=== PATIENT | female | born 1940 | race Caucasian/White ===

== ENCOUNTER 2016-11-16 19:22 | Inpatient (IN) ==
[2016-11-16] MEDS ORDERED: IOPAMIDOL 100 ML BOTTLE IJ ONE (19:23)
[2016-11-16] MEDS ORDERED: ONDANSETRON 4 MG/2 ML VIAL IV ONE ×2 (19:38→21:53)
[2016-11-16] MEDS: HYDROmorphone 2 MG/ML SYRINGE IV PRN ×2 (20:02→22:00)
[2016-11-16 20:43] LABS: Basophils # (Auto) 0.1 K/mcL (0.0-0.3); Basophils % (Auto) 0.7 % (0.0-2.0); Eosinophils # (Auto) 0.5 K/mcL (0.0-0.7); Eosinophils % (Auto) 4.5 % (0.0-7.0); Granulocytes % (Auto) 61.2 % (38.0-78.0); Lymphocytes # (Auto) 2.6 K/mcL (1.5-4.8); Lymphocytes % (Auto) 24.8 % (15.5-49.0); Mean Cell Volume 86.9 fL (80.0-100.0); Mean Corpuscular HGB Conc 33.4 g/dL (31.0-36.0); Monocytes # (Auto) 0.9 K/mcL (0.1-0.9); Monocytes % (Auto) 8.8 % (1.0-12.0); Platelet Count 252 K/mcL (140-440); Red Cell Distribution Width 12.7 % (11.5-14.5)
[2016-11-16 22:05] LABS: Appearance,Urine HAZY; Bacteria,Urine FEW /hpf (0); Bilirubin,Urine NEG (NEG); Color,Urine YELLOW; Glucose,Urine (UA) NEGATIVE (NEG); Leukocyte Esterase,Urine 25 /uL (NEG); Nitrate,Urine NEG (NEG); Protein,Urine NEG (NEG); Specific Gravity,Urine 1.008 (1.000-1.035); Urine Amorphous Crystals MOD /hpf (0); Urine Blood NEG mg/dL (<0.03); Urine RBC < 1 /hpf (0-1); Urine Squamous Epithelial Cell < 1 /hpf (0-4); Urine WBC 6 /hpf (0-4); Urobilinogen,Urine NEG (NEG)
[2016-11-16] MEDS: 0.9 % SODIUM CHLORIDE 1,000 ML IV SCH (23:40)
[2016-11-17] MEDS: ONDANSETRON 4 MG/2 ML VIAL IV PRN ×6 (02:42→20:08)
[2016-11-17] MEDS: HYDROmorphone 2 MG/ML SYRINGE IV PRN ×2 (02:44→23:40)
--- NOTE | 2016-11-17 07:10 | XRay Report ---
CLINICAL INFORMATION: Abdominal pain history of small bowel obstruction COMPARISON: None. FINDINGS: The stomach and multiple loops of proximal small bowel are mildly dilated and demonstrate air-fluid levels with decompression of the distal small bowel and colon. Findings compatible with partial mid jejunal obstruction. No soft tissue mass, organomegaly, pathologic calcification or free air. IMPRESSION: Partial small bowel obstruction - mid jejunal level Interpreted and Authenticated by: Rocky Arevalo 11/17/16
--- NOTE | 2016-11-17 07:17 | XRay Report ---
CLINICAL INFORMATION: Small bowel obstruction - NG placement COMPARISON: Abdominal film 11/16/2016 1948 hours FINDINGS: NG tube overlies the gastric body. Stomach and multiple loops of central small bowel remain mildly dilated with decompression of the distal small bowel and colon. No free air or soft tissue mass IMPRESSION: NG tube in satisfactory position tip overlies the gastric body. Small bowel obstruction pattern again noted Interpreted and Authenticated by: Rocky Arevalo 11/17/16
--- NOTE | 2016-11-17 09:03 | Cat Scan Report ---
CLINICAL INFORMATION: Abdominal pain and distention - suspect small bowel obstruction COMPARISON: 11/09/[address] TECHNIQUE: Following enteric contrast, 80 cc of Isovue-300 were injected intravenously, and 60 seconds later, 2.5 mm helical slices were obtained from the mid heart through the subtrochanteric regions. Following reconstruction, 2.5 mm sagittal, coronal and axial reformatted images were processed and reviewed at bone, lung and soft tissue windows. Five minutes later, 5 mm helical slices were obtained from the mid heart through the kidneys and viewed at soft tissue windows. FINDINGS: Lung bases show minor lingular scarring. No effusions. The visualized heart is mildly enlarged. Images through the abdomen show minimal fatty change within the liver, but no focal lesion. The gallbladder and bile ducts are normal: CBD is 5 mm. There is a 1.4 mm nonobstructing stone in an inferior calyx of the left kidney. Two simple cysts in the inferior pole the left kidney, 19 mm and 11 mm respectively, are unchanged. The remaining kidneys, adrenal, spleen, pancreas and aorta, including aortic branches, are normal in size, configuration and attenuation without focal lesion. Images through the pelvis show hysterectomy changes. A 2.8 cm cyst on the left ovary is stable since 2013 CT. There is moderate dilatation of the stomach, duodenum and proximal jejunum with transition into decompressed small bowel in the mid jejunum (coronal image 37, sagittal image 62 and axial image 81). It is likely due to adhesions or stricture. Distal small bowel bowel is moderately decompressed. There is less than expected amount of stool seen within the colon. Small amount of free peritoneal fluid is noted in the left false pelvis There is no free air. Bone windows show mild degenerative change in the lumbar spine IMPRESSION: 1. Partial small bowel obstruction at the mid jejunal level ostensibly related to adhesions or stricture. A very small amount of free fluid in the left pelvis may indicate early third spacing. There is no supportive evidence of ischemia or free air to suggest perforation. 2. Two cyst inferior pole left kidney, 11 mm and 19 mm respectively, stable. 1.4 mm nonobstructing stone inferior calyx left kidney. 3. 2.8 cm simple cyst left ovary unchanged Interpreted and Authenticated by: Rocky Arevalo 11/17/16
[2016-11-17] MEDS: 0.9 % SODIUM CHLORIDE 1,000 ML IV SCH ×2 (13:00→23:33)
[2016-11-17] MEDS: ACETAMINOPHEN W/CODEINE #3 1 TABLET PO PRN ×2 (13:01→20:08)
--- NOTE | 2016-11-17 14:19 | General Surg History&Physical ---
History of Present Illness Patient information: Note initiated : 11/17/16 at 2:15 pm Service Date, if different from initiated Date: [] Patient: Deepthi Giang 76 y/o F admitted on 11/16/16 for constipation, abdominal pain, n/v. Chief Complaint: [] Chief complaint: abdominal pain nausea and vomiting HPI: Ms. Giang is a 76 year old female with history of onset of mid abdominal pain with bloating on . This was followed by and continued throughout yesterday She came to the emergency room and it was noted that she had dilated loops of small bowel. CT of the abdomen suggests small bowel obstruction. She has had 3 episodes of small bowel obstruction in the past. 2 of these episodes required laparotomy with adhesio lysis. Her last episode was 11 years ago. Her last bowel movement was on Saturday. A small bowel follow-through was ordered during the night and she is presently undergoing the series Her initial 4 films shows slow transit through the small bowel. Review of Systems - Constitutional fatigue, headache(s), lethargy, malaise, night sweats, weakness - EENT Nose, mouth and throat: dizziness, headache(s), neck pain, no dysphagia - Cardiovascular claudication, dyspnea on exertion, palpatations, no chest pain at rest, no syncope - Respiratory no cough, no wheezing, no chest congestion - Gastrointestinal abdominal pain, belching, bloating, constipation, nausea, vomiting - Genitourinary Genitourinary: no dysuria, no flank pain, no nocturia, no urinary hesitancy, no urinary urgency - Musculoskeletal muscle cramps, muscle weakness, myalgias, neck pain - Integumentary no changing lesions, no lesions, no new lesions, no pruritus, no rash, no sores - Neurological headache(s), weakness - Psychiatric abnormal sleep pattern, anxiety, depression - Endocrine cold intolerance, fatigue, heat intolerance - Hematologic/Lymphatic no easy bleeding, no easy bruising, no lymphadenopathy - Allergic/Immunologic no tongue swelling, no throat swelling, no uticaria, no wheezing, no lip swelling Past History Past medical history: anemia Cerebral aneurysm degenerative disc disease Diabetes mellitus Hypertension Monoclonal gammopathy Polymyalgia rheumatica Chronic urinary tract infections Gastroesophageal reflux diseasewith stricture Past surgical history: appendectomy Craniotomy Exploratory laparotomy 2 Rotator cuff repair bdominal hysterectomy with bilateral salpingo-oophorectomy Past family history: owen diabetes mellitus Congestive heart failure Coronary artery disease Past social history: Lives locally Retired Never smoker Never drinker Does not use drugs Medications and Allergies Home Medications Medication Instructions Recorded Confirmed Type aspirin 81 mg chewable tablet 81 mg PO QDAY tab 02/21/15 11/17/16 History lysine 500 mg tablet 1,000 mg PO BID tab 02/21/15 11/17/16 History coenzyme Q10 30 mg capsule 30 mg PO QDAY cap 03/30/15 11/17/16 History blood sugar diagnostic strips See Dose Instructions .ROUTE 03/02/16 07/31/16 Rx .MEDSUPPLY #100 each blood-glucose meter kit See Dose Instructions .ROUTE 03/02/16 07/31/16 Rx .MEDSUPPLY #1 each lancets 33 gauge See Dose Instructions .ROUTE 03/02/16 07/31/16 Rx .MEDSUPPLY #100 each alpha lipoic acid 300 mg capsule 300 mg PO QDAY 07/31/16 11/17/16 History calcium carbonate 500 mg calcium 500 mg PO BID 07/31/16 11/17/16 History (1,250 mg) tablet carvedilol 3.125 mg tablet 3.125 mg PO BID #1 tab 07/31/16 11/17/16 Rx metformin 500 mg tablet 250 mg PO QDAY #45 tab 10/04/16 11/17/16 Rx acetaminophen 300 mg-codeine 30 mg 1 tab PO BID PRN #100 tab 11/09/16 11/17/16 Rx tablet losartan 100 mg tablet 100 mg PO QDAY #30 tab 11/15/16 11/17/16 Rx Natural Senna Laxative 1 PRN 11/17/16 History Allergies Allergy/AdvReac Type Severity Reaction Status Date / Time fluvastatin [From Lescol] Allergy Severe Unknown Verified 01/16/16 09:26 quetiapine [From Seroquel] Allergy Severe Unknown Verified 01/16/16 09:26 Moexipril [From Univasc] Allergy Intermediate Unknown Verified 01/16/16 09:26 rofecoxib [From Vioxx] Allergy Intermediate Unknown Verified 01/16/16 09:26 rosuvastatin [From Crestor] Allergy Intermediate Unknown Verified 01/16/16 09:26 simvastatin [From Vytorin] Allergy Intermediate Unknown Verified 01/16/16 09:26 [id number] Reductase Allergy Intermediate Unknown Verified 01/16/16 09:26 Inhibitor Sulfa (Sulfonamide Allergy Intermediate Unknown Verified 01/16/16 09:26 Antibiotics) topiramate [From Topamax] Allergy Intermediate Unknown Verified 01/16/16 09:26 pregabalin [From Lyrica] AdvReac Severe Muscle Verified 01/16/16 09:26 weakness ezetimibe [From Vytorin] AdvReac Mild Dark urine Verified 01/16/16 09:26 Exam Temp Pulse Resp BP Pulse Ox 97.2 F L 82 20 143/76 95 11/17/16 12:00 11/17/16 12:00 11/17/16 12:00 11/17/16 12:00 11/17/16 12:00 - General physical appearance well developed, well nourished, no distress - Eyes PERRL, normal ocular movement - ENT normal pinna, normal nares, normal mucosa, no hearing loss, no congestion - Head Head exam IM: Present: atraumatic, normocephalic - Neck no masses, no bruits, trachea midline, no lymphadectomy, no venous distension, limited ROM - Cardiovascular Cardiovascular exam IM: Present: normal rate and rhythm - Respiratory normal expansion, normal respiratory effort, clear to percussion, clear to auscultation - Abdomen Abdomen: Present: soft, tender (mild mid abdominal tenderness), bowel sounds, distended (oderate distention with hypoactive bowel sounds) Hernia: Present: none - Integumentary Present: no rash, no growths, no abnormal pigmentation - Neurologic Present: normal coordination, normal sensation - Musculoskeletal Present: normal gait, normal posture - Psychiatric Present: oriented to time, oriented to person, oriented to place, speech is normal, memory intact Assessment and Plan (1) Small bowel obstruction we'll complete small bowel follow-through and make decision concerning operative therapy based on the results of this test In the meantime she will be nothing by mouth with nasogastric suction If she starts to decompress will follow through untilthe morning and make a decision at that time Status: Acute (2) Cervical disc disorder of mid-cervical region Status: Chronic (3) Degenerative joint disease Status: Chronic Comment: chronic low back pain secondary to DJD. osteoarthritis of neck. 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
--- NOTE | 2016-11-17 14:21 | XRay Report ---
CLINICAL INFORMATION: Small bowel obstruction - mid jejunal level Technique: Water-soluble contrast and saline was administered orally and serial imaging was obtained over two hours FINDINGS: The stomach, duodenum and jejunum are mildly dilated. There appears be a very mild mid jejunal stricture which only mildly impeded the passage of the enteric contrast. On the two hour film, the enteric contrast passed passed into the entire small bowel and right colon. IMPRESSION: Focal narrowing of the mid jejunum which only mildly impeded passage of barium. Findings most compatible with resolving small bowel obstruction likely due to jejunal adhesion or stricture Interpreted and Authenticated by: Rocky Arevalo 11/17/16
[2016-11-17] MEDS: METOCLOPRAMIDE 10 MG/2 ML VIAL IV SCH ×2 (17:26→23:32)
[2016-11-18] MEDS: ACETAMINOPHEN W/CODEINE #3 1 TABLET PO PRN ×2 (01:22→21:47)
[2016-11-18] MEDS: ONDANSETRON 4 MG/2 ML VIAL IV PRN ×2 (01:24→22:13)
[2016-11-18] MEDS ORDERED: hydrALAZINE 20 MG/ML VIAL IV PRN ×3 (03:54→23:45)
[2016-11-18] MEDS ORDERED: hydrALAZINE 20 MG/ML VIAL ONE ×2 (04:07→06:00)
[2016-11-18] MEDS: HYDROmorphone 2 MG/ML SYRINGE IV PRN ×4 (04:24→17:52)
[2016-11-18] MEDS ORDERED: ACETAMINOPHEN 1,000 MG/100 ML BOTTLE IV PRN ×2 (06:00→07:16)
[2016-11-18] MEDS: METOCLOPRAMIDE 10 MG/2 ML VIAL IV SCH ×4 (06:04→23:59)
[2016-11-18 06:21] LABS: Basophils # (Auto) 0 K/mcL (0.0-0.3); Basophils % (Auto) 0.4 % (0.0-2.0); Eosinophils # (Auto) 0.2 K/mcL (0.0-0.7); Eosinophils % (Auto) 1.6 % (0.0-7.0); Granulocytes % (Auto) 71.4 % (38.0-78.0); Lymphocytes # (Auto) 1.8 K/mcL (1.5-4.8); Lymphocytes % (Auto) 19.1 % (15.5-49.0); Mean Cell Volume 88.8 fL (80.0-100.0); Mean Corpuscular Hemoglobin 29.3 pg (26.0-34.0); Monocytes # (Auto) 0.7 K/mcL (0.1-0.9); Monocytes % (Auto) 7.5 % (1.0-12.0); Platelet Count 196 K/mcL (140-440); RBC 4.02 M/mcL (4.00-5.20); Red Cell Distribution Width 13.1 % (11.5-14.5)
[2016-11-18] MEDS: hydrALAZINE 20 MG/ML VIAL IV SCH ×10 (06:54→23:45)
[2016-11-18] MEDS: 0.9 % SODIUM CHLORIDE 1,000 ML IV SCH ×4 (06:55→23:59)
[2016-11-18 07:16] LABS: Blood Urea Nitrogen 6 mg/dl (8-23)
--- NOTE | 2016-11-18 09:17 | XRay Report ---
CLINICAL INFORMATION: Follow small bowel obstruction COMPARISON: Small follow-through study 11/15/2016 FINDINGS: NG tip overlies the distal gastric body. Stool gas pattern is normal on today's study. The administered barium is scattered within the right and transverse colon. No free air or soft tissue mass IMPRESSION: Negative exam. Interval resolution in small bowel obstruction. Interpreted and Authenticated by: Rocky Arevalo 11/18/16
[2016-11-18] MEDS: KETOROLAC 15 MG/ML VIAL IV PRN ×3 (10:14→22:13)
--- NOTE | 2016-11-18 13:06 | General Surgery Progress Note ---
Subjective Patient reports: feels better, pain is less, flatus, bowel movement, afebrile Narrative: Note initiated : 11/18/16 at 1:03 pm Service Date, if different from initiated Date: [] Patient: Deepthi Giang 76 y/o F admitted on 11/16/16 for constipation, abdominal pain, n/v. Chief Complaint: [patient is doing much better. She had more bowel movements last night and has had flatus all day. Her morning x-rays shows near complete resolution of the small bowel distention. There is some contrast in the left colon. She has had headache which is a chronic problem and she has had some elevation in her blood pressure which has been controlled with intermittent IV medications.] Objective Temp Pulse Resp BP Pulse Ox 97.7 F 100 H 14 125/71 90 11/18/16 11:01 11/18/16 11:01 11/18/16 11:01 11/18/16 11:01 11/18/16 11:01 - Additional Data Intake & Output - Last 24 hours: Intake & Output 11/16/16 11/17/16 11/18/16 11/19/16 05:59 05:59 05:59 05:59 Intake Total 2120 / 2120 940 / 940 Output Total 300 / 850 2800 / 2800 300 / 300 Balance -300 / -850 -680 / -680 640 / 640 Weight 122 lb - Additional Exam HEENT no acute abnormality Neck supple without JVD Chest clear to auscultation Heart regular rhythm no ectopy Abdomen mild distention with good active bowel sounds, no tenderness noted Extremities no edema Neurologic exam no focal deficits - Labs 11/18/16 04:55 11/18/16 04:55 Diabetes panel 11/18/16 Range/Units 04:55 Sodium 137 (133-145) mmol/L Potassium 3.0 L (3.3-5.1) mmol/L Chloride 98 (96-108) mmol/L Carbon Dioxide 22 (22-30) mmol/L BUN 6 L (8-23) mg/dl Creatinine 0.6 (0.6-1.1) mg/dl Glucose 139 H (70-105) mg/dL Calcium 8.2 L (8.6-10.4) mg/dl Calcium panel 11/18/16 Range/Units 04:55 Calcium 8.2 L (8.6-10.4) mg/dl Pituitary panel 11/18/16 Range/Units 04:55 Sodium 137 (133-145) mmol/L Potassium 3.0 L (3.3-5.1) mmol/L Chloride 98 (96-108) mmol/L Carbon Dioxide 22 (22-30) mmol/L BUN 6 L (8-23) mg/dl Creatinine 0.6 (0.6-1.1) mg/dl Glucose 139 H (70-105) mg/dL Calcium 8.2 L (8.6-10.4) mg/dl Adrenal panel 11/18/16 Range/Units 04:55 Sodium 137 (133-145) mmol/L Potassium 3.0 L (3.3-5.1) mmol/L Chloride 98 (96-108) mmol/L Carbon Dioxide 22 (22-30) mmol/L BUN 6 L (8-23) mg/dl Creatinine 0.6 (0.6-1.1) mg/dl Glucose 139 H (70-105) mg/dL Calcium 8.2 L (8.6-10.4) mg/dl Assessment and Plan (1) Small bowel obstruction Status: Acute Assessment and plan: patient is significantly improved Nasogastric tube is discontinued She will be started on clear liquids If she does well she may be discharged late tomorrow Two-view abdominal x-rays in the morning Current Visit: Yes (2) Cervical disc disorder of mid-cervical region Status: Chronic Current Visit: No (3) Degenerative joint disease Problem details: chronic low back pain secondary to DJD. osteoarthritis of neck. Status: Chronic Current Visit: No (4) Diabetes mellitus type 2 in nonobese Status: Chronic Current Visit: No (5) Hypertension Status: Chronic Current Visit: No (6) Polymyalgia rheumatica Problem details: H/O Status: Chronic Current Visit: No - Time Spent With Patient Total time spent is greater than 50% in coordination of care (as documented) at patient's floor/unit and/or counseling patient:
[2016-11-18] MEDS ORDERED: POTASSIUM CHLORIDE 40 MEQ in DEXTROSE 5% IN WATER 500 ML IV ONE (13:30)
[2016-11-18] MEDS: PANTOPRAZOLE 40 MG PACKET PO SCH (17:59)
[2016-11-18] MEDS: CARVEDILOL 3.125 MG TABLET PO SCH (22:13)
[2016-11-19] MEDS: ONDANSETRON 4 MG/2 ML VIAL IV PRN (02:34)
[2016-11-19] MEDS: ACETAMINOPHEN W/CODEINE #3 1 TABLET PO PRN ×2 (02:35→14:42)
[2016-11-19 05:47] LABS: Basophils # (Auto) 0 K/mcL (0.0-0.3); Basophils % (Auto) 0.2 % (0.0-2.0); Eosinophils # (Auto) 0 K/mcL (0.0-0.7); Eosinophils % (Auto) 0.5 % (0.0-7.0); Lymphocytes # (Auto) 1.8 K/mcL (1.5-4.8); Lymphocytes % (Auto) 17.8 % (15.5-49.0); Mean Cell Volume 89.6 fL (80.0-100.0); Mean Corpuscular Hemoglobin 29.6 pg (26.0-34.0); Monocytes # (Auto) 0.9 K/mcL (0.1-0.9); Monocytes % (Auto) 9.5 % (1.0-12.0); Platelet Count 183 K/mcL (140-440); RBC 3.46 M/mcL (4.00-5.20); Red Cell Distribution Width 13.2 % (11.5-14.5)
[2016-11-19] MEDS: METOCLOPRAMIDE 10 MG/2 ML VIAL IV SCH ×2 (06:13→11:59)
[2016-11-19] MEDS: PANTOPRAZOLE 40 MG PACKET PO SCH (07:40)
--- NOTE | 2016-11-19 08:02 | XRay Report ---
HISTORY: Reason for Exam:FOR F/U OF ILEUS FINDINGS: There is oral contrast in the colon. There are multiple air-fluid levels in the large intestine but the colon is nondilated. The small intestine is decompressed and there is no residual contrast in the small bowel. No free intra-abdominal air is present. The nasogastric tube has been removed since yesterday. IMPRESSION: Resulting ileus Interpreted and Authenticated by: Kurtis Botello 11/19/16
[2016-11-19] MEDS: CARVEDILOL 3.125 MG TABLET PO SCH (08:47)
[2016-11-19 08:50] LABS: Albumin 3.6 gm/dL (3.2-5.2); Albumin/Globulin Ratio 1.6 (1.0-2.3)
[2016-11-19] MEDS ORDERED: LOSARTAN 50 MG TABLET PO SCH (09:00)
[2016-11-19] MEDS: 0.9 % SODIUM CHLORIDE 1,000 ML IV SCH (09:44)
--- NOTE | 2016-11-19 15:46 | General Surgery Progress Note ---
Subjective Patient reports: feels better, pain is less, tolerating liquids well, flatus, bowel movement, afebrile Narrative: Note initiated : 11/19/16 at 3:43 pm Service Date, if different from initiated Date: [] Patient: Deepthi Giang 76 y/o F admitted on 11/16/16 for Constipation,Abd Pain ,N/V /Small Bowel Obstruction. Chief Complaint: [the patient is doing much better. She no longer has abdominal pain. She denies having nause. She has passed a large volume of flatus and has had another small bowel movement. She still has mild distention but he denies having any discomfort. Abdominal x-rays show complete decompression of small bowel with a small amount of gas in the colon.] Objective Temp Pulse Resp BP Pulse Ox 98.3 F 79 16 148/66 93 11/19/16 11:43 11/19/16 11:43 11/19/16 11:43 11/19/16 11:43 11/19/16 11:43 - Additional Data Intake & Output - Last 24 hours: Intake & Output 11/17/16 11/18/16 11/19/16 11/20/16 05:59 05:59 05:59 05:59 Intake Total 2120 / 2120 3440 / 3440 1215 / 1215 Output Total 300 / 850 2800 / 2800 1525 / 1525 1000 / 1000 Balance -300 / -850 -680 / -680 1915 / 1915 215 / 215 Weight 122 lb 122 lb 8 oz - Additional Exam HEENT--- no abnormality noted Neck--supple Chest--- clear to auscultation Heart---regular rhythm no tachycardia Abdomen--- soft pliable, nondistended, with active bowel ssounds Extremities--- no edema - Labs 11/19/16 04:45 11/19/16 04:45 Diabetes panel 11/19/16 11/19/16 Range/Units 04:45 04:45 Sodium TNP 135 Potassium TNP 3.8 Chloride TNP 99 Carbon Dioxide TNP 22 BUN TNP 9 Creatinine TNP 0.5 L Glucose TNP 114 H Calcium TNP 8.1 L AST TNP 20 ALT TNP 12 Alkaline Phosphatase TNP 59 Total Protein TNP 5.9 Albumin TNP 3.6 Calcium panel 11/19/16 11/19/16 Range/Units 04:45 04:45 Calcium TNP 8.1 L Albumin TNP 3.6 Pituitary panel 11/19/16 11/19/16 Range/Units 04:45 04:45 Sodium TNP 135 Potassium TNP 3.8 Chloride TNP 99 Carbon Dioxide TNP 22 BUN TNP 9 Creatinine TNP 0.5 L Glucose TNP 114 H Calcium TNP 8.1 L Adrenal panel 11/19/16 11/19/16 Range/Units 04:45 04:45 Sodium TNP 135 Potassium TNP 3.8 Chloride TNP 99 Carbon Dioxide TNP 22 BUN TNP 9 Creatinine TNP 0.5 L Glucose TNP 114 H Calcium TNP 8.1 L Total Bilirubin TNP 0.3 AST TNP 20 ALT TNP 12 Alkaline Phosphatase TNP 59 Total Protein TNP 5.9 Albumin TNP 3.6 Assessment and Plan (1) Small bowel obstruction Status: Acute Assessment and plan: patient is significantly improved Stable for discharge Current Visit: Yes (2) Cervical disc disorder of mid-cervical region Status: Chronic Current Visit: No (3) Degenerative joint disease Problem details: chronic low back pain secondary to DJD. osteoarthritis of neck. Status: Chronic Current Visit: No (4) Diabetes mellitus type 2 in nonobese Status: Chronic Current Visit: No (5) Hypertension Status: Chronic Current Visit: No (6) Polymyalgia rheumatica Problem details: H/O Status: Chronic Current Visit: No - Time Spent With Patient Total time spent is greater than 50% in coordination of care (as documented) at patient's floor/unit and/or counseling patient:
--- NOTE | 2016-11-19 15:52 | Discharge Summary ---
Providers - Providers Patient information: Note initiated : 11/19/16 at 3:49 pm Service Date, if different from initiated Date: [] Patient: Deepthi Giang 76 y/o F admitted on 11/16/16 for Constipation,Abd Pain ,N/V /Small Bowel Obstruction. Chief Complaint: [] Date of admission: 11/17/16 Discharge date: 11/19/16 Attending physician: Nisha Lawson CT of abdomen and pelvis Gastrografin small bowel follow-through Hospitalization Hospital course: 76-year-old female who was admitted on 17 November with abdominal pain, distention , nausea and vomiting. She was seen in the emergency room with dilated loops of small bowel and CT of the abdomen suggested intestinal obstruction. She underwent small bowel follow through and had resolution of the obstruction after 3 hours. She is tolerating a diet and is now stable for discharge home. Discharge diagnosis: small bowel obstruction, partial Reason for admission: small bowel obstruction Procedures: none Pertinent studies/significant findings: CT of abdomen and pelvis Small bowel follow-through Complications: none Exam Temp Pulse Resp BP Pulse Ox 98.3 F 79 16 148/66 93 11/19/16 11:43 11/19/16 11:43 11/19/16 11:43 11/19/16 11:43 11/19/16 11:43 - Eyes PERRL, normal ocular movement - Head Head exam IM: Present: atraumatic, normocephalic - Neck no masses, no bruits, trachea midline, no lymphadectomy, no venous distension - Cardiovascular Cardiovascular exam IM: Present: normal rate and rhythm, +S1, +S2. Absent: JVD , systolic murmur, tachycardia Type of murmur IM: Present: systolic Intensity IM: 3/6 - Respiratory normal expansion, normal respiratory effort, clear to percussion, clear to auscultation - Abdomen Abdomen: Present: soft, non tender, bowel sounds, distended Hernia: Present: none - Neurologic Present: normal coordination, normal sensation Discharge Plan - Patient/Caregiver Discharge Instructions Activity: increase activity as tolerated Diet: Regular Diet Additional Instructions: MiraLAX 1 capful in 8 ounces of liquid daily as needed - Follow up Plan Follow up with: Isma Alonso MD [Primary Care Provider] - Disposition: Home, Self-Care Prognosis: Good Rehab Potential: Good I certify that the patient requires SNF services.: No Overall status at discharge: patient is back to baseline Pending Studies Resuscitation Status Full Code Diet Full Liquid Diet Start SatNov 19 Breakfast Acetaminophen/Codeine Phosphate (Tylenol #3) 0 tab PO Q6HP PRN PRN Reason: Pain Last Admin: 11/19/16 14:42 Dose: 1 tab Admin: 11/19/16 02:35 Dose: 1 tab Admin: 11/18/16 21:47 Dose: 1 tab Admin: 11/18/16 01:22 Dose: 1 tab Admin: 11/17/16 20:08 Dose: 1 tab Admin: 11/17/16 13:01 Dose: 1 tab Carvedilol (Coreg) 3.125 mg PO BID LYN Last Admin: 11/19/16 08:47 Dose: 3.125 mg Admin: 11/18/16 22:13 Dose: 3.125 mg Diagnostic Test (Pha) (Accu-Chek) 1 each FS Q6 LYN Last Admin: 11/19/16 11:56 Dose: 1 each Admin: 11/19/16 06:13 Dose: 1 each Admin: 11/18/16 23:59 Dose: 1 each Admin: 11/18/16 18:05 Dose: 1 each Admin: 11/18/16 11:59 Dose: 1 each Admin: 11/18/16 06:05 Dose: 1 each Admin: 11/17/16 23:40 Dose: 1 each Admin: 11/17/16 17:26 Dose: 1 each Hydromorphone HCl (Dilaudid) 0.5 - 2 mg IV Q2HP PRN PRN Reason: Pain Last Admin: 11/18/16 17:52 Dose: 0.5 mg Admin: 11/18/16 10:07 Dose: 0.5 mg Admin: 11/18/16 06:59 Dose: 1 mg Admin: 11/18/16 04:24 Dose: 0.5 mg Admin: 11/17/16 23:40 Dose: 0.5 mg Admin: 11/17/16 02:44 Dose: 0.5 mg Sodium Chloride (Sodium Chloride 0.9%) 1,000 mls @ 100 mls/hr IV .Q10H LYN Last Admin: 11/19/16 09:44 Dose: 100 mls/hr Infusion: 11/19/16 09:44 Dose: 100 mls/hr Admin: 11/18/16 23:59 Dose: 100 mls/hr Infusion: 11/18/16 18:57 Dose: 100 mls/hr Admin: 11/18/16 14:44 Dose: Not Given Admin: 11/18/16 08:57 Dose: 100 mls/hr Infusion: 11/18/16 08:57 Dose: 100 mls/hr Admin: 11/18/16 06:55 Dose: Not Given Admin: 11/17/16 23:33 Dose: 100 mls/hr Infusion: 11/17/16 23:00 Dose: 100 mls/hr Admin: 11/17/16 13:00 Dose: 100 mls/hr Infusion: 11/17/16 09:40 Dose: 100 mls/hr Admin: 11/16/16 23:40 Dose: 100 mls/hr Acetaminophen (Ofirmev) 1,000 mg in 100 mls @ 200 mls/hr IV Q6HP PRN PRN Reason: PAIN/FEVER > 101 Last Admin: 11/18/16 12:01 Dose: 200 mls/hr Ketorolac Tromethamine (Toradol) 15 mg IV Q6HP PRN PRN Reason: Headache Stop: 11/20/16 03:55 Last Admin: 11/18/16 22:13 Dose: 15 mg Admin: 11/18/16 16:28 Dose: 15 mg Admin: 11/18/16 10:14 Dose: 15 mg Losartan Potassium (Cozaar) 100 mg PO QDAY [facility] Last Admin: 11/19/16 08:47 Dose: 100 mg Metoclopramide HCl (Reglan) 10 mg IV Q6 LYN Last Admin: 11/19/16 11:59 Dose: 10 mg Admin: 11/19/16 06:13 Dose: 10 mg Admin: 11/18/16 23:59 Dose: 10 mg Admin: 11/18/16 17:56 Dose: 10 mg Admin: 11/18/16 12:01 Dose: 10 mg Admin: 11/18/16 06:04 Dose: 10 mg Admin: 11/17/16 23:32 Dose: 10 mg Admin: 11/17/16 17:26 Dose: 10 mg Ondansetron HCl (Zofran) 4 mg IV Q4HP PRN PRN Reason: Nausea And Vomiting Last Admin: 11/19/16 02:34 Dose: 4 mg Admin: 11/18/16 22:13 Dose: 4 mg Admin: 11/18/16 01:24 Dose: 4 mg Admin: 11/17/16 20:08 Dose: 4 mg Admin: 11/17/16 13:00 Dose: 4 mg Admin: 11/17/16 12:48 Dose: 4 mg Admin: 11/17/16 10:33 Dose: 4 mg Admin: 11/17/16 07:13 Dose: 4 mg Admin: 11/17/16 02:42 Dose: 4 mg Pantoprazole Sodium (Protonix) 40 mg PO BIDAC LYN Last Admin: 11/19/16 07:40 Dose: 40 mg Admin: 11/18/16 17:59 Dose: 40 mg Shift Summary 11/19/16 15:13 Shift Summary by Hina Laboy Vitals stable on room air. Has tolerated full liquid diet and denies nausea. Has ambulated in halls with . Very small formed BM. ABD soft with active bowel sounds. One Tylenol #3 given for headache. Blood sugar this A.M was 104 and at noon 153, however pt had started eating prior to checking sugar. Pt awaiting MD and hoping to discharge. Initialized on 11/19/16 15:13 - END OF NOTE
[2016-11-19] MEDS ORDERED: ACETAMINOPHEN W/CODEINE #3 1 TABLET PO PRN (15:57)
[2016-11-19] MEDS ORDERED: SENNOSIDES 1 TABLET PO PRN (16:03)
[2016-11-19] MEDS ORDERED: LYSINE 1000 MG PO SCH (21:00)
[2016-11-19] MEDS ORDERED: CALCIUM (OYSTER SHELL) 500 MG TABLET PO SCH (21:00)
[2016-11-20] MEDS ORDERED: metFORMIN 500 MG TABLET PO SCH (08:00)
--- NOTE | 2016-11-20 08:54 | Emergency Department Note ---
General Adult HPI - General Chief complaint: Abdominal Pain Stated complaint: constipation, abdominal pain, n/v Time Seen by Provider: 11/16/16 20:24 Source: patient Mode of arrival: ambulatory Limitations: no limitations - History of Present Illness HPI Narrative: 76-year-old female with a history of abdominal pain with nausea, vomiting, has not had a bowel movement in the last 3-4 days and some abdominal cramping in the mid epigastric region. She's had a history of previous surgeries in the past, mobile obstructions. sHe is afebrile. Denies urgency, frequency or dysuria - Related Data Home Medications Medication Instructions Recorded Confirmed aspirin 81 mg chewable tablet 81 mg PO QDAY tab 02/21/15 11/17/16 lysine 500 mg tablet 1,000 mg PO BID tab 02/21/15 11/17/16 coenzyme Q10 30 mg capsule 30 mg PO QDAY cap 03/30/15 11/17/16 alpha lipoic acid 300 mg capsule 300 mg PO QDAY 07/31/16 11/17/16 calcium carbonate 500 mg calcium 500 mg PO BID 07/31/16 11/17/16 (1,250 mg) tablet Natural Senna Laxative 1 tab PO DAILY PRN 11/17/16 11/17/16 Previous Rx's Medication Instructions Recorded blood sugar diagnostic strips See Dose Instructions .ROUTE 03/02/16 .MEDSUPPLY #100 each blood-glucose meter kit See Dose Instructions .ROUTE 03/02/16 .MEDSUPPLY #1 each lancets 33 gauge See Dose Instructions .ROUTE 03/02/16 .MEDSUPPLY #100 each carvedilol 3.125 mg tablet 3.125 mg PO BID #1 tab 07/31/16 metformin 500 mg tablet 250 mg PO QDAY #45 tab 10/04/16 acetaminophen 300 mg-codeine 30 mg 1 tab PO BID PRN #100 tab 11/09/16 tablet losartan 100 mg tablet 100 mg PO QDAY #30 tab 11/15/16 Allergies Allergy/AdvReac Type Severity Reaction Status Date / Time fluvastatin [From Lescol] Allergy Severe Unknown Verified 01/16/16 09:26 quetiapine [From Seroquel] Allergy Severe Unknown Verified 01/16/16 09:26 Moexipril [From Univasc] Allergy Intermediate Unknown Verified 01/16/16 09:26 rofecoxib [From Vioxx] Allergy Intermediate Unknown Verified 01/16/16 09:26 rosuvastatin [From Crestor] Allergy Intermediate Unknown Verified 01/16/16 09:26 simvastatin [From Vytorin] Allergy Intermediate Unknown Verified 01/16/16 09:26 Zzofgir-Yrb-Yoi Reductase Allergy Intermediate Unknown Verified 01/16/16 09:26 Inhibitor Sulfa (Sulfonamide Allergy Intermediate Unknown Verified 01/16/16 09:26 Antibiotics) topiramate [From Topamax] Allergy Intermediate Unknown Verified 01/16/16 09:26 pregabalin [From Lyrica] AdvReac Severe Muscle Verified 01/16/16 09:26 weakness ezetimibe [From Vytorin] AdvReac Mild Dark urine Verified 01/16/16 09:26 Review of Systems All systems ED: reviewed and negative except as stated. Constitutional: Denies: fever, chills Eyes: Denies: eye pain ENT ED: Denies: ear pain, throat pain Cardiovascular: Denies: chest pain Respiratory: Denies: cough Gastrointestinal: Reports: abdominal pain, nausea, vomiting. Denies: diarrhea, constipation, hematemesis, melena Past Medical History - Past Medical History Medical history: Reports: other Family history: Reports: non-contributory - Social History smoking status: Never smoker Alcohol use: Reports: None Physical Exam - General Limitations: no limitations General appearance: alert, in no apparent distress - Head Head exam: atraumatic - Eye Eye exam: Present: normal appearance, PERRL - ENT ENT exam: normal exam, normal oropharynx, mucous membranes moist - Neck Neck exam: Present: normal inspection, full ROM - Chest Chest inspection: Present: normal inspection - Respiratory Respiratory exam: Present: normal lung sounds bilaterally. Absent: respiratory distress - Cardiovascular Cardiovascular exam: Present: regular rate, normal rhythm. Absent: bradycardia - Abdominal Exam Abdominal exam: Present: tenderness, diminished bowel sounds. Absent: guarding , rebound - Extremities Exam Extremities exam: Present: normal inspection, full ROM - Back Exam Back exam: Present: normal inspection, full ROM - Neurological Exam Neurological exam: Present: oriented X3, CN II-XII intact - Psychiatric Psychiatric exam: Present: normal affect, normal mood - Skin Skin exam: Present: warm, dry Course Vital Signs Temperature 96.9 F L 11/16/16 19:23 Pulse Rate 91 H 11/16/16 19:23 Respiratory Rate 14 11/16/16 19:23 Blood Pressure 161/97 11/16/16 19:23 Pulse Oximetry (%) 99 11/16/16 19:23 Temperature 98.7 F 11/19/16 15:47 Pulse Rate 89 11/19/16 15:47 Respiratory Rate 16 11/19/16 15:47 Blood Pressure 153/73 11/19/16 15:47 Pulse Oximetry (%) 93 11/19/16 16:07 Medical Decision Making - MDM Narrative Medical decision making narrative: X-ray reveals air fluid levels and CT confirms small bowel obstruction. Dr. Lawson contacted G-tube inserted. Patient admitted - Lab Data Result diagrams: 11/19/16 04:45 11/19/16 04:45 Lab Results 11/16/16 11/16/16 11/16/16 Range/Units 19:41 20:10 21:13 WBC 10.4 (4.5-11.0) K/mcL RBC 4.50 (4.00-5.20) M/mcL Hgb 13.1 (12.0-15.0) g/dL Hct 39.1 (36.0-48.0) % POC Hct 40.0 (36.0-48.0) % MCV 86.9 (80.0-100.0) fL MCH 29.0 (26.0-34.0) pg MCHC 33.4 (31.0-36.0) g/dL RDW 12.7 (11.5-14.5) % Plt Count 252 (140-440) K/mcL MPV 9.0 (7.4-10.4) fL Gran % 61.2 (38.0-78.0) % Lymph % (Auto) 24.8 (15.5-49.0) % [place] % (Auto) 8.8 (1.0-12.0) % Eos % (Auto) 4.5 (0.0-7.0) % Baso % (Auto) 0.7 (0.0-2.0) % Gran # 6.3 (1.8-8.0) K/mcL Lymph # 2.6 (1.5-4.8) K/mcL [place] # 0.9 (0.1-0.9) K/mcL Eos # 0.5 (0.0-0.7) K/mcL Baso # 0.1 (0.0-0.3) K/mcL POC Sodium 131 L (133-145) mmol/L POC Potassium 4.0 (3.3-5.1) mmol/L POC Chloride 92 L (96-108) mmol/L POC Total CO2 27 (22-30) mmol/L POC BUN 15 (8-23) mg/dl POC Creatinine 0.7 (0.6-1.1) mg/dl POC Glucose 151 H (70-105) mg/dL POC WB Ioniz Calcium 1.13 L (1.16-1.32) mmol/L Urine Color Yellow Urine Appearance Hazy Urine pH 8.0 (5.0-9.0) Ur Specific [place] 1.008 (1.000-1.035) Urine Protein Neg (NEG) mg/dL Urine Glucose (UA) Negative (NEG) mg/dL Urine Ketones Neg (NEG) mg/dL Urine Occult Blood Neg (<0.03) mg/dL Urine Nitrate Neg (NEG) Urine Bilirubin Neg (NEG) mg/dL Urine Urobilinogen Neg (NEG) mg/dL Ur Leukocyte Esterase 25 A (NEG) /uL Urine RBC < 1 (0-1) /hpf Urine WBC 6 H (0-4) /hpf Ur Squamous Epith Cells < 1 (0-4) /hpf Amorphous Crystals Mod A (0) /hpf Urine Bacteria Few A (0) /hpf Ur Culture Indicated? Yes Disposition Clinical Impression: Small bowel obstruction Disposition: Xfer As Inpt ([facility]) Condition: Good
[2016-11-20] MEDS ORDERED: UBIDECARENONE 30 MG PO SCH (09:00)
[2016-11-20] MEDS ORDERED: ALPHA LIPOIC ACID 300 MG PO SCH (09:00)
[2016-11-20] MEDS ORDERED: ASPIRIN 81 MG TAB.CHEW PO SCH (09:00)
== END 2016-11-19 16:40 | disposition home or self-care (01) | DRG 390 ==
LOC: ED 19:22 → MEDSUR 23:20
PROVIDERS: ADMIT Family Medicine Adult Medicine; ATTEND Family Medicine Adult Medicine

== ENCOUNTER 2018-06-19 17:02 | Inpatient (IN) ==
[2018-06-19] MEDS ORDERED: IOPAMIDOL 100 ML BOTTLE IV ONE (17:03)
[2018-06-19] MEDS ORDERED: 0.9 % SODIUM CHLORIDE 1,000 ML IV ONE (17:12)
[2018-06-19] MEDS ORDERED: ALTEPLASE IV ONE (17:24)
[2018-06-19] MEDS ORDERED: ASPIRIN 81 MG TAB.CHEW CHEWED ONE (17:45)
--- NOTE | 2018-06-19 17:54 | Emergency Department Note ---
Neuro HPI - General Chief Complaint: Stroke Symptoms Stated Complaint: Stroke symptoms Time Seen by Provider: 06/19/18 17:52 Source: patient, family Mode of arrival: wheelchair Limitations: no limitations - History of Present Illness HPI Narrative: About 4:55 PM patient was in the process of driving with her and she was headed toward [place]. She suddenly experienced tingling to the left side of face also weakness to the left leg, left arm weakness and tingling, the then drove her in and she arrives via private vehicle. 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 No associated nausea vomiting, she does report of improvement of her symptoms since arriving here in the ED denies chest pain denies shortness of breath, normal EKG. No history of trauma, no recent fevers or chills, otherwise unremarkable history. On Anticoagulants: No - Related Data Home Medications: Home Medications Medication Instructions Recorded Confirmed aspirin 81 mg chewable tablet 81 mg PO QDAY tab 02/21/15 06/03/18 lysine 500 mg tablet 1,000 mg PO BID tab 02/21/15 06/03/18 coenzyme Q10 30 mg capsule 30 mg PO QDAY cap 03/30/15 06/03/18 alpha lipoic acid 300 mg capsule 300 mg PO QDAY 07/31/16 06/03/18 calcium carbonate 500 mg calcium 500 mg PO BID 07/31/16 06/03/18 (1,250 mg) tablet polyethylene glycol 3350 17 17 g PO QDAY 11/22/16 06/03/18 gram/dose oral powder estrogen vaginal cream 0.1 ml VAGINAL DAILY 04/17/17 06/03/18 acetaminophen ER 650 mg 650 mg PO ONCE PRN 07/01/17 06/03/18 tablet,extended release Previous Rx's Medication Instructions Recorded blood sugar diagnostic strips See Dose Instructions .ROUTE 03/02/16 .MEDSUPPLY #100 each blood-glucose meter kit See Dose Instructions .ROUTE 03/02/16 .MEDSUPPLY #1 each lancets 33 gauge See Dose Instructions .ROUTE 03/02/16 .MEDSUPPLY #100 each ascorbic acid (vitamin C) 500 mg 500 mg PO QDAY #1 tab 12/10/16 tablet ferrous sulfate 325 mg (65 mg 325 mg PO QDAY #1 tab 12/10/16 iron) tablet carvedilol 6.25 mg tablet 6.25 mg PO BID #180 tab 07/03/17 metformin 500 mg tablet 250 mg PO QDAY #45 tab 10/02/17 valsartan 160 mg tablet 160 mg PO QDAY #90 tab 01/07/18 acetaminophen 300 mg-codeine 30 mg 1 tab PO QID PRN #120 tab 06/03/18 tablet alprazolam 0.25 mg tablet 0.25 mg PO BID PRN #60 tab 06/03/18 Allergies/Adverse Reactions: Allergies Allergy/AdvReac Type Severity Reaction Status Date / Time fluvastatin [From Lescol] Allergy Severe Unknown Verified 06/03/18 08:55 quetiapine [From Seroquel] Allergy Severe Unknown Verified 06/03/18 08:55 Moexipril [From Univasc] Allergy Intermediate Unknown Verified 06/03/18 08:55 rofecoxib [From Vioxx] Allergy Intermediate Unknown Verified 06/03/18 08:55 rosuvastatin [From Crestor] Allergy Intermediate Unknown Verified 06/03/18 08:55 simvastatin [From Vytorin] Allergy Intermediate Unknown Verified 06/03/18 08:55 Rupdzgg-Rbj-Pdr Reductase Allergy Intermediate Unknown Verified 06/03/18 08:55 Inhibitor Sulfa (Sulfonamide Allergy Intermediate Unknown Verified 06/03/18 08:55 Antibiotics) topiramate [From Topamax] Allergy Intermediate Unknown Verified 06/03/18 08:55 tramadol Allergy Unknown Unknown Verified 06/03/18 08:55 pregabalin [From Lyrica] AdvReac Severe Muscle Verified 06/03/18 08:55 weakness ezetimibe [From Vytorin] AdvReac Mild Dark urine Verified 06/03/18 08:55 Review of Systems All systems ED: reviewed and negative except as stated. Eyes: Denies: eye pain ENT ED: Denies: ear pain, throat pain Cardiovascular: Denies: chest pain Respiratory: Denies: shortness of breath, cough Gastrointestinal: Denies: nausea, vomiting Neurological: Reports: headache, weakness, paresthesias Psychiatric: Reports: anxiety Allergic/Immunologic: Denies: facial swelling Past Medical History - Past Medical History Source: old records reviewed, nursing notes reviewed Medical history: Reports: arthritis, hypertension, osteoporosis, other Surgical history ED: Reports: other (status post craniotomy, aneurysm repair in the 70s.) Family history: Reports: non-contributory - Social History smoking status: Never smoker Alcohol use: Reports: None Drug use: Reports: none Physical Exam Limitations: no limitations General appearance: alert Head: atraumatic, normocephalic Eye: Present: normal appearance, PERRL, EOMI, visual hall intact. Absent: nystagmus, miosis (constriction), mydriasis (dilation) ENT: normal exam, normal oropharynx, mucous membranes moist, mucous membranes dry, TM's normal bilaterally, normal external ear exam Neck: Present: normal inspection, full ROM, trachea midline. Absent: tenderness , meningismus, lymphadenopathy Chest: Present: normal inspection, symmetric chest wall rise Respiratory: Present: normal lung sounds bilaterally. Absent: respiratory distress, rales/crackles, wheezes Cardiovascular: Present: regular rate, normal rhythm, normal heart sounds. Absent: bradycardia, tachycardia Abdominal: Present: soft, normal bowel sounds. Absent: distention, tenderness, guarding Extremities: Present: normal inspection, full ROM. Absent: tenderness, joint swelling Back: Present: normal inspection. Absent: CVA tenderness (R), CVA tenderness (L ) Neurological: Present: alert, oriented X3, CN II-XII intact, motor sensory deficit, other (minimal paresthesias to the left side of face, left lateral arm and left lateral calf area. She has good strength in all fours, normal flexion and extension, visual hall are intact, normal reflexes. Minimal deficits initially documented by the nurses. NIH stroke scale of 3) Psychiatric: Present: normal affect, anxious Skin: Present: warm, dry, intact, normal color. Absent: cyanosis Course Vital Signs Temperature 98.6 F 06/19/18 17:04 Respiratory Rate 16 06/19/18 17:04 Blood Pressure 211/119 06/19/18 17:04 Pulse Oximetry (%) 100 06/19/18 17:04 Temperature 98.6 F 06/19/18 17:04 Pulse Rate 84 06/19/18 17:48 Respiratory Rate 11 L 06/19/18 17:48 Blood Pressure 188/98 06/19/18 17:46 Pulse Oximetry (%) 98 06/19/18 17:48 Neuro Symptoms/Deficit - Lab Data Result diagrams: 06/19/18 17:13 06/19/18 17:12 Lab Results 06/19/18 06/19/18 Range/Units 17:12 17:12 POC Hct 39.0 (36.0-48.0) % POC PT 11.5 L (11.9-14.5) sec POC INR 1.0 (0.9-1.2) POC Sodium 139 (133-145) mmol/L POC Potassium 3.8 (3.3-5.1) mmol/L POC Chloride 95 L (96-108) mmol/L POC Total CO2 28 (22-30) mmol/L POC BUN 23 (8-23) mg/dl POC Creatinine 1.0 (0.6-1.1) mg/dl POC Glucose 132 H (70-105) mg/dL POC WB Ioniz Calcium 1.22 (1.16-1.32) mmol/L Disposition Referrals: Isma Alonso MD [Primary Care Provider] -
[2018-06-19 18:01] LABS: Basophils # (Auto) 0 K/mcL (0.0-0.3); Basophils % (Auto) 0.6 % (0.0-2.0); Eosinophils # (Auto) 0.4 K/mcL (0.0-0.7); Eosinophils % (Auto) 4.7 % (0.0-7.0); Granulocytes % (Auto) 39.4 % (38.0-78.0); Lymphocytes # (Auto) 3.4 K/mcL (1.5-4.8); Lymphocytes % (Auto) 45.4 % (15.5-49.0); Mean Corpuscular HGB Conc 33.8 g/dL (31.0-36.0); Mean Corpuscular Hemoglobin 30.4 pg (26.0-34.0); Monocytes # (Auto) 0.7 K/mcL (0.1-0.9); Monocytes % (Auto) 9.9 % (1.0-12.0); Platelet Count 210 K/mcL (140-440); RBC 4.16 M/mcL (4.00-5.20); Red Cell Distribution Width 12.6 % (11.5-14.5)
[2018-06-19 18:28] LABS: ALT/SGPT 31 U/l (0-40); Albumin 4.6 gm/dL (3.2-5.2); Albumin/Globulin Ratio 1.5 (1.0-2.3); Alkaline Phosphatase 66 U/L (39-117); Blood Urea Nitrogen 21 mg/dl (8-23)
[2018-06-19] MEDS ORDERED: LACTATED RINGERS 1,000 ML IV ONE (18:30)
[2018-06-19 19:38] LABS: Appearance,Urine CLEAR; Bacteria,Urine FEW /hpf (0); Bilirubin,Urine NEG (NEG); Color,Urine STRAW; Glucose,Urine (UA) NEGATIVE (NEG); Leukocyte Esterase,Urine 75 /uL (NEG); Protein,Urine 30 mg/dL (NEG); Specific Gravity,Urine 1.008 (1.000-1.035); Urine Blood NEG mg/dL (<0.03); Urine RBC < 1 /hpf (0-1); Urine Squamous Epithelial Cell 1 /hpf (0-4); Urine WBC 15 /hpf (0-4); Urobilinogen,Urine NEG (NEG)
[2018-06-19] MEDS ORDERED: ONDANSETRON 4 MG/2 ML VIAL IV PRN (20:05)
[2018-06-19] MEDS ORDERED: NALOXONE HCL 0.4 MG/ML VIAL IV PRN (20:05)
[2018-06-19] MEDS ORDERED: DEXTROSE 31 GM ORAL.SUSP PO PRN (20:05)
[2018-06-19] MEDS ORDERED: oxyCODONE/APAP 5/325MG TABLET PO PRN (20:05)
[2018-06-19] MEDS ORDERED: ACETAMINOPHEN 325 MG TABLET PO PRN (20:05)
[2018-06-19] MEDS ORDERED: DEXTROSE 50% 50 ML VIAL IV PRN (20:05)
--- NOTE | 2018-06-19 20:57 | Internal Med History&Physical ---
Medical - H&P: HPI Patient information: Note initiated : 06/19/18 at 8:52 pm Service Date, if different from initiated Date: [] Patient: Deepthi Giang a 77 y/o F admitted on 06/19/18 for Stroke symptoms. Chief Complaint: [] History of present illness: Ms. Giang is a 77 year old F with multiple medical issues, presents to the ER with complaints of left sided weakness, numbness. The patient was driving today, when suddenly she noticed weakness/numbness in the left arm, this progressed to weakness and numbness in the left leg as well as numbness on the left side of the face. Her was with her then drove the car and the patient was brought to the emergency room. The patient notes that she had difficulty in walking because of numbness in her leg. There is no complaints reports from the patient about facial deviation, no slurring of speech or any difficulty in recognition of speech. The patient was seen in the emergency room, NIH score was 3, her weakness had resolved, she still had some numbness in the left side of the body. Telemetry stroke neurology was consulted, head CT is negative. TPA was not administered. The patient had a CT angiogram done official results are not available but according to the ED physician they were clean. Over the last week or 2 the patient has been having increased frequency of urination foul-smelling urine and increased pressure. The patient has an ABCD score of 7, patient is being admitted to the hospital for further observation and expedited workup. The patient has history of diabetes, hypertension, hyperlipidemia. She denies any history of strokes in the past. Diabetes is reasonably well controlled but blood pressure seems to be elevated. The patient has hyperlipidemia but is not on any statin drug. 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 On presentation to the emergency room patient was afebrile heart rate 88 blood pressure 211/119 saturating 100% on room air respiratory rate 16. WBC count is 7.5, hemoglobin 12.6 platelets 210. Sodium 135 potassium 3.9 bicarbonate 24 creatinine 1.1 glucose 127 troponin is less than 0.01 UA positive leukocyte esterase and a few WBCs. ECG shows normal sinus rhythm. Head CT CT angiogram of the neck and head official reports are not available but according to the ER physician they are all negative All systems: reviewed and no additional remarkable complaints except as stated ( As per HPI or is negative) Medical - H&P: [facility] Medical history: Medical History (Last Updated 06/08/18 @ 17:35 by Isma Alonso MD) Stress (Chronic) Depression (Chronic) MVP (mitral valve prolapse) (Chronic) Pectus excavatum (Chronic) Costochondritis (Chronic) FH: heart disease (Chronic) MCGEE (dyspnea on exertion) (Resolved) Exertional chest pain (Resolved) Environmental allergies (Chronic) Chronic headaches (Chronic) History of recurrent UTIs (Chronic) GERD (gastroesophageal reflux disease) (Chronic) Steroid-induced hyperglycemia (Chronic) Peptic ulcer disease (Chronic) Hypercholesterolemia (Chronic) Cervicalgia (Chronic) Occipital neuralgia (Chronic) Abnormality of gait (Chronic) Insomnia (Chronic) Neck pain (Chronic) Gastric ulcer (Chronic) Lightheadedness (Chronic) Hx SBO (Chronic) Small bowel obstruction (Resolved) Ischial bursitis (Chronic) Inguinal pain (Chronic) Metabolic Syndrome X (Chronic) 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) Cataract of both eyes (Chronic) Drug-induced myopathy (Chronic) Hyponatremia (Resolved) Calcific tendinitis of left forearm (Chronic) Carpal tunnel syndrome, unspecified upper limb (Chronic) Trigger finger, left middle finger (Chronic) Monoclonal gammopathy (Chronic) Cervical disc disorder, unspecified, mid-cervical region (Chronic) Primary generalized (osteo)arthritis (Chronic) Other nonthrombocytopenic purpura (Chronic) Dysphagia (Chronic) Cough (Chronic) Diabetes mellitus type 2 in nonobese (Chronic) Hypertension (Chronic) Neuralgia and neuritis (Chronic) Myopathy (Chronic) Muscle weakness (generalized) (Chronic) Monoclonal paraproteinemia (Chronic) Dysmetabolic syndrome X (Chronic) long term care administrator current use of non-steroidal anti-inflammatories (NSAID) (Resolved) Hypertension, essential (Chronic) Hyperlipidemia (Chronic) Headache (Chronic) Degenerative disc disease (Chronic) Cyst (Resolved) Cerebral aneurysm, nonruptured (Chronic) Late effects of accidental fall (Resolved) Diabetes mellitus, type II (Chronic) Degenerative joint disease (Chronic) Basal cell carcinoma (Resolved) Arteritis (Chronic) Anxiety (Chronic) Paresthesia (Chronic) Polymyalgia rheumatica (Chronic) Anemia (Chronic) Tenosynovitis of finger, hand, or wrist (Resolved) Urinary tract infection (Resolved) Actinic keratosis (Resolved) Surgical history: Past Surgical History (Last Reviewed 06/03/18 @ 09:45 by Isma Alonso MD) History of exploratory laparotomy (Resolved) History of repair of rotator cuff (Resolved) Status post VALERI-BSO (Resolved) History of esophagogastroduodenoscopy (Resolved 06/12/11) History of craniotomy (Resolved) History of colonoscopy (Resolved 05/10/11) History of carpal tunnel release (Resolved) History of (Resolved) History of biopsy (Resolved 04/20/14) History of appendectomy (Resolved ~1968) History of rotator cuff surgery (Resolved ~1990) Pertinent family history: Family History (Last Reviewed 06/03/18 @ 09:45 by Isma Alonso MD) Unknown Asthma Family history of malignant neoplasm Mother Congestive heart failure Diabetes mellitus Esophageal varices Father Cardiac disease CAD (coronary artery disease) Stroke Family/Other Diabetes mellitus Cancer Family/Other Cancer Other Kidney stone Medical - H&P: Meds Home Medications Medication Instructions Recorded Confirmed Type aspirin 81 mg chewable tablet 81 mg PO QDAY tab 02/21/15 06/19/18 History coenzyme Q10 30 mg capsule 30 mg PO QDAY cap 03/30/15 06/19/18 History blood sugar diagnostic strips See Dose Instructions .ROUTE 03/02/16 06/03/18 Rx .MEDSUPPLY #100 each blood-glucose meter kit See Dose Instructions .ROUTE 03/02/16 06/03/18 Rx .MEDSUPPLY #1 each lancets 33 gauge See Dose Instructions .ROUTE 03/02/16 06/03/18 Rx .MEDSUPPLY #100 each alpha lipoic acid 300 mg capsule 300 mg PO QDAY 07/31/16 06/19/18 History calcium carbonate 500 mg calcium 500 mg PO BID 07/31/16 06/19/18 History (1,250 mg) tablet ascorbic acid (vitamin C) 500 mg 500 mg PO QDAY #1 tab 12/10/16 06/19/18 Rx tablet ferrous sulfate 325 mg (65 mg 325 mg PO QDAY #1 tab 12/10/16 06/19/18 Rx iron) tablet acetaminophen ER 650 mg 650 mg PO ONCE PRN 07/01/17 06/19/18 History tablet,extended release carvedilol 6.25 mg tablet 6.25 mg PO BID #180 tab 07/03/17 06/19/18 Rx metformin 500 mg tablet 250 mg PO QDAY #45 tab 10/02/17 06/19/18 Rx valsartan 160 mg tablet 160 mg PO QDAY #90 tab 01/07/18 06/19/18 Rx acetaminophen 300 mg-codeine 30 mg 1 tab PO QID PRN #120 tab 06/03/18 06/19/18 Rx tablet alprazolam 0.25 mg tablet 0.25 mg PO BID PRN #60 tab 06/03/18 06/19/18 Rx Omeprazole [PriLOSEC] 0.5 - 1 tab PO PRN PRN 06/19/18 06/19/18 History Tyrosine [l-Tyrosine] 500 mg PO BID 06/19/18 06/19/18 History Allergies Allergy/AdvReac Type Severity Reaction Status Date / Time fluvastatin [From Lescol] Allergy Severe Unknown Verified 06/03/18 08:55 quetiapine [From Seroquel] Allergy Severe Unknown Verified 06/03/18 08:55 Moexipril [From Univasc] Allergy Intermediate Unknown Verified 06/03/18 08:55 rofecoxib [From Vioxx] Allergy Intermediate Unknown Verified 06/03/18 08:55 rosuvastatin [From Crestor] Allergy Intermediate Unknown Verified 06/03/18 08:55 simvastatin [From Vytorin] Allergy Intermediate Unknown Verified 06/03/18 08:55 Xwkhjth-Ojo-Khx Reductase Allergy Intermediate Unknown Verified 06/03/18 08:55 Inhibitor Sulfa (Sulfonamide Allergy Intermediate Unknown Verified 06/03/18 08:55 Antibiotics) topiramate [From Topamax] Allergy Intermediate Unknown Verified 06/03/18 08:55 pregabalin [From Lyrica] AdvReac Severe Muscle Verified 06/03/18 08:55 weakness ezetimibe [From Vytorin] AdvReac Mild Dark urine Verified 06/03/18 08:55 tramadol AdvReac Unknown Confusion Verified 06/19/18 20:54 Medical - H&P: Exam - Constitutional Vitals: Temp Pulse Resp BP Pulse Ox 98.6 F 84 11 L 175/89 96 06/19/18 17:04 06/19/18 19:44 06/19/18 19:44 06/19/18 19:44 06/19/18 19:44 Exam: GENERAL: The patient is a well-developed, well-nourished in no apparent distress. Is alert and oriented x3. VITAL SIGNS: Reviewed and as noted elsewhere. HEENT: Head is normocephalic and atraumatic. Extraocular muscles are intact. Pupils are equal, round, and reactive to light. Nares appeared normal. Mouth appears any without lesions. Mucous membranes are moist. NECK: Normal to inspection, Supple, No lymphadenopathy or thyromegaly. LUNGS: Air entry equal on both sides, no wheezing, crackles or rhonchi noted. No accessory muscles of respiration HEART: Regular rate and rhythm normal, S1 and S2 heard, no Gallop, S3 or Rub Noted, No Gross murmur heard. ABDOMEN: Soft, nontender, and nondistended. Positive bowel sounds. No hepatosplenomegaly was noted. EXTREMITIES: No cyanosis, clubbing, rash, lesions or edema. NEUROLOGIC: CN 2 , 3,4, neg has left sided facial numbness, outside and intraorally. gag reflex more prominent on the right side, uvula centered, no tongue deviation. strength 4++/ in the left side, 5 in the right side, in both upper and lower extremities tone normal sensations decreased to touch througout the left side, 30% compared to right. PSYCHIATRIC: Normal affect, Normal Mood. Appropriate Behavior. SKIN: No ulceration or wounds noted, No jaundice, No rash noted. Medical - H&P: Reslt - Labs CBC & Chem 7: 06/19/18 17:13 06/19/18 17:12 Labs: Short CBC 06/19/18 Range/Units 17:13 WBC 7.5 (4.5-11.0) K/mcL Hgb 12.6 (12.0-15.0) g/dL Hct 37.4 (36.0-48.0) % Plt Count 210 (140-440) K/mcL BMP 06/19/18 17:12 Sodium 135 Potassium 3.9 Chloride 96 Carbon Dioxide 24 BUN 21 Creatinine 1.1 Glucose 127 H Calcium 9.7 Cardiac Enzymes 06/19/18 Range/Units 17:12 Troponin T < 0.01 (0-0.03) ng/ml Liver Function 06/19/18 Range/Units 17:12 Total Bilirubin < 0.2 (0.0-1.0) mg/dL AST 33 (0-37) U/l ALT 31 (0-40) U/l Alkaline Phosphatase 66 (39-117) U/L Albumin 4.6 (3.2-5.2) gm/dL Urine 06/19/18 Range/Units 18:25 Urine Color Straw Urine Appearance Clear Urine pH 8.0 (5.0-9.0) Ur Specific Branch 1.008 (1.000-1.035) Urine Protein 30 A (NEG) mg/dL Urine Glucose (UA) Negative (NEG) mg/dL Medical - H&P: A/P - Narrative A/P Narrative: TIA vs Acute Stroke -CT head and CTA neck head is reported as negative. -BP is uncontrolled, but will allow permissive hypertension for now -Tele stroke reviewed the patient and no tpa was given -DM seems reasnoably controlled -no afib on ekg, pt was on asa and had this event, will switch to clopidogrel -monitor on tele -neurocheck q4hrs -MRI brain in AM HTN - allow permissive hypertension for now HLD -check lipid profile, ldl was high this year -Statin induced myopathy was a consideration for muscle weakness, I have advised the patient to revisit this issue in light of stroke. DM -glucose well controlled, -ssi insulin for glucose control, try to keep glucose < 140 UTI -Urinary symptoms present, with abnormal UA -IV rochepin for now total 3 days treatment planned -follow urine culture Chronic pain/headaches/Depression -Resume home meds as appropriate DVT -Hep sq Diet -Carb consistent,cardiac Code Status -Full code Medical - H&P: Qual - Stroke Onset of Symptoms Date: 06/19/18 Onset of Symptoms Time: 16:55 Symptom Onset Unknown: No Social History - Social History household members: spouse housing: house lives independently: Yes marital status: education level: college occupational status: retired pets and animals: Yes - Dietary Habits well-balanced diet: daily or most days - Tobacco smoking status: Never smoker - Alcohol alcohol intake frequency: does not drink - Substance use substance use type: does not use
[2018-06-19] MEDS: INSULIN LISPRO 1 UNIT/0.01 ML UNIT SQ SCH (21:14)
[2018-06-19] MEDS: HEPARIN 5,000 UNIT/ML VIAL SQ SCH (21:14)
[2018-06-19] MEDS: 0.9 % SODIUM CHLORIDE 10 ML SYRINGE IV SCH (21:14)
[2018-06-19] MEDS: cefTRIAXone 1 GM VIAL IV SCH (21:15)
[2018-06-19 23:58] LABS: Hemoglobin A1C 5.8 % HGB (4.0-6.0)
[2018-06-20] MEDS: 0.9 % SODIUM CHLORIDE 10 ML SYRINGE IV SCH ×3 (05:22→21:01)
[2018-06-20 06:33] LABS: Basophils # (Auto) 0 K/mcL (0.0-0.3); Basophils % (Auto) 0.5 % (0.0-2.0); Eosinophils # (Auto) 0.3 K/mcL (0.0-0.7); Eosinophils % (Auto) 4.3 % (0.0-7.0); Granulocytes % (Auto) 56.8 % (38.0-78.0); Lymphocytes # (Auto) 2.1 K/mcL (1.5-4.8); Lymphocytes % (Auto) 29.1 % (15.5-49.0); Mean Cell Volume 90.6 fL (80.0-100.0); Mean Corpuscular HGB Conc 33.7 g/dL (31.0-36.0); Mean Corpuscular Hemoglobin 30.5 pg (26.0-34.0); Monocytes # (Auto) 0.7 K/mcL (0.1-0.9); Monocytes % (Auto) 9.3 % (1.0-12.0); Platelet Count 189 K/mcL (140-440); RBC 3.86 M/mcL (4.00-5.20); Red Cell Distribution Width 12.8 % (11.5-14.5)
[2018-06-20 06:50] LABS: ALT/SGPT 24 U/l (0-40); Albumin 4.2 gm/dL (3.2-5.2); Albumin/Globulin Ratio 1.6 (1.0-2.3); Alkaline Phosphatase 53 U/L (39-117); Bilirubin,Direct < 0.2 mg/dL (0.0-0.3); Blood Urea Nitrogen 15 mg/dl (8-23); Gamma Glutamyl Transpeptidase 20 U/L (5-36); Uric Acid 3.9 mg/dL (2.5-8.0)
[2018-06-20] MEDS: INSULIN LISPRO 1 UNIT/0.01 ML UNIT SQ SCH ×4 (07:31→21:00)
[2018-06-20] MEDS: HEPARIN 5,000 UNIT/ML VIAL SQ SCH ×2 (07:32→20:59)
--- NOTE | 2018-06-20 07:51 | Cat Scan Report ---
History: Acute stroke symptoms with neurologic deficit. TECHNIQUE: The brain was imaged without contrast at 2.5 mm intervals. Radiation exposure was limited using dose reduction technology. There is a 2 cm low-attenuation lesion in the periventricular white matter lateral to the frontal horn of left lateral ventricle. This involves the peripheral border of the head of left caudate nucleus and the anterior limb of the left internal capsule. This may be due to focal or severe white matter ischemia or an old infarct. Smaller similar findings are present in the subcortical white matter in the right frontal lobe and in the left thalamus. These findings have remained stable since 01/08/18. An acute infarct is not identified. There is no hemorrhage, cerebral edema or mass effect. The ventricles are normal in size allowing for mild generalized atrophy. There are chronic post craniotomy changes in the right frontal bone. IMPRESSION: Old infarct or age-related degenerative white matter ischemia in the left frontal lobe and left caudate nuclei. Small old lacunar infarct left thalamus No acute abnormality is detected. Dr. Orozco was called with report on 06/19/18 at 5:25 PM Interpreted and Authenticated by: Kurtis Botello 06/20/18
--- NOTE | 2018-06-20 08:02 | Cat Scan Report ---
History: Acute stroke symptoms with neurologic deficit TECHNIQUE: Following injection of 80 cc of Isovue-370, arterial phase images were acquired from the aortic arch to the top of the head. Sagittal and coronal reformats were created of the head and neck separately. 3-D volume rendered images were also created. Radiation exposure was limited using dose reduction technology. FINDINGS: The aortic arch and great vessels arising from the aorta are normal in caliber. There is eccentric calcified plaque distortion the left subclavian artery. This is not causing stenosis. The cervical portions of both carotid arteries are normal. The carotid bifurcations are normal without evidence of plaque formation or stenosis. The vertebral arteries are normal and nearly symmetric. Intracranial arterial circulation is normal without evidence of stenosis, thrombosis or vascular occlusion. There is no aneurysm or vascular malformation. No enhancing lesion is seen within the brain. Incidentally noted are small colloid cysts in the thyroid and degenerative disc disease and arthritis in the cervical spine. IMPRESSION: Normal arterial circulation in the brain and neck Dr. Orozco was called with the results Interpreted and Authenticated by: Kurtis Botello 06/20/18
[2018-06-20] MEDS ORDERED: FENOFIBRATE 54 MG TABLET PO SCH (09:00)
[2018-06-20] MEDS: CLOPIDOGREL 75 MG TABLET PO SCH (09:48)
[2018-06-20] MEDS: ACETAMINOPHEN W/CODEINE #3 1 TABLET PO PRN ×2 (12:51→18:35)
[2018-06-20] MEDS: cefTRIAXone 1 GM VIAL IV SCH (12:51)
--- NOTE | 2018-06-20 13:32 | Magnetic Resonance Report ---
CLINICAL INFORMATION: Stroke symptoms with new onset right-sided weakness and dizziness COMPARISON: Brain MRI on 08/08/16 TECHNIQUE:Sagittal T1 FLAIR, axial T1 FLAIR, T2 FLAIR propeller, T2 propeller, gradient, diffusion, ADC and coronal T2 weighted images were acquired. FINDINGS: The diffusion sequence demonstrates a 4 x 6 mm acute nonhemorrhagic infarct in the central portion of the right thalamus. This was not present in 2017. No hemorrhage is present. The T2 and FLAIR sequences reveal the presence of multiple scattered high signal lesions in the ding radiata and centrum semiovale above the tentorium with milder involvement in the elsie. This is a chronic stable finding. No hemorrhage or mass are present. The ventricles are normal in size. There is susceptibility artifact laterally in the right-sided head due to a plate from prior craniotomy. IMPRESSION: New 4 x 6 mm lacunar infarct in the right thalamus Moderate generalized white matter disease which may be related to ischemia or degeneration. This has not changed Interpreted and Authenticated by: Kurtis Botello 06/20/18
--- NOTE | 2018-06-20 14:11 | Internal Med Progress Note ---
Medical - PN: Subj Patient information: Note initiated : 06/20/18 at 2:08 pm Service Date, if different from initiated Date: [] Patient: Deepthi Giang a 77 y/o F admitted on 06/19/18 for Stroke symptoms. Chief Complaint: [] Interval history: Ms. Giang is a 77 year old F with multiple medical issues, presents to the ER with complaints of left sided weakness, numbness. The patient was driving today, when suddenly she noticed weakness/numbness in the left arm, this progressed to weakness and numbness in the left leg as well as numbness on the left side of the face. Her was with her then drove the car and the patient was brought to the emergency room. The patient notes that she had difficulty in walking because of numbness in her leg. There is no complaints reports from the patient about facial deviation, no slurring of speech or any difficulty in recognition of speech. The patient was seen in the emergency room, NIH score was 3, her weakness had resolved, she still had some numbness in the left side of the body. Telemetry stroke neurology was consulted, head CT is negative. TPA was not administered. The patient had a CT angiogram done official results are not available but according to the ED physician they were clean. Over the last week or 2 the patient has been having increased frequency of urination foul-smelling urine and increased pressure. The patient has an ABCD score of 7, patient is being admitted to the hospital for further observation and expedited workup. The patient has history of diabetes, hypertension, hyperlipidemia. She denies any history of strokes in the past. Diabetes is reasonably well controlled but blood pressure seems to be elevated. The patient has hyperlipidemia but is not on any statin drug. 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 On presentation to the emergency room patient was afebrile heart rate 88 blood pressure 211/119 saturating 100% on room air respiratory rate 16. WBC count is 7.5, hemoglobin 12.6 platelets 210. Sodium 135 potassium 3.9 bicarbonate 24 creatinine 1.1 glucose 127 troponin is less than 0.01 UA positive leukocyte esterase and a few WBCs. ECG shows normal sinus rhythm. Head CT CT angiogram of the neck and head official reports are not available but according to the ER physician they are all negative 06/20 Pt seen examined, no acute overnight issues Neuro exam unchanged, MRI head and echo done. I can see a right thalamic infarct on DWI but will await official read Reviewed labs, elevated TG and LDL, need to consider statin, educated pt family the need to talk with their neurologist regarding same Advised to consider starting on fish oil for atleast lowering of TG and pt would need better blood pressure control. Pertinent ROS: Denies headache, dizziness Denies chest pain, palpitations Denies cough or shortness of breath Denies abdominal pain, nausea or vomiting. - Constitutional Vitals: Vital Signs Temp Pulse Resp BP Pulse Ox 97.4 F 76 16 141/79 95 06/20/18 12:00 06/20/18 04:00 06/20/18 12:00 06/20/18 12:00 06/20/18 12:00 Period Temp Pulse Resp BP Sys/Tay Pulse Ox Last 24 Hr 96.9 F-99.0 F 76-89 10-21 132-211/78-119 90-100 Intake and Output 06/20/18 06/20/18 06/20/18 05:59 13:59 21:59 Intake Total 0 / 0 Output Total 800 / 800 Balance -800 / -800 Intake & Output: Intake & Output 06/20/18 06/20/18 06/20/18 05:59 13:59 21:59 Intake Total 0 / 0 Output Total 800 / 800 Balance -800 / -800 Intake: Oral 0 / 0 Output: Void Amount 800 / 800 Other: Meal Lunch Percent of Meal Consumed 75% Feeding Ability Independent Urine Appearance Clear Urine Color Bright Yellow Urine Odor Normal Stool Size Moderate Stool Color Brown Stool Consistency Soft Formed Exam: Constitutional; Afebrile, cooperative, alert, not in distress. Eyes- No icterus, , No periorbital swelling Ears- Ext ear normal, hearing normal to conversation. Neck- Midline trachea, supple Respiratory system: Air Entry equal on both sides, No crackles or wheezing, no rhonchi. CVS- Rate rhythm regular, S1,S2 heard, no gallop, no rub. Abdomen- Soft nontender abdomen, no organomegaly, no tenderness, no guarding or rigidity, SPLITTER MACHINE- AOOx3, moving all extremities, exam unchanged from yesterday, very mild left side weakness 4 ++, right side is normal. jamel sensory loss stable . Medical - PN: Obj Da - Labs CBC & Chem 7: 06/20/18 04:05 06/20/18 04:05 Labs: Abnormal Lab Results 06/20/18 06/20/18 06/19/18 04:05 04:05 18:25 RBC 3.86 L Hgb 11.8 L Hct 35.0 L POC PT POC Chloride Glucose 106 H POC Glucose Triglycerides Cholesterol LDL Cholesterol, Calc Non-HDL Cholesterol Urine Protein 30 A Ur Leukocyte Esterase 75 A Urine WBC 15 H Urine Bacteria Few A 06/19/18 06/19/18 06/19/18 17:12 17:12 17:12 RBC Hgb Hct POC PT 11.5 L POC Chloride 95 L Glucose 127 H POC Glucose 132 H Triglycerides 317 H Cholesterol 280 H LDL Cholesterol, Calc 165 H Non-HDL Cholesterol 228 H Urine Protein Ur Leukocyte Esterase Urine WBC Urine Bacteria Meds: Medications Acetaminophen (Tylenol) 650 mg PO Q6HP PRN PRN Reason: PAIN/FEVER > 101 Acetaminophen/Codeine Phosphate (Tylenol #3) 1 tab PO Q4-6HP PRN PRN Reason: PAIN LEVEL 3-6 Last Admin: 06/20/18 12:51 Dose: 1 tab Ceftriaxone Sodium (Rocephin) [address] [facility] Last Admin: 06/20/18 12:51 Dose: 1 gm Clopidogrel Bisulfate (Plavix) [address] [facility] Last Admin: 06/20/18 09:48 Dose: Not Given Dextrose (Dextrose 50%) 0 ml IV UD PRN PRN Reason: Hypoglycemia Diagnostic Test (Pha) (Accu-Chek) 1 each FS [facility] Last Admin: 06/20/18 12:25 Dose: 1 each Glucose (Insta-Glucose) 15 gm PO PRN PRN PRN Reason: Hypoglycemia Heparin Sodium (Porcine) (Heparin) 5,[address] [facility] Last Admin: 06/20/18 07:32 Dose: 5,000 unit Insulin Human Lispro (Humalog) 0 unit SQ [facility]; Protocol Last Admin: 06/20/18 12:25 Dose: Not Given Naloxone HCl (Narcan) 0.1 mg IV Q2MIN PRN PRN Reason: Opiate Reversal Ondansetron HCl (Zofran) 4 mg IV Q4HP PRN PRN Reason: Nausea And Vomiting Sodium Chloride (Saline Flush) 10 ml IV Q8 [facility] Last Admin: 06/20/18 12:25 Dose: 10 ml Medical - PN: A/P - Time Spent With Patient Total time spent is greater than 50% in coordination of care (as documented) at patient's floor/unit and/or counseling patient: - Narrative A/P Narrative: Acute Stroke -CT head and CTA neck head is reported as negative. -BP is uncontrolled, but will allow permissive hypertension for now -Tele stroke reviewed the patient and no tpa was given -DM seems reasonably controlled -no afib on ekg, pt was on asa and had this event, will switch to clopidogrel, -monitor on tele -neurocheck q4hrs -MRI brain done , report pending -Pt will benefit from statin looking at the lipid profile,they have been advised to talk with their neurologist. -consider using fish oil to lower TG HTN - allow permissive hypertension for now HLD -check lipid profile, ldl was high this year -Statin induced myopathy was a consideration for muscle weakness, I have advised the patient to revisit this issue in light of stroke. DM -glucose well controlled, -ssi insulin for glucose control, try to keep glucose < 140 UTI -Urinary symptoms present, with abnormal UA -IV rochepin for now total 3 days treatment planned -follow urine culture Chronic pain/headaches/Depression -Resume home meds as appropriate DVT -Hep sq Diet -Carb consistent,cardiac Code Status -Full code Medical - PN: Qual - Stroke Onset of Symptoms Date: 06/19/18 Onset of Symptoms Time: 16:55 Symptom Onset Unknown: No - VTE Deep Vein Thrombosis/Pulmonary Embolism Present on Admission: No
--- NOTE | 2018-06-20 14:29 | Internal Med Progress Note ---
Medical - PN: Subj Patient information: Note initiated : 06/20/18 at 2:27 pm Service Date, if different from initiated Date: [] Patient: Deepthi Giang a 77 y/o F admitted on 06/19/18 for Stroke symptoms. Chief Complaint: [] Interval history: Ms. Giang is a 77 year old F with multiple medical issues, presents to the ER with complaints of left sided weakness, numbness. The patient was driving today, when suddenly she noticed weakness/numbness in the left arm, this progressed to weakness and numbness in the left leg as well as numbness on the left side of the face. Her was with her then drove the car and the patient was brought to the emergency room. The patient notes that she had difficulty in walking because of numbness in her leg. There is no complaints reports from the patient about facial deviation, no slurring of speech or any difficulty in recognition of speech. The patient was seen in the emergency room, NIH score was 3, her weakness had resolved, she still had some numbness in the left side of the body. Telemetry stroke neurology was consulted, head CT is negative. TPA was not administered. The patient had a CT angiogram done official results are not available but according to the ED physician they were clean. Over the last week or 2 the patient has been having increased frequency of urination foul-smelling urine and increased pressure. The patient has an ABCD score of 7, patient is being admitted to the hospital for further observation and expedited workup. The patient has history of diabetes, hypertension, hyperlipidemia. She denies any history of strokes in the past. Diabetes is reasonably well controlled but blood pressure seems to be elevated. The patient has hyperlipidemia but is not on any statin drug. 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 On presentation to the emergency room patient was afebrile heart rate 88 blood pressure 211/119 saturating 100% on room air respiratory rate 16. WBC count is 7.5, hemoglobin 12.6 platelets 210. Sodium 135 potassium 3.9 bicarbonate 24 creatinine 1.1 glucose 127 troponin is less than 0.01 UA positive leukocyte esterase and a few WBCs. ECG shows normal sinus rhythm. Head CT CT angiogram of the neck and head official reports are not available but according to the ER physician they are all negative 06/20 Pt seen examined, no acute overnight issues Neuro exam unchanged, MRI head and echo done. I can see a right thalamic infarct on DWI but will await official read Reviewed labs, elevated TG and LDL, need to consider statin, educated pt family the need to talk with their neurologist regarding same Advised to consider starting on fish oil for atleast lowering of TG and pt would need better blood pressure control. 06/21 - Constitutional Vitals: Vital Signs Temp Pulse Resp BP Pulse Ox 97.4 F 76 16 141/79 95 06/20/18 12:00 06/20/18 04:00 06/20/18 12:00 06/20/18 12:00 06/20/18 12:00 Period Temp Pulse Resp BP Sys/Tay Pulse Ox Last 24 Hr 96.9 F-99.0 F 76-89 10-21 132-211/78-119 90-100 Intake and Output 06/20/18 06/20/18 06/20/18 05:59 13:59 21:59 Intake Total 0 / 0 Output Total 800 / 800 Balance -800 / -800 Intake & Output: Intake & Output 06/20/18 06/20/18 06/20/18 05:59 13:59 21:59 Intake Total 0 / 0 Output Total 800 / 800 Balance -800 / -800 Intake: Oral 0 / 0 Output: Void Amount 800 / 800 Other: Meal Lunch Percent of Meal Consumed 75% Feeding Ability Independent Urine Appearance Clear Urine Color Bright Yellow Urine Odor Normal Stool Size Moderate Stool Color Brown Stool Consistency Soft Formed Exam: General: Alert, Awake, No acute Distress Eyes/N/T: EOMI Head/Neck: neck supple, CV: RRR, No murmurs, Pulm: Clear b/l, no wheezing/rhonchi/rales Abd: soft, nontender, +BS x4 Ext: no clubbing/cyanosis/edema Neuro: Alert, mild left side weakness, left hemiparesis, moves all extremities Skin: warm/dry Medical - PN: Obj Da - Labs CBC & Chem 7: 06/20/18 04:05 06/20/18 04:05 Labs: Abnormal Lab Results 11/23/18 11/23/18 11/22/18 04:05 04:05 18:25 RBC 3.86 L Hgb 11.8 L Hct 35.0 L POC PT POC Chloride Glucose 106 H POC Glucose Triglycerides Cholesterol LDL Cholesterol, Calc Non-HDL Cholesterol Urine Protein 30 A Ur Leukocyte Esterase 75 A Urine WBC 15 H Urine Bacteria Few A 06/19/18 06/19/18 06/19/18 17:12 17:12 17:12 RBC Hgb Hct POC PT 11.5 L POC Chloride 95 L Glucose 127 H POC Glucose 132 H Triglycerides 317 H Cholesterol 280 H LDL Cholesterol, Calc 165 H Non-HDL Cholesterol 228 H Urine Protein Ur Leukocyte Esterase Urine WBC Urine Bacteria Meds: Medications Acetaminophen (Tylenol) 650 mg PO Q6HP PRN PRN Reason: PAIN/FEVER > 101 Acetaminophen/Codeine Phosphate (Tylenol #3) 1 tab PO Q4-6HP PRN PRN Reason: PAIN LEVEL 3-6 Last Admin: 06/20/18 12:51 Dose: 1 tab Ceftriaxone Sodium (Rocephin) 1 gm IV DAILY [facility] Last Admin: 06/20/18 12:51 Dose: 1 gm Clopidogrel Bisulfate (Plavix) 75 mg PO DAILY [facility] Last Admin: 06/20/18 09:48 Dose: Not Given Dextrose (Dextrose 50%) 0 ml IV UD PRN PRN Reason: Hypoglycemia Diagnostic Test (Pha) (Accu-Chek) 1 each FS [facility] Last Admin: 06/20/18 12:25 Dose: 1 each Fish Oil (Fish Oil) 1,000 mg PO BID [facility] Glucose (Insta-Glucose) 15 gm PO PRN PRN PRN Reason: Hypoglycemia Heparin Sodium (Porcine) (Heparin) 5,000 unit SQ Q12 [facility] Last Admin: 06/20/18 07:32 Dose: 5,000 unit Insulin Human Lispro (Humalog) 0 unit SQ [facility]; Protocol Last Admin: 06/20/18 12:25 Dose: Not Given Naloxone HCl (Narcan) 0.1 mg IV Q2MIN PRN PRN Reason: Opiate Reversal Ondansetron HCl (Zofran) 4 mg IV Q4HP PRN PRN Reason: Nausea And Vomiting Sodium Chloride (Saline Flush) 10 ml IV Q8 [facility] Last Admin: 06/20/18 12:25 Dose: 10 ml Medical - PN: A/P - Time Spent With Patient Total time spent is greater than 50% in coordination of care (as documented) at patient's floor/unit and/or counseling patient: - Narrative A/P Narrative: A: *Acute Stroke (Rigth Thalamic): -CT head and CTA neck head is reported as negative; Tele stroke reviewed the patient and no tpa was given -no afib on ekg, pt was on asa and had this event, -MRI with Right thalamic infarct *HTN/HLD: -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 -consider using fish oil to lower TG or tricor/lopid. -IV rochepin for now total 3 days treatment planned, pending UC - -if HHC upon d/c, provide pt/ot/st/dietary consult -ppx: heparin Medical - PN: Qual - Stroke Onset of Symptoms Date: 06/19/18 Onset of Symptoms Time: 16:55 Symptom Onset Unknown: No - VTE Deep Vein Thrombosis/Pulmonary Embolism Present on Admission: No
[2018-06-20] MEDS: FENOFIBRATE 43 MG CAPSULE PO SCH (18:06)
[2018-06-20] MEDS: FISH OIL 1,000 MG CAPSULE PO SCH (20:59)
[2018-06-21] MEDS: ACETAMINOPHEN W/CODEINE #3 1 TABLET PO PRN ×3 (01:29→13:48)
[2018-06-21] MEDS: 0.9 % SODIUM CHLORIDE 10 ML SYRINGE IV SCH ×3 (05:47→20:44)
[2018-06-21 06:43] LABS: Basophils # (Auto) 0 K/mcL (0.0-0.3); Basophils % (Auto) 0.4 % (0.0-2.0); Eosinophils # (Auto) 0.2 K/mcL (0.0-0.7); Eosinophils % (Auto) 2.7 % (0.0-7.0); Granulocytes % (Auto) 60.4 % (38.0-78.0); Lymphocytes # (Auto) 2.1 K/mcL (1.5-4.8); Lymphocytes % (Auto) 28.6 % (15.5-49.0); Mean Cell Volume 91.3 fL (80.0-100.0); Mean Corpuscular HGB Conc 33.7 g/dL (31.0-36.0); Mean Corpuscular Hemoglobin 30.8 pg (26.0-34.0); Monocytes # (Auto) 0.6 K/mcL (0.1-0.9); Monocytes % (Auto) 7.9 % (1.0-12.0); Platelet Count 189 K/mcL (140-440); RBC 4.05 M/mcL (4.00-5.20); Red Cell Distribution Width 12.9 % (11.5-14.5)
[2018-06-21 07:16] LABS: ALT/SGPT 23 U/l (0-40); Albumin 4.4 gm/dL (3.2-5.2); Albumin/Globulin Ratio 1.6 (1.0-2.3); Alkaline Phosphatase 58 U/L (39-117); Bilirubin,Direct < 0.2 mg/dL (0.0-0.3); Blood Urea Nitrogen 13 mg/dl (8-23); Gamma Glutamyl Transpeptidase 20 U/L (5-36); Uric Acid 3.3 mg/dL (2.5-8.0)
--- NOTE | 2018-06-21 07:22 | Internal Med Progress Note ---
Medical - PN: Subj Patient information: Note initiated : 06/21/18 at 7:18 am Service Date, if different from initiated Date: [] Patient: Deepthi Giang a 77 y/o F admitted on 06/19/18 for Stroke symptoms. Chief Complaint: [] Interval history: Ms. Giang is a 77 year old F with multiple medical issues, presents to the ER with complaints of left sided weakness, numbness. The patient was driving today, when suddenly she noticed weakness/numbness in the left arm, this progressed to weakness and numbness in the left leg as well as numbness on the left side of the face. Her was with her then drove the car and the patient was brought to the emergency room. The patient notes that she had difficulty in walking because of numbness in her leg. There is no complaints reports from the patient about facial deviation, no slurring of speech or any difficulty in recognition of speech. The patient was seen in the emergency room, NIH score was 3, her weakness had resolved, she still had some numbness in the left side of the body. Telemetry stroke neurology was consulted, head CT is negative. TPA was not administered. The patient had a CT angiogram done official results are not available but according to the ED physician they were clean. Over the last week or 2 the patient has been having increased frequency of urination foul-smelling urine and increased pressure. The patient has an ABCD score of 7, patient is being admitted to the hospital for further observation and expedited workup. The patient has history of diabetes, hypertension, hyperlipidemia. She denies any history of strokes in the past. Diabetes is reasonably well controlled but blood pressure seems to be elevated. The patient has hyperlipidemia but is not on any statin drug. 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 On presentation to the emergency room patient was afebrile heart rate 88 blood pressure 211/119 saturating 100% on room air respiratory rate 16. WBC count is 7.5, hemoglobin 12.6 platelets 210. Sodium 135 potassium 3.9 bicarbonate 24 creatinine 1.1 glucose 127 troponin is less than 0.01 UA positive leukocyte esterase and a few WBCs. ECG shows normal sinus rhythm. Head CT CT angiogram of the neck and head official reports are not available but according to the ER physician they are all negative 06/20 Pt seen examined, no acute overnight issues Neuro exam unchanged, MRI head and echo done. I can see a right thalamic infarct on DWI but will await official read Reviewed labs, elevated TG and LDL, need to consider statin, educated pt family the need to talk with their neurologist regarding same Advised to consider starting on fish oil for at least lowering of TG and pt would need better blood pressure control. 06/21 Slept well, no overnight events. Minimal weakness on left side. Numbness in left side present but improving. Patient is taking fish oil, did discuss fibrates which would would be better for LDL anyway. Family present all questions answered. Review of Systems: Mild headache some nausea last night. Denies headache/fever/chills/vomiting/ chest or abdominal pain/cough/dyspnea/diarrhea. Otherwise see above. - Constitutional Vitals: Vital Signs Temp Pulse Resp BP Pulse Ox 98.3 F 80 20 100/80 96 06/21/18 04:00 06/21/18 04:00 06/21/18 04:00 06/21/18 04:00 06/21/18 04:00 Period Temp Pulse Resp BP Sys/Tay Pulse Ox Last 24 Hr 97.4 F-98.9 F 76-82 16-22 100-150/74-84 93-97 Intake and Output 06/20/18 06/21/18 06/21/18 21:59 05:59 13:59 Intake Total 360 / 360 360 / 360 Output Total 350 / 350 500 / 500 Balance -140 / -140 Weight 51.483 kg Intake & Output: Intake & Output 06/20/18 06/21/18 06/21/18 21:59 05:59 13:59 Intake Total 360 / 360 360 / 360 Output Total 350 / 350 500 / 500 Balance -140 / -140 Weight 51.483 kg Intake: Oral 360 / 360 360 / 360 Output: Void Amount 350 / 350 500 / 500 Other: Meal Dinner Percent of Meal Consumed 100% Feeding Ability Independent Stool Size Small Stool Color Brown Stool Consistency Erika # Voids 1 2 # Bowel Movements 1 Exam: General: Alert, Awake, No acute Distress Eyes/N/T: EOMI Head/Neck: neck supple, CV: RRR, No murmurs, Pulm: Clear b/l, no wheezing/rhonchi/rales Abd: soft, nontender, +BS x4 Ext: no clubbing/cyanosis/edema Neuro: Alert, minima left side weakness, left hemiparesthesia improving, moves all extremities Skin: warm/dry Medical - PN: Obj Da - Labs CBC & Chem 7: 06/21/18 03:44 06/21/18 03:44 Labs: Abnormal Lab Results 06/21/18 06/20/18 06/20/18 03:44 04:05 04:05 RBC 3.86 L Hgb 11.8 L Hct 35.0 L POC PT POC Chloride Glucose 131 H 106 H POC Glucose Phosphorus 2.6 L Triglycerides Cholesterol LDL Cholesterol, Calc Non-HDL Cholesterol Urine Protein Ur Leukocyte Esterase Urine WBC Urine Bacteria 06/19/18 06/19/18 06/19/18 18:25 17:12 17:12 RBC Hgb Hct POC PT POC Chloride 95 L Glucose 127 H POC Glucose 132 H Phosphorus Triglycerides 317 H Cholesterol 280 H LDL Cholesterol, Calc 165 H Non-HDL Cholesterol 228 H Urine Protein 30 A Ur Leukocyte Esterase 75 A Urine WBC 15 H Urine Bacteria Few A 06/19/18 17:12 RBC Hgb Hct POC PT 11.5 L POC Chloride Glucose POC Glucose Phosphorus Triglycerides Cholesterol LDL Cholesterol, Calc Non-HDL Cholesterol Urine Protein Ur Leukocyte Esterase Urine WBC Urine Bacteria Meds: Medications Acetaminophen (Tylenol) 650 mg PO Q6HP PRN PRN Reason: PAIN/FEVER > 101 Acetaminophen/Codeine Phosphate (Tylenol #3) 1 tab PO Q4-6HP PRN PRN Reason: PAIN LEVEL 3-6 Last Admin: 06/21/18 05:46 Dose: 1 tab Ceftriaxone Sodium (Rocephin) 1 gm IV DAILY [facility] Last Admin: 06/20/18 12:51 Dose: 1 gm Clopidogrel Bisulfate (Plavix) 75 mg PO DAILY [facility] Last Admin: 06/20/18 09:48 Dose: Not Given Dextrose (Dextrose 50%) 0 ml IV UD PRN PRN Reason: Hypoglycemia Diagnostic Test (Pha) (Accu-Chek) 1 each FS ACHS [facility] Last Admin: 06/20/18 21:00 Dose: 1 each Fenofibrate (Antara) 129 mg PO DAILY [facility] Last Admin: 06/20/18 18:06 Dose: 129 mg Fish Oil (Fish Oil) 1,000 mg PO BID [facility] Last Admin: 06/20/18 20:59 Dose: 1,000 mg Glucose (Insta-Glucose) 15 gm PO PRN PRN PRN Reason: Hypoglycemia Heparin Sodium (Porcine) (Heparin) 5,000 unit SQ Q12 [facility] Last Admin: 06/20/18 20:59 Dose: 5,000 unit Insulin Human Lispro (Humalog) 0 unit SQ ACHS [facility]; Protocol Last Admin: 06/20/18 21:00 Dose: Not Given Naloxone HCl (Narcan) 0.1 mg IV Q2MIN PRN PRN Reason: Opiate Reversal Ondansetron HCl (Zofran) 4 mg IV Q4HP PRN PRN Reason: Nausea And Vomiting Last Admin: 06/21/18 01:28 Dose: 4 mg Sodium Chloride (Saline Flush) 10 ml IV Q8 [facility] Last Admin: 06/21/18 05:47 Dose: 10 ml Medical - PN: A/P - Time Spent With Patient Total time spent is greater than 50% in coordination of care (as documented) at patient's floor/unit and/or counseling patient: - Narrative A/P Narrative: A: *Acute Stroke (Right Thalamic): left hemiparesthesia and mild hemiparesis -CT head and CTA neck head is reported as negative; Tele stroke reviewed the patient and no tpa was given -no afib on ekg, pt was on asa and had this event, -MRI with Right thalamic infarct *Dysphagia, mild pharyngeal *HTN/HLD: -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 -started tricor. -IV rochepin for now total 3 days treatment planned, pending -pt/ot/st, CM -if C upon d/c, provide pt/ot/st/dietary consult -dysphagia diet per ST -ppx: heparin/ppi Medical - PN: Qual - Stroke Onset of Symptoms Date: 06/19/18 Onset of Symptoms Time: 16:55 Symptom Onset Unknown: No - VTE Deep Vein Thrombosis/Pulmonary Embolism Present on Admission: No
[2018-06-21] MEDS: INSULIN LISPRO 1 UNIT/0.01 ML UNIT SQ SCH ×4 (08:05→20:44)
[2018-06-21] MEDS: FISH OIL 1,000 MG CAPSULE PO SCH ×2 (08:12→20:43)
[2018-06-21] MEDS: cefTRIAXone 1 GM VIAL IV SCH (08:12)
[2018-06-21] MEDS: FENOFIBRATE 43 MG CAPSULE PO SCH (08:13)
[2018-06-21] MEDS ORDERED: ACETAMINOPHEN W/CODEINE #3 1 TABLET PO PRN (09:06)
[2018-06-21] MEDS ORDERED: ALPRAZolam 0.25 MG TABLET PO PRN (09:06)
[2018-06-21] MEDS ORDERED: POLYETHYLENE GLYCOL 3350 17 GM PACKET PO PRN (09:17)
[2018-06-21] MEDS ORDERED: NEUTRA PHOS 1 PACKET PO ONE (09:21)
--- NOTE | 2018-06-21 10:47 | Discharge Summary ---
Medical - DS: Prov Patient information: Note initiated : 06/21/18 at 10:42 am Service Date, if different from initiated Date: [] Patient: Deepthi Giang 77 y/o F admitted on 06/19/18 for Stroke symptoms. Chief Complaint: [] Date of admission: 06/19/18 20:00 Discharge date: 06/22/18 Primary care physician: Isma Alonso Medical - DS: Meds - Discharge Medications Prescriptions: Clopidogrel Bisulfate [Plavix] 75 mg PO DAILY #30 tab Fenofibrate Nanocrystallized [Tricor] 145 mg PO DAILY #30 tab Active and Home Medications: Home Medications aspirin 81 mg chewable tablet 81 mg PO QDAY tab 02/21/15 [History Confirmed Last Taken 04/17/17] coenzyme Q10 30 mg capsule 30 mg PO QDAY cap 03/30/15 [History Confirmed Last Taken 06/19/18 08:00] alpha lipoic acid 300 mg capsule 300 mg PO QDAY 07/31/16 [History Confirmed Last Taken 06/19/18 08:00] calcium carbonate 500 mg calcium (1,250 mg) tablet 500 mg PO BID 07/31/16 [ History Confirmed 06/19/18 Last Taken 06/19/18] ascorbic acid (vitamin C) 500 mg tablet 500 mg PO QDAY #1 tab 12/10/16 [Rx Confirmed 06/19/18 Last Taken 06/19/18 08:00] ferrous sulfate 325 mg (65 mg iron) tablet 325 mg PO QDAY #1 tab 12/10/16 [Rx Confirmed 06/19/18 Last Taken 06/19/18 08:00] acetaminophen ER 650 mg tablet,extended release 650 mg PO ONCE PRN 07/01/17 [ History Confirmed 06/19/18 Last Taken Unknown] carvedilol 6.25 mg tablet 6.25 mg PO BID #180 tab 07/03/17 [Rx Confirmed Last Taken 06/19/18 08:00] metformin 500 mg tablet 250 mg PO QDAY #45 tab 10/02/17 [Rx Confirmed 06/19/18 Last Taken 06/19/18 08:00] valsartan 160 mg tablet 160 mg PO QDAY #90 tab 01/07/18 [Rx Confirmed 06/19/18 Last Taken 06/19/18 08:00] acetaminophen 300 mg-codeine 30 mg tablet 1 tab PO QID PRN #120 tab 06/03/18 [ Rx Confirmed 06/19/18 Last Taken 06/19/18 08:00] alprazolam 0.25 mg tablet 0.25 mg PO BID PRN #60 tab 06/03/18 [Rx Confirmed Last Taken 06/19/18 08:00] Omeprazole [PriLOSEC] 0.5 - 1 tab PO PRN PRN 06/19/18 [History Confirmed Last Taken 06/19/18 08:00] Tyrosine [l-Tyrosine] 500 mg PO BID 06/19/18 [History Confirmed 06/19/18 Last Taken 06/19/18 08:00] Home Medications coenzyme Q10 30 mg capsule 30 mg PO QDAY cap 03/30/15 [History Confirmed Last Taken 06/19/18 08:00] alpha lipoic acid 300 mg capsule 300 mg PO QDAY 07/31/16 [History Confirmed Last Taken 06/19/18 08:00] calcium carbonate 500 mg calcium (1,250 mg) tablet 500 mg PO BID 07/31/16 [ History Confirmed 06/19/18 Last Taken 06/19/18] ascorbic acid (vitamin C) 500 mg tablet 500 mg PO QDAY #1 tab 12/10/16 [Rx Confirmed 06/19/18 Last Taken 06/19/18 08:00] ferrous sulfate 325 mg (65 mg iron) tablet 325 mg PO QDAY #1 tab 12/10/16 [Rx Confirmed 06/19/18 Last Taken 06/19/18 08:00] acetaminophen ER 650 mg tablet,extended release 650 mg PO ONCE PRN 07/01/17 [ History Confirmed 06/19/18 Last Taken Unknown] carvedilol 6.25 mg tablet 6.25 mg PO BID #180 tab 07/03/17 [Rx Confirmed Last Taken 06/19/18 08:00] metformin 500 mg tablet 250 mg PO QDAY #45 tab 10/02/17 [Rx Confirmed 06/19/18 Last Taken 06/19/18 08:00] valsartan 160 mg tablet 160 mg PO QDAY #90 tab 01/07/18 [Rx Confirmed 06/19/18 Last Taken 06/19/18 08:00] acetaminophen 300 mg-codeine 30 mg tablet 1 tab PO QID PRN #120 tab 06/03/18 [ Rx Confirmed 06/19/18 Last Taken 06/19/18 08:00] alprazolam 0.25 mg tablet 0.25 mg PO BID PRN #60 tab 06/03/18 [Rx Confirmed Last Taken 06/19/18 08:00] Omeprazole [Prilosec] 0.5 - 1 tab PO PRN PRN 06/19/18 [History Confirmed Last Taken 06/19/18 08:00] Tyrosine [l-Tyrosine] 500 mg PO BID 06/19/18 [History Confirmed 06/19/18 Last Taken 06/19/18 08:00] Clopidogrel Bisulfate [Plavix] 75 mg PO DAILY #30 tab 06/21/18 [Rx Last Taken Unknown] Fenofibrate Nanocrystallized [Tricor] 145 mg PO DAILY #30 tab 06/21/18 [Rx Last Taken Unknown] Medical - DS: Hosp Hospital course: Ms. Giang is a 77 year old F with multiple medical issues, presents to the ER with complaints of left sided weakness, numbness. The patient was driving today, when suddenly she noticed weakness/numbness in the left arm, this progressed to weakness and numbness in the left leg as well as numbness on the left side of the face. Her was with her then drove the car and the patient was brought to the emergency room. The patient notes that she had difficulty in walking because of numbness in her leg. There is no complaints reports from the patient about facial deviation, no slurring of speech or any difficulty in recognition of speech. The patient was seen in the emergency room, NIH score was 3, her weakness had resolved, she still had some numbness in the left side of the body. Telemetry stroke neurology was consulted, head CT is negative. TPA was not administered. The patient had a CT angiogram done official results are not available but according to the ED physician they were clean. Over the last week or 2 the patient has been having increased frequency of urination foul-smelling urine and increased pressure. The patient has an ABCD score of 7, patient is being admitted to the hospital for further observation and expedited workup. The patient has history of diabetes, hypertension, hyperlipidemia. She denies any history of strokes in the past. Diabetes is reasonably well controlled but blood pressure seems to be elevated. The patient has hyperlipidemia but is not on any statin drug. 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 On presentation to the emergency room patient was afebrile heart rate 88 blood pressure 211/119 saturating 100% on room air respiratory rate 16. WBC count is 7.5, hemoglobin 12.6 platelets 210. Sodium 135 potassium 3.9 bicarbonate 24 creatinine 1.1 glucose 127 troponin is less than 0.01 UA positive leukocyte esterase and a few WBCs. ECG shows normal sinus rhythm. Head CT CT angiogram of the neck and head official reports are not available but according to the ER physician they are all negative 06/20 Pt seen examined, no acute overnight issues Neuro exam unchanged, MRI head and echo done. I can see a right thalamic infarct on DWI but will await official read Reviewed labs, elevated TG and LDL, need to consider statin, educated pt family the need to talk with their neurologist regarding same Advised to consider starting on fish oil for at least lowering of TG and pt would need better blood pressure control. 06/21 Slept well, no overnight events. Minimal weakness on left side. Numbness in left side present but improving. Patient is taking fish oil, did discuss fibrates which would would be better for LDL anyway. Family present all questions answered. 06/22 No issues overnight feeling good. Stable for discharge. Discharge with home health care with follow-up PT OT ST dietary. Discharge diagnosis: Acute lacunar stroke right thalamus dysphasia Secondary discharge diagnosis: Diabetes hypertension chronic pain depression anxiety UTI - Time Spent with Patient Total time spent providing and/or coordinating discharge services: Greater than 30 minutes Medical - DS: Exam - Constitutional Vitals: Vital Signs Temp Pulse Resp BP Pulse Ox 06/21/18 08:00 96.3 F L 16 123/85 95 06/21/18 04:00 98.3 F 80 20 100/80 96 06/21/18 00:00 98.3 F 82 18 150/74 97 06/20/18 20:00 98.6 F 76 22 143/84 93 06/20/18 16:00 98.9 F 18 118/76 95 06/20/18 12:00 97.4 F 16 141/79 95 Intake and Output 06/20/18 06/21/18 06/21/18 21:59 05:59 13:59 Intake Total 360 / 360 360 / 360 460 / 460 Output Total 350 / 350 500 / 500 400 / 400 Balance -140 / -140 60 / 60 Intake: Oral 360 / 360 360 / 360 460 / 460 Output: Void Amount 350 / 350 500 / 500 400 / 400 Other: Meal Dinner Breakfast Percent of Meal Consumed 100% 50% Feeding Ability Independent Independent Stool Size Small Stool Color Brown Stool Consistency Erika # Voids 1 2 1 # Bowel Movements 1 Weight 51.483 kg Medical - DS: Data Labs on day of discharge: Labs from last 24 hours 06/21/18 06/21/18 03:44 03:44 WBC 7.2 RBC 4.05 Hgb 12.5 Hct 37.0 MCV 91.3 MCH 30.8 MCHC 33.7 RDW 12.9 Plt Count 189 MPV 9.5 Gran % 60.4 Lymph % (Auto) 28.6 [place] % (Auto) 7.9 Eos % (Auto) 2.7 Baso % (Auto) 0.4 Gran # 4.4 Lymph # (Auto) 2.1 [place] # (Auto) 0.6 Eos # (Auto) 0.2 Baso # (Auto) 0 Sodium 135 Potassium 3.9 Chloride 98 Carbon Dioxide 23 Anion Gap 14.0 BUN 13 Creatinine 0.6 GFR Calculation 89 Glucose 131 H Uric Acid 3.3 Calcium 9.1 Phosphorus 2.6 L Magnesium 2.3 Total Bilirubin 0.2 Direct Bilirubin < 0.2 GGT 20 AST 30 ALT 23 Alkaline Phosphatase 58 Lactate Dehydrogenase 213 Total Protein 7.1 Albumin 4.4 Globulin 2.7 Albumin/Globulin Ratio 1.6 Triglycerides 125 Preliminary micro results at discharge 06/19/18 18:25 Urine Culture - Preliminary Urine - Clean Void [facility] - DS: A/P - Patient/Caregiver Discharge Instructions Activity: increase activity as tolerated Diet: Consistent Carbohydrate (Dysphagia per ST) Additional Instructions: Follow-up with outpatient PT/OT/ST/dietary consult Referral to see neurologist for acute stroke 7-10 days Prescriptions: Clopidogrel Bisulfate [Plavix] 75 mg PO DAILY #30 tab Fenofibrate Nanocrystallized [Tricor] 145 mg PO DAILY #30 tab - Follow up Plan Follow up with: Isma Alonso MD [Primary Care Provider] - Disposition: Home Health Service Prognosis: Fair Rehab Potential: Fair Medical - DS: Qual - VTE Deep Vein Thrombosis/Pulmonary Embolism Present on Admission: No
[2018-06-21] MEDS: PANTOPRAZOLE 40 MG PACKET PO SCH (12:06)
[2018-06-21] MEDS: CLOPIDOGREL 75 MG TABLET PO SCH (12:06)
[2018-06-21] MEDS: HEPARIN 5,000 UNIT/ML VIAL SQ SCH ×2 (12:07→20:43)
[2018-06-21] MEDS: CARVEDILOL 3.125 MG TABLET PO SCH (20:43)
[2018-06-21] MEDS: CALCIUM (OYSTER SHELL) 500 MG TABLET PO SCH (20:43)
[2018-06-22] MEDS: ACETAMINOPHEN W/CODEINE #3 1 TABLET PO PRN ×2 (01:52→10:06)
[2018-06-22] MEDS: cefTRIAXone 1 GM VIAL IV SCH (08:32)
[2018-06-22] MEDS: FISH OIL 1,000 MG CAPSULE PO SCH (08:32)
[2018-06-22] MEDS: HEPARIN 5,000 UNIT/ML VIAL SQ SCH (08:32)
[2018-06-22] MEDS: PANTOPRAZOLE 40 MG PACKET PO SCH (08:33)
[2018-06-22] MEDS: CALCIUM (OYSTER SHELL) 500 MG TABLET PO SCH (08:33)
[2018-06-22] MEDS: CLOPIDOGREL 75 MG TABLET PO SCH (08:33)
[2018-06-22] MEDS: FENOFIBRATE 43 MG CAPSULE PO SCH (08:33)
[2018-06-22] MEDS: CARVEDILOL 3.125 MG TABLET PO SCH (08:33)
[2018-06-22] MEDS: INSULIN LISPRO 1 UNIT/0.01 ML UNIT SQ SCH ×2 (08:35→11:25)
[2018-06-22] MEDS: 0.9 % SODIUM CHLORIDE 10 ML SYRINGE IV SCH (08:35)
[2018-06-22] MEDS ORDERED: UBIDECARENONE 30 MG PO SCH (09:00)
[2018-06-22] MEDS ORDERED: VALSARTAN 160 MG TABLET PO SCH (09:00)
[2018-06-22] MEDS ORDERED: LOSARTAN 50 MG TABLET PO SCH (09:00)
[2018-06-22] MEDS ORDERED: ALPHA LIPOIC ACID 300 MG PO SCH (09:00)
== END 2018-06-22 13:00 | disposition home health service (06) | DRG 65 ==
LOC: ED 17:02 → ICU 17:02 → OBSVTOIN 20:00 → ICU 20:00
PROVIDERS: ADMIT Internal Medicine; ATTEND Internal Medicine
CPT/HCPCS: 80047; 85014; 97161; 99217; 99220; 99224; G8978; G8979; J0696; J1644; J2405; J7030; J7120; Q9967

== ENCOUNTER 2018-09-08 14:21 | Observation (INO) ==
--- NOTE | 2018-09-08 14:43 | Cat Scan Report ---
CLINICAL INFORMATION: Left-sided weakness. History of previous surgery. Confusion COMPARISON: Previous brain CT scan dated 06/19/2018. Previous MRI scan dated 06/20/2018 TECHNIQUE: Axial noncontrast-enhanced images through the brain. FINDINGS: No acute intracranial hemorrhage. No intra-axial hematoma. There is white matter abnormality consistent with small vessel ischemic change in this 78-year-old patient. There is a more focal area of low density in the left frontal lobe. This is periventricular and involves the anterior limb of the left internal capsule and left caudate nucleus. This is unchanged and is not acute. No localized mass effect. No midline shift. Patient has undergone previous right frontal craniotomy. No significant right frontal encephalomalacia. Brainstem and cerebellum are negative. No focal intra-axial herniation abnormality. No subdural hematoma. No subarachnoid hemorrhage. Basilar cisterns are negative. There is atherosclerotic calcification in the cavernous segments of the internal carotid arteries bilaterally. No acute calvarial fracture. No lytic lesion. Temporal bones are negative. IMPRESSION: 1. Previous right frontal craniotomy 2. Calcified atherosclerotic plaque in the cavernous segments of the internal carotid arteries bilaterally 3. White matter abnormality most consistent with small vessel ischemic change 4. No intracranial hemorrhage. No acute abnormality. No interval change since 06/20/2018 The exam was performed using radiation dose optimization techniques including, but not limited to, automated exposure control, adjustment of the mA and/or kV according to patient size and use of iterative reconstruction technique. Interpreted and Authenticated by: Rocky Arreola 09/08/18
[2018-09-08 15:01] LABS: Basophils # (Auto) 0 K/mcL (0.0-0.3); Basophils % (Auto) 0.5 % (0.0-2.0); Eosinophils # (Auto) 0.1 K/mcL (0.0-0.7); Eosinophils % (Auto) 2.4 % (0.0-7.0); Granulocytes % (Auto) 51.9 % (38.0-78.0); Lymphocytes # (Auto) 1.8 K/mcL (1.5-4.8); Lymphocytes % (Auto) 33.3 % (15.5-49.0); Mean Cell Volume 87.5 fL (80.0-100.0); Mean Corpuscular HGB Conc 33.6 g/dL (31.0-36.0); Monocytes # (Auto) 0.7 K/mcL (0.1-0.9); Monocytes % (Auto) 11.9 % (1.0-12.0); Platelet Count 293 K/mcL (140-440); Red Cell Distribution Width 12.6 % (11.5-14.5)
[2018-09-08 15:25] LABS: ALT/SGPT 15 U/l (0-40); Albumin 4.8 gm/dL (3.2-5.2); Albumin/Globulin Ratio 1.5 (1.0-2.3); Alkaline Phosphatase 54 U/L (39-117); Blood Urea Nitrogen 16 mg/dl (8-23)
--- NOTE | 2018-09-08 16:27 | Magnetic Resonance Report ---
CLINICAL INFORMATION: Stroke evaluation TECHNIQUE: Limited brain MRI scan. Sagittal T1-weighted images. Axial FLAIR and diffusion-weighted images COMPARISON: Brain CT scan dated 09/08/2018. MRI dated 06/20/2018 FINDINGS: There is susceptibility due to previous right frontal craniotomy. No restricted diffusion. No evidence for acute infarction. Brain parenchyma deep to the craniotomy site is not well evaluated There is extensive white matter abnormality with multiple foci of increased signal intensity in the white matter of both cerebral hemispheres. Findings are nonspecific but consistent with small vessel ischemic change. Findings are not changed since 06/20/2018. White matter abnormality is advanced for age. Clinical correlation for history of hypertension or diabetes recommended. There is white matter abnormality in the elsie. This is also stable and consistent with small vessel ischemic change. No extra-axial, intracranial abnormality. Normal flow void within vessels at the base of the brain No new abnormalities. No interval change. IMPRESSION: 1. No restricted diffusion. No acute infarction 2. Susceptibility related to previous right frontal craniotomy 3. White matter abnormality is unchanged since 06/20/2018. Findings are advanced for age. See above discussion. Interpreted and Authenticated by: Rocky Arreola 09/08/18
[2018-09-08 16:30] LABS: Appearance,Urine CLEAR; Bacteria,Urine FEW /hpf (0); Bilirubin,Urine NEG (NEG); Color,Urine AMBER; Glucose,Urine (UA) NEGATIVE (NEG); Leukocyte Esterase,Urine 250 /uL (NEG); Mucus,Urine FEW /hpf (0); Protein,Urine NEG (NEG); Specific Gravity,Urine 1.008 (1.000-1.035); Urine Blood NEG mg/dL (<0.03); Urine RBC 2 /hpf (0-1); Urine Squamous Epithelial Cell 1 /hpf (0-4); Urine WBC 86 /hpf (0-4)
--- NOTE | 2018-09-08 17:27 | Emergency Department Note ---
Neuro HPI - General Chief Complaint: Stroke Symptoms Stated Complaint: Left sided lip numbness Time Seen by Provider: 09/08/18 14:42 Source: patient Mode of arrival: ambulatory Limitations: no limitations - History of Present Illness HPI Narrative: This 78-year-old female comes the emergency room with some symptoms for a few days of confusion and feeling like her speech was slurring. She has had some low-grade minor amounts of numbness in her lips on the left side and her left arm but this morning around 6 AM she awoke and that was specifically different. At 3 AM when she got up to go to the bathroom she did not have this increase in the symptoms. She has a history of a stroke back in May and is on clopidogrel. REVIEW OF SYSTEMS: No fevers, chills, sweats. No chest pain. Has occasional palpitations of her heart beating irregularly or fast off and on but she relates this to anxiety. Feels some shortness of breath at times but she attributes this to her anxiety. Has occasional nausea but no vomiting. Has some burning after urination and some frequency. Evaluation indicates that there was not an infection and she has a near future follow-up with Dr. Rocha for trying to identify the cause of her symptoms. This is in 2 days. Has some chronic weakness. Has felt dizzy today. She is in physical therapy to try to strengthen her legs but describes some imbalance. She is not certain of her thyroid has been tested in the past. Her diabetes has been in good control. She has a history of mitral valve prolapse or something similar of the mitral valve. Has chronic anxiety for which she recently was on sertraline but it was causing some dark thoughts and she could not sleep i.e. hardly at all and so she recently stopped this just yesterday. She took 1 dose of lorazepam yesterday. They were trying to get her off of this as well. On Anticoagulants: Yes (Plavix) - Related Data Home Medications: Home Medications Medication Instructions Recorded Confirmed coenzyme Q10 30 mg capsule 30 mg PO QDAY cap 03/30/15 08/26/18 alpha lipoic acid 300 mg capsule 300 mg PO QDAY 07/31/16 08/26/18 calcium carbonate 500 mg calcium 500 mg PO BID 07/31/16 08/26/18 (1,250 mg) tablet acetaminophen ER 650 mg 650 mg PO ONCE PRN 07/01/17 08/26/18 tablet,extended release Previous Rx's Medication Instructions Recorded ascorbic acid (vitamin C) 500 mg 500 mg PO QDAY #1 tab 12/10/16 tablet ferrous sulfate 325 mg (65 mg 325 mg PO QDAY #1 tab 12/10/16 iron) tablet metformin 500 mg tablet 250 mg PO QDAY #45 tab 10/02/17 pantoprazole 40 mg tablet,delayed 40 mg PO QDAY #90 tab 06/23/18 release carvedilol 6.25 mg tablet 6.25 mg PO BID #180 tab 07/09/18 clopidogrel 75 mg tablet 75 mg PO DAILY #30 tab 07/09/18 fenofibrate nanocrystallized 145 145 mg PO DAILY #90 tab 07/09/18 mg tablet lorazepam 0.5 mg tablet 0.5 mg PO QID PRN #120 tab 08/05/18 acetaminophen 300 mg-codeine 30 mg 1 tab PO QID PRN #120 tab 08/12/18 tablet sertraline 25 mg tablet 25 mg PO QDAY #90 tab 08/26/18 valsartan 160 mg tablet 160 mg PO QDAY #90 tab 08/26/18 Allergies/Adverse Reactions: Allergies Allergy/AdvReac Type Severity Reaction Status Date / Time fluvastatin [From Lescol] Allergy Severe Weakness Verified 09/08/18 15:44 quetiapine [From Seroquel] Allergy Severe Hallucinati Verified 09/08/18 15:44 ng meperidine [From Demerol] Allergy Intermediate Depression Verified 09/08/18 15:44 Moexipril [From Univasc] Allergy Intermediate Unknown Verified 09/08/18 15:44 morphine Allergy Intermediate Depression Verified 09/08/18 15:44 rofecoxib [From Vioxx] Allergy Intermediate Other Verified 09/08/18 15:44 rosuvastatin [From Crestor] Allergy Intermediate Weakness Verified 09/08/18 15:44 simvastatin [From Vytorin] Allergy Intermediate Weakness Verified 09/08/18 15:44 Jilvyza-Aph-Dnj Reductase Allergy Intermediate Weakness Verified 09/08/18 15:44 Inhibitor Sulfa (Sulfonamide Allergy Intermediate Itching Verified 09/08/18 15:44 Antibiotics) topiramate [From Topamax] Allergy Intermediate Unknown Verified 09/08/18 15:44 pregabalin [From Lyrica] AdvReac Severe Confusion Verified 09/08/18 15:44 tramadol AdvReac Intermediate Confusion Verified 09/08/18 15:44 ezetimibe [From Vytorin] AdvReac Mild Dark urine Verified 09/08/18 15:44 Past Medical History - Past Medical History [facility], LAT[facility] Narrative: Medical History (Last Updated 09/06/18 @ 20:26 by Isma Alonso MD) Urinary tract infection (Resolved) Right thalamic infarction (Chronic) CVA (cerebral vascular accident) (Chronic) Stress (Chronic) Depression (Chronic) MVP (mitral valve prolapse) (Chronic) Pectus excavatum (Chronic) Costochondritis (Chronic) FH: heart disease (Chronic) MCGEE (dyspnea on exertion) (Resolved) Exertional chest pain (Resolved) Environmental allergies (Chronic) Chronic headaches (Chronic) History of recurrent UTIs (Chronic) Dysuria (Resolved) GERD (gastroesophageal reflux disease) (Chronic) Steroid-induced hyperglycemia (Chronic) Peptic ulcer disease (Chronic) Hypercholesterolemia (Chronic) Cervicalgia (Chronic) Occipital neuralgia (Chronic) Abnormality of gait (Chronic) Insomnia (Chronic) Neck pain (Chronic) Gastric ulcer (Chronic) Lightheadedness (Chronic) Hx SBO (Chronic) Small bowel obstruction (Resolved) Ischial bursitis (Chronic) Inguinal pain (Chronic) Metabolic Syndrome X (Chronic) 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) Cataract of both eyes (Chronic) Drug-induced myopathy (Chronic) Hyponatremia (Resolved) Calcific tendinitis of left forearm (Chronic) Carpal tunnel syndrome, unspecified upper limb (Chronic) Trigger finger, left middle finger (Chronic) Monoclonal gammopathy (Chronic) Cervical disc disorder, unspecified, mid-cervical region (Chronic) Primary generalized (osteo)arthritis (Chronic) Other nonthrombocytopenic purpura (Chronic) Dysphagia (Chronic) Cough (Chronic) Diabetes mellitus type 2 in nonobese (Chronic) Hypertension (Chronic) Neuralgia and neuritis (Chronic) Myopathy (Chronic) Muscle weakness (generalized) (Chronic) Monoclonal paraproteinemia (Chronic) Dysmetabolic syndrome X (Chronic) bed rubber current use of non-steroidal anti-inflammatories (NSAID) (Resolved) Hypertension, essential (Chronic) Hyperlipidemia (Chronic) Headache (Chronic) Degenerative disc disease (Chronic) Cyst (Resolved) Cerebral aneurysm, nonruptured (Chronic) Late effects of accidental fall (Resolved) Diabetes mellitus, type II (Chronic) Degenerative joint disease (Chronic) Basal cell carcinoma (Resolved) Arteritis (Chronic) Anxiety (Chronic) Paresthesia (Acute) Polymyalgia rheumatica (Chronic) Anemia (Chronic) Tenosynovitis of finger, hand, or wrist (Resolved) Urinary tract infection (Resolved) Actinic keratosis (Resolved) Past Surgical History (Last Reviewed 08/26/18 @ 14:50 by Isma Alonso MD) History of exploratory laparotomy (Resolved) History of repair of rotator cuff (Resolved) Status post VALERI-BSO (Resolved) History of esophagogastroduodenoscopy (Resolved 06/12/11) History of craniotomy (Resolved) History of colonoscopy (Resolved 05/10/11) History of carpal tunnel release (Resolved) History of (Resolved) History of biopsy (Resolved 04/20/14) History of appendectomy (Resolved ~1968) History of rotator cuff surgery (Resolved ~1990) Family History (Last Reviewed 08/26/18 @ 14:50 by Isma Alonso MD) Unknown Asthma Family history of malignant neoplasm Mother Congestive heart failure Diabetes mellitus Esophageal varices Father Cardiac disease CAD (coronary artery disease) Stroke Family/Other Diabetes mellitus Cancer Family/Other Cancer Other Kidney stone Medical history: Reports: arthritis, hypertension, osteoporosis, other Psychiatric history: Denies: anxiety, depression Surgical history ED: Reports: other (status post craniotomy, aneurysm repair in the 70s.) - Social History smoking status: Never smoker Alcohol use: Reports: None Drug use: Reports: none Physical Exam Limitations: no limitations General appearance: alert, anxious, in no apparent distress Head: atraumatic, normocephalic Eye: Present: normal appearance, PERRL, EOMI. Absent: scleral icterus, conjunctival injection ENT: normal oropharynx, mucous membranes moist Neck: Present: trachea midline. Absent: lymphadenopathy, thyromegaly Chest: Present: symmetric chest wall rise Respiratory: Present: normal lung sounds bilaterally. Absent: respiratory distress, wheezes, stridor, accessory muscle use, prolonged expiratory phase Cardiovascular: Present: regular rate, normal rhythm. Absent: systolic murmur, diastolic murmur Abdominal: Present: soft. Absent: distention, tenderness, guarding, rebound, rigidity, organomegaly, mass Extremities: Absent: pedal edema, pretibial edema, calf tenderness Back: Absent: CVA tenderness (R), CVA tenderness (L), spinous process tenderness Neurological: Present: alert, oriented X3 Psychiatric: Present: normal affect, normal mood, anxious (Mildly) Skin: Present: warm, dry Course Vital Signs Temperature 98.3 F 09/08/18 14:21 Pulse Rate 73 09/08/18 14:21 Respiratory Rate 22 09/08/18 14:21 Blood Pressure 175/85 09/08/18 14:21 Pulse Oximetry (%) 94 09/08/18 14:21 Temperature 98.3 F 09/08/18 14:21 Pulse Rate 73 09/08/18 15:16 Respiratory Rate 22 09/08/18 15:16 Blood Pressure 175/85 09/08/18 15:16 Pulse Oximetry (%) 94 09/08/18 15:16 Neuro Symptoms/Deficit - MDM Narrative Medical decision making narrative: With patient's history and with her symptoms, code stroke was initiated with a CT scan of her head being negative. I discussed with a neuroradiologist her circumstances, Dr.John Funes, via the [facility]-stroke system, around 3:46 PM. After reviewing her presentation he indicates that there is no TPA benefit. Doing CTA of the head neck is unreasonable since her symptoms include an NIH score of 0 and she had CTA of her neck in May. He recommended an MRI. This was done with the diffusion-weighted images which was negative. She had no atrial fibrillation. I discussed her situation and circumstances with hospitalist after discussing with the patient. She has an ABCD score of 5 due to her age greater than 60, diabetes, blood pressure over 140, and so monitoring is reasonable. However she has had previous workup and now this workup so there is limited interventions yet to be done. She is already on clopidogrel. Could be clarified if she is also taking aspirin. And whether or not she would tolerate a statin. After discussing the circumstances with Dr. Espinoza he kindly accepts patient for admission under an observation status. - Lab Data Lab results reviewed: Yes I reviewed the patient's lab results. Result diagrams: 09/08/18 14:31 09/08/18 14:31 Lab Results 09/08/18 09/08/18 09/08/18 Range/Units 14:31 14:31 14:31 WBC 5.5 (4.5-11.0) K/mcL RBC 4.00 (4.00-5.20) M/mcL Hgb 11.8 L (12.0-15.0) g/dL Hct 35.0 L (36.0-48.0) % POC Hct 38.0 (36.0-48.0) % MCV 87.5 (80.0-100.0) fL MCH 29.4 (26.0-34.0) pg MCHC 33.6 (31.0-36.0) g/dL RDW 12.6 (11.5-14.5) % Plt Count 293 (140-440) K/mcL MPV 7.9 (7.4-10.4) fL Gran % 51.9 (38.0-78.0) % Lymph % (Auto) 33.3 (15.5-49.0) % [place] % (Auto) 11.9 (1.0-12.0) % Eos % (Auto) 2.4 (0.0-7.0) % Baso % (Auto) 0.5 (0.0-2.0) % Gran # 2.9 (1.8-8.0) K/mcL Lymph # (Auto) 1.8 (1.5-4.8) K/mcL [place] # (Auto) 0.7 (0.1-0.9) K/mcL Eos # (Auto) 0.1 (0.0-0.7) K/mcL Baso # (Auto) 0 (0.0-0.3) K/mcL POC PT 11.0 L (11.9-14.5) sec POC INR 0.9 (0.9-1.2) APTT TNP POC Sodium 129 L (133-145) mmol/L Sodium 128 L (133-145) mmol/L POC Potassium 3.8 (3.3-5.1) mmol/L Potassium 3.8 (3.3-5.1) mmol/L POC Chloride 93 L (96-108) mmol/L Chloride 92 L (96-108) mmol/L Carbon Dioxide 24 (22-30) mmol/L POC Total CO2 23 (22-30) mmol/L Anion Gap 12.0 (8-16) POC BUN 17 (8-23) mg/dl BUN 16 (8-23) mg/dl Creatinine 0.9 (0.6-1.1) mg/dl POC Creatinine 0.8 (0.6-1.1) mg/dl GFR Calculation 62 Glucose 155 H (70-105) mg/dL POC Glucose 155 H (70-105) mg/dL Calcium 9.5 (8.6-10.4) mg/dl POC WB Ioniz Calcium 1.13 L (1.16-1.32) mmol/L Total Bilirubin 0.2 (0.0-1.0) mg/dL AST 24 (0-37) U/l ALT 15 (0-40) U/l Alkaline Phosphatase 54 (39-117) U/L Troponin T (0-0.03) ng/ml Total Protein 7.9 (5.9-8.4) gm/dL Albumin 4.8 (3.2-5.2) gm/dL Globulin 3.1 (2.2-3.7) gm/dL Albumin/Globulin Ratio 1.5 (1.0-2.3) Urine Color Urine Appearance Urine pH (5.0-9.0) Ur Specific [place] (1.000-1.035) Urine Protein (NEG) mg/dL Urine Glucose (UA) (NEG) mg/dL Urine Ketones (NEG) mg/dL Urine Occult Blood (<0.03) mg/dL Urine Nitrate (NEG) Urine Bilirubin (NEG) mg/dL Urine Urobilinogen (NEG) mg/dL Ur Leukocyte Esterase (NEG) /uL Urine RBC (0-1) /hpf Urine WBC (0-4) /hpf Ur Squamous Epith Cells (0-4) /hpf Urine Bacteria (0) /hpf Urine Mucus (0) /hpf Ur Culture Indicated? 09/08/18 09/08/18 09/08/18 Range/Units 14:31 15:13 15:58 WBC (4.5-11.0) K/mcL RBC (4.00-5.20) M/mcL Hgb (12.0-15.0) g/dL Hct (36.0-48.0) % POC Hct (36.0-48.0) % MCV (80.0-100.0) fL MCH (26.0-34.0) pg MCHC (31.0-36.0) g/dL RDW (11.5-14.5) % Plt Count (140-440) K/mcL MPV (7.4-10.4) fL Gran % (38.0-78.0) % Lymph % (Auto) (15.5-49.0) % [place] % (Auto) (1.0-12.0) % Eos % (Auto) (0.0-7.0) % Baso % (Auto) (0.0-2.0) % Gran # (1.8-8.0) K/mcL Lymph # (Auto) (1.5-4.8) K/mcL [place] # (Auto) (0.1-0.9) K/mcL Eos # (Auto) (0.0-0.7) K/mcL Baso # (Auto) (0.0-0.3) K/mcL POC PT (11.9-14.5) sec POC INR (0.9-1.2) APTT 29 POC Sodium (133-145) mmol/L Sodium (133-145) mmol/L POC Potassium (3.3-5.1) mmol/L Potassium (3.3-5.1) mmol/L POC Chloride (96-108) mmol/L Chloride (96-108) mmol/L Carbon Dioxide (22-30) mmol/L POC Total CO2 (22-30) mmol/L Anion Gap (8-16) POC BUN (8-23) mg/dl BUN (8-23) mg/dl Creatinine (0.6-1.1) mg/dl POC Creatinine (0.6-1.1) mg/dl GFR Calculation Glucose (70-105) mg/dL POC Glucose (70-105) mg/dL Calcium (8.6-10.4) mg/dl POC WB Ioniz Calcium (1.16-1.32) mmol/L Total Bilirubin (0.0-1.0) mg/dL AST (0-37) U/l ALT (0-40) U/l Alkaline Phosphatase (39-117) U/L Troponin T < 0.01 (0-0.03) ng/ml Total Protein (5.9-8.4) gm/dL Albumin (3.2-5.2) gm/dL Globulin (2.2-3.7) gm/dL Albumin/Globulin Ratio (1.0-2.3) Urine Color Anh Urine Appearance Clear Urine pH 7.0 (5.0-9.0) Ur Specific [place] 1.008 (1.000-1.035) Urine Protein Neg (NEG) mg/dL Urine Glucose (UA) Negative (NEG) mg/dL Urine Ketones Neg (NEG) mg/dL Urine Occult Blood Neg (<0.03) mg/dL Urine Nitrate Pos A (NEG) Urine Bilirubin Neg (NEG) mg/dL Urine Urobilinogen 4.0 A (NEG) mg/dL Ur Leukocyte Esterase 250 A (NEG) /uL Urine RBC 2 H (0-1) /hpf Urine WBC 86 H (0-4) /hpf Ur Squamous Epith Cells 1 (0-4) /hpf Urine Bacteria Few A (0) /hpf Urine Mucus Few (0) /hpf Ur Culture Indicated? Yes - Radiology Data Radiology results reviewed: Yes I reviewed the patient's radiology results. - EKG Data EKG results narrative: No acute EKG changes. This EKG will be read by a gasoline catalyst operator. Disposition Pt seen by TEAM ASSEMBLER/PA only: No Clinical Impression: Facial paresthesia, Paresthesia of left arm, History of CVA (cerebrovascular accident), History of craniotomy, Nocturia, Hyponatremia Diabetes mellitus type 2, controlled Qualifiers: Diabetes mellitus shelter insulin use: without logging tractor operator swamp use Diabetes mellitus complication status: without complication Qualified Code(s): E11.9 - Type 2 diabetes mellitus without complications Anemia Qualifiers: Anemia type: unspecified type Qualified Code(s): D64.9 - Anemia, unspecified Disposition: Xfer As Outpt/Obs ([facility]) Referrals: Isma Alonso MD [Primary Care Provider] -
--- NOTE | 2018-09-08 17:48 | Internal Med History&Physical ---
Medical - H&P: HPI Patient information: Note initiated : 09/08/18 at 5:43 pm Service Date, if different from initiated Date: [] Patient: Deepthi Giang a 78 y/o F admitted on for Left sided lip numbness. Chief Complaint: [] Chief complaint: Left-sided numbness/slurring and confusion History of present illness: Ms. Giang is a 78 year old F with recent history of CVA currently on Plavix pr esents with left-sided numbness, weakness, slurred speech that started around 6 this morning. Patient symptoms were initially waxing and waning however after the symptoms persisted for over 8 hours she presented to the ER along with her . Initial workup included tele stroke neuro consultation/CT head/MRI brain. Initial NIH score 1. Significant pyuria on UA/sodium 128. No evidence of acute events on CT/MRI brain. No further recommendation from neurology. Hospitalist service requested for admission for observation. Symptoms have clearly improved since admission Patient denies diarrhea, shortness of breath, fever, chills, thunderclap headache. She denies double vision/seizure episode. She was last known normal the night before. Review of systems 10 point review of system was performed and is negative except was discussed above Medical - H&P: PMH Medical history: Stress (Chronic) Improved Depression (Chronic) MVP (mitral valve prolapse) (Chronic) Mild posterior leaflet prolapse Pectus excavatum (Chronic) Costochondritis (Chronic) FH: heart disease (Chronic) Both parents MCGEE (dyspnea on exertion) (Resolved) Exertional chest pain (Resolved) Environmental allergies (Chronic) Chronic headaches (Chronic) Right parietal and occipital History of recurrent UTIs (Chronic) GERD (gastroesophageal reflux disease) (Chronic) Steroid-induced hyperglycemia (Chronic) Peptic ulcer disease (Chronic) Hypercholesterolemia (Chronic) Cervicalgia (Chronic) Occipital neuralgia (Chronic) H/O Abnormality of gait (Chronic) Insomnia (Chronic) Often stress related Neck pain (Chronic) Posterior Gastric ulcer (Chronic) H/O Lightheadedness (Chronic) intermittent Hx SBO (Chronic) Multiple surgeries. 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) Cataract of both eyes (Chronic) Drug-induced myopathy (Chronic) Hyponatremia (Resolved) H/O Calcific tendinitis of left forearm (Chronic) Carpal tunnel syndrome, unspecified upper limb (Chronic) Trigger finger, left middle finger (Chronic) Monoclonal gammopathy (Chronic) Cervical disc disorder, unspecified, mid-cervical region (Chronic) Primary generalized (osteo)arthritis (Chronic) Other nonthrombocytopenic purpura (Chronic) Dysphagia (Chronic) Cough (Chronic) Diabetes mellitus type 2 in nonobese (Chronic) Hypertension (Chronic) Neuralgia and neuritis (Chronic) Greater occipital neuritis Myopathy (Chronic) (04/08/14-[facility]) Muscle weakness (generalized) (Chronic) (02/10/14 Dr Perez) Monoclonal paraproteinemia (Chronic) (02/10/14 Dr Perez) 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 Perineal paresthesias. Diabetes mellitus, type II (Chronic) Degenerative joint disease (Chronic) chronic low back pain secondary to DJD. osteoarthritis of neck. Basal cell carcinoma (Resolved) hx of right posterior thigh Arteritis (Chronic) (02/10/14 Dr Perez) Anxiety (Chronic) Paresthesia (Acute) Left side of body and face Polymyalgia rheumatica (Chronic) H/O Anemia (Chronic) H/O Tenosynovitis of finger, hand, or wrist (Resolved) right Urinary tract infection (Resolved) recurrent Actinic keratosis (Resolved) Surgical History History of exploratory laparotomy (Resolved) 1989*for bowel obstruction History of repair of rotator cuff (Resolved) Status post VALERI-BSO (Resolved) History of esophagogastroduodenoscopy (Resolved 06/12/11) gastritis. 08/23/15 mild gastritis and Schatzki ring dilated. History of craniotomy (Resolved) History of colonoscopy (Resolved 05/10/11) 05/10/11 HP. 04/17/17 WNL. History of carpal tunnel release (Resolved) left History of (Resolved) History of biopsy (Resolved 04/20/14) skeletal left thigh History of appendectomy (Resolved ~1968) History of rotator cuff surgery (Resolved ~1990) Family History Unknown Asthma Family history of malignant neoplasm Mother Congestive heart failure Diabetes mellitus severe Esophageal varices Father , [id number] dying of coronary artery disease and stroke Cardiac disease CAD (coronary artery disease) Stroke Family/Other , 28-year-old sibling dying of cancer Diabetes mellitus Sibling Cancer Family/Other Cancer Other Kidney stone Social History household members: spouse housing: house lives independently: Yes marital status: education level: college occupational status: retired pets and animals: Yes leisure activities: reading other: 2 sons and 1 daugter numerous grandchildren well-balanced diet: daily or most days eating out: rarely or never physical activity: walking frequency: 3-4 times per week smoking status: Never smoker alcohol intake frequency: does not drink substance use type: does not use domo/confucianism: Jainism Medical - H&P: Meds Home Medications Medication Instructions Recorded Confirmed Type coenzyme Q10 30 mg capsule 30 mg PO QDAY cap 03/30/15 09/08/18 History alpha lipoic acid 300 mg capsule 300 mg PO QDAY 07/31/16 09/08/18 History calcium carbonate 500 mg calcium 500 mg PO BID 07/31/16 09/08/18 History (1,250 mg) tablet ascorbic acid (vitamin C) 500 mg 500 mg PO QDAY #1 tab 12/10/16 09/08/18 Rx tablet ferrous sulfate 325 mg (65 mg 325 mg PO QDAY #1 tab 12/10/16 09/08/18 Rx iron) tablet acetaminophen ER 650 mg 650 mg PO ONCE PRN 07/01/17 09/08/18 History tablet,extended release metformin 500 mg tablet 250 mg PO QDAY #45 tab 10/02/17 09/08/18 Rx pantoprazole 40 mg tablet,delayed 40 mg PO QDAY #90 tab 06/23/18 09/08/18 Rx release carvedilol 6.25 mg tablet 6.25 mg PO BID #180 tab 07/09/18 09/08/18 Rx clopidogrel 75 mg tablet 75 mg PO DAILY #30 tab 07/09/18 09/08/18 Rx fenofibrate nanocrystallized 145 145 mg PO DAILY #90 tab 07/09/18 09/08/18 Rx mg tablet acetaminophen 300 mg-codeine 30 mg 1 tab PO QID PRN #120 tab 08/12/18 09/08/18 Rx tablet valsartan 160 mg tablet 160 mg PO QDAY #90 tab 08/26/18 09/08/18 Rx Allergies Allergy/AdvReac Type Severity Reaction Status Date / Time fluvastatin [From Lescol] Allergy Severe Weakness Verified 09/08/18 15:44 quetiapine [From Seroquel] Allergy Severe Hallucinati Verified 09/08/18 15:44 ng meperidine [From Demerol] Allergy Intermediate Depression Verified 09/08/18 15:44 Moexipril [From Univasc] Allergy Intermediate Unknown Verified 09/08/18 15:44 morphine Allergy Intermediate Depression Verified 09/08/18 15:44 rofecoxib [From Vioxx] Allergy Intermediate Other Verified 09/08/18 15:44 rosuvastatin [From Crestor] Allergy Intermediate Weakness Verified 09/08/18 15:44 simvastatin [From Vytorin] Allergy Intermediate Weakness Verified 09/08/18 15:44 [id number]-Bqg-Bon Reductase Allergy Intermediate Weakness Verified 09/08/18 15:44 Inhibitor Sulfa (Sulfonamide Allergy Intermediate Itching Verified 09/08/18 15:44 Antibiotics) topiramate [From Topamax] Allergy Intermediate Unknown Verified 09/08/18 15:44 pregabalin [From Lyrica] AdvReac Severe Confusion Verified 09/08/18 15:44 tramadol AdvReac Intermediate Confusion Verified 09/08/18 15:44 ezetimibe [From Vytorin] AdvReac Mild Dark urine Verified 09/08/18 15:44 Medical - H&P: Exam - Constitutional Vitals: Temp Pulse Resp BP Pulse Ox 98.3 F 73 22 175/85 94 09/08/18 14:21 09/08/18 15:16 09/08/18 15:16 09/08/18 15:16 09/08/18 15:16 General appearance: no acute distress Exam: Alert Head normocephalic Eye movement symmetrical Oral cavity dry No ear nose discharge Head normocephalic Neck no lymphadenopathy S1-S2 regular rhythm no murmur appreciated Diminished breath sounds bases abdomen soft Lower extremity cyanosis clubbing no joint swelling or erythema Skin no suspicious lesion Psych alert cooperative Neuro normal heart function No cranial nerves deficit Slightly altered sensation left upper and lower extremity Strength and tone symmetric Medical - H&P: Reslt - Labs CBC & Chem 7: 09/08/18 14:31 09/08/18 14:31 Labs: Short CBC 09/08/18 Range/Units 14:31 WBC 5.5 (4.5-11.0) K/mcL Hgb 11.8 L (12.0-15.0) g/dL Hct 35.0 L (36.0-48.0) % Plt Count 293 (140-440) K/mcL BMP 09/08/18 14:31 Sodium 128 L Potassium 3.8 Chloride 92 L Carbon Dioxide 24 BUN 16 Creatinine 0.9 Glucose 155 H Calcium 9.5 Cardiac Enzymes 09/08/18 Range/Units 14:31 Troponin T < 0.01 (0-0.03) ng/ml Liver Function 09/08/18 Range/Units 14:31 Total Bilirubin 0.2 (0.0-1.0) mg/dL AST 24 (0-37) U/l ALT 15 (0-40) U/l Alkaline Phosphatase 54 (39-117) U/L Albumin 4.8 (3.2-5.2) gm/dL Urine 09/08/18 Range/Units 15:58 Urine Color Anh Urine Appearance Clear Urine pH 7.0 (5.0-9.0) Ur Specific [place] 1.008 (1.000-1.035) Urine Protein Neg (NEG) mg/dL Urine Glucose (UA) Negative (NEG) mg/dL Medical - H&P: A/P (1) History of CVA (cerebrovascular accident) Current visit: Yes Status: Acute * TIA vs Acute Stroke- -CT head and MRI negative , ECHO 06/19- Small VSD, Nl EF, NSR. On fibrate or Plavix. Tele admit for observation, Neurochecks, aggressive bowel protocol, PT OT/ST eval * Complicated UTI-await cultures. Start Rocephin. * H/o HTN restart Coreg/ARB * HLD- Not on Statin due to stain induced myopathy. On fenofibrate * DM-continue sliding scale insulin/metformin * History of chronic pain continue home meds * GERD on PPI * Full code * Prophylaxis heparin Plan * Observation admit * Neurochecks/continue Plavix, PT OT/bowel protocol/close neurologic monitoring * Antibiotic coverage * Pre-existing medical condition management as above Medical - H&P: Qual - Stroke Onset of Symptoms Date: 09/08/18 Onset of Symptoms Time: 03:00 Symptom Onset Unknown: No
[2018-09-08] MEDS ORDERED: ONDANSETRON 4 MG/2 ML VIAL IV PRN (18:08)
[2018-09-08] MEDS ORDERED: ACETAMINOPHEN 325 MG TABLET PO PRN (18:08)
[2018-09-08] MEDS ORDERED: BISACODYL 10 MG SUPP.RECT PR PRN (18:08)
[2018-09-08] MEDS ORDERED: POTASSIUM CHLORIDE 20 MEQ PACKET PO PRN (18:08)
[2018-09-08] MEDS ORDERED: ACETAMINOPHEN 1,000 MG/100 ML BOTTLE IV PRN (18:08)
[2018-09-08] MEDS ORDERED: MAGNESIUM SULFATE 2 GM/50 ML BAG IV PRN (18:08)
[2018-09-08] MEDS ORDERED: hydrALAZINE 20 MG/ML VIAL IV PRN (18:54)
[2018-09-08] MEDS: cefTRIAXone 2 GM in DEXTROSE 5% IN WATER 50 ML IV SCH (19:20)
[2018-09-08] MEDS: CARVEDILOL 3.125 MG TABLET PO SCH (19:39)
[2018-09-08] MEDS: ACETAMINOPHEN W/CODEINE #3 1 TABLET PO PRN (19:44)
[2018-09-08] MEDS: HEPARIN 5,000 UNIT/ML VIAL SQ SCH (19:45)
[2018-09-08] MEDS: DOCUSATE SODIUM 100 MG CAPSULE PO SCH (19:52)
[2018-09-08] MEDS ORDERED: SENNOSIDES/DOCUSATE SODIUM 1 TAB TABLET PO SCH (21:00)
[2018-09-08] MEDS: 0.9 % SODIUM CHLORIDE 10 ML SYRINGE IV SCH (22:00)
[2018-09-09] MEDS: ACETAMINOPHEN W/CODEINE #3 1 TABLET PO PRN ×2 (01:54→09:51)
[2018-09-09] MEDS: 0.9 % SODIUM CHLORIDE 10 ML SYRINGE IV SCH (05:32)
[2018-09-09 06:21] LABS: Mean Cell Volume 88.8 fL (80.0-100.0); Mean Corpuscular HGB Conc 33.3 g/dL (31.0-36.0); Platelet Count 278 K/mcL (140-440); RBC 3.93 M/mcL (4.00-5.20); Red Cell Distribution Width 12.7 % (11.5-14.5)
[2018-09-09 06:58] LABS: ALT/SGPT 13 U/l (0-40); Albumin 4.4 gm/dL (3.2-5.2); Albumin/Globulin Ratio 1.5 (1.0-2.3); Alkaline Phosphatase 52 U/L (39-117); Bilirubin,Direct < 0.2 mg/dL (0.0-0.3); Blood Urea Nitrogen 12 mg/dl (8-23); Gamma Glutamyl Transpeptidase 18 U/L (5-36); Uric Acid 2.2 mg/dL (2.5-8.0)
[2018-09-09 07:34] LABS: Basophils % (Manual) 1 % (0-2); Eosinophils % (Manual) 6 % (0-7); Lymphocytes % 43 % (15-49); Metamyelocytes % 1 % (0-0); Monocytes % (Manual) 8 % (1-12); Platelet Estimate NORMAL (NORMAL); RBC Morphology NORMAL (NORMAL); Segmented Neutrophils % 40 % (38-78)
[2018-09-09] MEDS ORDERED: metFORMIN 500 MG TABLET PO SCH (08:00)
[2018-09-09] MEDS: CARVEDILOL 3.125 MG TABLET PO SCH (08:22)
[2018-09-09] MEDS: DOCUSATE SODIUM 100 MG CAPSULE PO SCH (08:23)
[2018-09-09] MEDS: HEPARIN 5,000 UNIT/ML VIAL SQ SCH (08:24)
[2018-09-09] MEDS ORDERED: FENOFIBRATE 43 MG CAPSULE PO SCH (09:00)
[2018-09-09] MEDS ORDERED: LOSARTAN 50 MG TABLET PO SCH (09:00)
[2018-09-09] MEDS ORDERED: UBIDECARENONE 30 MG PO SCH (09:00)
[2018-09-09] MEDS ORDERED: MULTIVIT,THER IRON,CA,FA & MIN 1 TABLET PO SCH (09:00)
[2018-09-09] MEDS ORDERED: CLOPIDOGREL 75 MG TABLET PO SCH (09:00)
[2018-09-09] MEDS ORDERED: PANTOPRAZOLE 40 MG TABLET PO SCH (09:00)
[2018-09-09] MEDS ORDERED: FERROUS SULFATE 325 MG TABLET PO SCH (09:00)
[2018-09-09] MEDS ORDERED: VALSARTAN 160 MG TABLET PO SCH (09:00)
[2018-09-09] MEDS: cefTRIAXone 2 GM in DEXTROSE 5% IN WATER 50 ML IV SCH (09:13)
--- NOTE | 2018-09-09 10:30 | Discharge Summary ---
Medical - DS: Prov Patient information: Note initiated : 09/09/18 at 10:27 am Service Date, if different from initiated Date: [] Patient: Deepthi Giang 78 y/o F admitted on 09/08/18 for Left sided lip numbness. Chief Complaint: [] Date of admission: 09/08/18 18:01 Discharge date: 09/09/18 Primary care physician: Isma Alonso Consults: 09/08/18 17:04 Consult to Physician [CONS] Stat Comment: Consulting Provider: Augie Byrd Reason For Exam: Physician to Consult Medical - DS: Meds - Discharge Medications Prescriptions: Ciprofloxacin HCl [Cipro] 500 mg PO BID #10 tablet Active and Home Medications: Home Medications coenzyme Q10 30 mg capsule 30 mg PO QDAY cap 03/30/15 [History Confirmed 09/08/18 Last Taken 09/08/18 08:00] alpha lipoic acid 300 mg capsule 300 mg PO QDAY 07/31/16 [History Confirmed 09/08/18 Last Taken 09/08/18 08:00] calcium carbonate 500 mg calcium (1,250 mg) tablet 500 mg PO BID 07/31/16 [History Confirmed 09/08/18 Last Taken 09/08/18 08:00] ascorbic acid (vitamin C) 500 mg tablet 500 mg PO QDAY #1 tab 12/10/16 [Rx Confirmed 09/08/18 Last Taken 09/08/18 08:00] ferrous sulfate 325 mg (65 mg iron) tablet 325 mg PO QDAY #1 tab 12/10/16 [Rx Confirmed 09/08/18 Last Taken 09/08/18 08:00] metformin 500 mg tablet 250 mg PO QDAY #45 tab 10/02/17 [Rx Confirmed 09/08/18 Last Taken 09/08/18 08:00] pantoprazole 40 mg tablet,delayed release 40 mg PO QDAY #90 tab 06/23/18 [Rx Confirmed 09/08/18 Last Taken 09/08/18 08:00] carvedilol 6.25 mg tablet 6.25 mg PO BID #180 tab 07/09/18 [Rx Confirmed 9 Last Taken 09/08/18 08:00] clopidogrel 75 mg tablet 75 mg PO DAILY #30 tab 07/09/18 [Rx Confirmed 09/08/18 Last Taken 09/08/18 08:00] fenofibrate nanocrystallized 145 mg tablet 145 mg PO DAILY #90 tab 07/09/18 [Rx Confirmed 09/08/18 Last Taken 09/08/18 08:00] acetaminophen 300 mg-codeine 30 mg tablet 1 tab PO QID PRN #120 tab 08/12/18 [Rx Confirmed 09/08/18 Last Taken 09/08/18 14:00] valsartan 160 mg tablet 160 mg PO QDAY #90 tab 08/26/18 [Rx Confirmed 09/08/18 Last Taken 09/08/18 08:00] Ciprofloxacin HCl [Cipro] 500 mg PO BID #10 tablet 09/09/18 [Rx Last Taken Unknown] Medical - DS: Hosp Hospital course: Discharge diagnosis * TIA vs Acute Stroke- -CT head and MRI negative , ECHO 06/19- Small VSD, Nl EF, NSR. On fibrate or Plavix. No telemetry events. No further neuro changes. Discharging with advised to follow with PCP * Recurrent UTI-await cultures. Patient refused antibiotics unless cleared by urology office. Urology recommends initiation of antibiotics until cultures obtained. * H/o HTN continue Coreg/ARB * HLD- Not on Statin due to stain induced myopathy. On fenofibrate * DM-continue sliding scale insulin/metformin * History of chronic pain continue home meds * GERD on PPI Brief hospital course Ms. Giang is a 78 year old F with recent history of CVA currently on Plavix presents with left-sided numbness, weakness, slurred speech that started around 6 this morning. Patient symptoms were initially waxing and waning however after the symptoms persisted for over 8 hours she presented to the ER along with her . Initial workup included tele stroke neuro consultation/CT head/MRI brain. Initial NIH score 1. Significant pyuria on UA/sodium 128. No evidence of acute events on CT/MRI brain. No further recommendation from neurology. Hospitalist service requested for admission for observation. Symptoms have clearly improved since admission 09/09-patient doing well. No overnight events. Patient refused antibiotics until approved by urology. Case discussed with Dr. Rocha urology recommends discharging with antibiotics copy of urine cultures will need to be forwarded to urology office for antibiotics de-escalation. Discharge instructions as below Discharge diagnosis: . - Time Spent with Patient Total time spent providing and/or coordinating discharge services: Greater than 30 minutes Medical - DS: Exam - Constitutional Vitals: Vital Signs Temp Pulse Pulse Resp BP BP BP 09/09/18 07:34 98.0 F 67 16 09/09/18 04:00 98.9 F 16 09/09/18 00:00 98.2 F 16 166/94 09/08/18 18:15 98.2 F 78 22 180/97 09/08/18 18:09 98.3 F 71 12 174/81 09/08/18 18:05 98.2 F 22 180/97 09/08/18 17:48 71 12 09/08/18 17:45 73 10 L 174/81 09/08/18 17:31 78 10 L 149/76 09/08/18 17:16 71 9 L 190/86 09/08/18 17:02 68 14 194/78 09/08/18 16:45 75 15 139/115 09/08/18 16:30 66 9 L 153/77 09/08/18 16:28 66 7 L 151/82 09/08/18 15:46 67 11 L 163/78 09/08/18 15:31 66 12 175/82 09/08/18 15:16 73 22 175/85 09/08/18 15:01 72 17 176/99 09/08/18 14:52 173/89 09/08/18 14:21 98.3 F 73 22 175/85 BP Pulse Ox 09/09/18 07:34 141/71 96 09/09/18 04:00 117/67 93 09/09/18 00:00 96 09/08/18 18:15 94 09/08/18 18:09 95 09/08/18 18:05 94 09/08/18 17:48 95 09/08/18 17:45 95 09/08/18 17:31 94 09/08/18 17:16 96 09/08/18 17:02 92 09/08/18 16:45 93 09/08/18 16:30 92 09/08/18 16:28 92 09/08/18 15:46 94 09/08/18 15:31 93 09/08/18 15:16 94 09/08/18 15:01 94 09/08/18 14:52 09/08/18 14:21 94 Intake and Output 09/08/18 09/09/18 09/09/18 21:59 05:59 13:59 Intake Total 200 250 200 Output Total 300 550 300 Balance -100 -300 -100 Intake: Oral 200 250 200 Output: Void Amount 300 550 300 Other: Meal snack Percent of Meal Consumed 100% Urine Appearance Clear Clear Clear Urine Color [place] Bright Yellow Dark Yellow Urine Odor Normal Normal Stool Size Moderate Small Stool Color Brown Brown Stool Consistency Soft Formed # Voids 1 1 # Bowel Movements 1 1 Weight 106 lb Medical - DS: Data Labs on day of discharge: Labs from last 24 hours 09/09/18 09/09/18 09/08/18 03:40 03:40 15:58 WBC 5.1 RBC 3.93 L Hgb 11.6 L Hct 34.9 L POC Hct MCV 88.8 MCH 29.6 MCHC 33.3 RDW 12.7 Plt Count 278 MPV 8.0 Gran % Lymph % (Auto) Ogle % (Auto) Eos % (Auto) Baso % (Auto) Gran # Lymph # (Auto) Ogle # (Auto) Eos # (Auto) Baso # (Auto) Total Counted 100 Seg Neutrophils % 40 Band Neutrophils % Not Reportable Lymphocytes % 43 Monocytes % (Manual) 8 Eosinophils % (Manual) 6 Basophils % (Manual) 1 Metamyelocytes % 1 H Reactive Lymphocytes 1 Platelet Estimate Normal RBC Morphology Normal POC PT POC INR APTT POC Sodium Sodium 132 L POC Potassium Potassium 4.1 POC Chloride Chloride 96 Carbon Dioxide 23 POC Total CO2 Anion Gap 13.0 POC BUN BUN 12 Creatinine 0.8 POC Creatinine GFR Calculation 71 Glucose 117 H POC Glucose Uric Acid 2.2 L Calcium 9.6 POC WB Ioniz Calcium Phosphorus 3.6 Magnesium 2.3 Total Bilirubin 0.2 Direct Bilirubin < 0.2 GGT 18 AST 21 ALT 13 Alkaline Phosphatase 52 Lactate Dehydrogenase 196 Troponin T Total Protein 7.4 Albumin 4.4 Globulin 3.0 Albumin/Globulin Ratio 1.5 Triglycerides 118 Urine Color Anh Urine Appearance Clear Urine pH 7.0 Ur Specific [place] 1.008 Urine Protein Neg Urine Glucose (UA) Negative Urine Ketones Neg Urine Occult Blood Neg Urine Nitrate Pos A Urine Bilirubin Neg Urine Urobilinogen 4.0 A Ur Leukocyte Esterase 250 A Urine RBC 2 H Urine WBC 86 H Ur Squamous Epith Cells 1 Urine Bacteria Few A Urine Mucus Few Ur Culture Indicated? Yes 09/08/18 09/08/18 09/08/18 15:13 14:31 14:31 WBC RBC Hgb Hct POC Hct 38.0 MCV MCH MCHC RDW Plt Count MPV Gran % Lymph % (Auto) Ogle % (Auto) Eos % (Auto) Baso % (Auto) Gran # Lymph # (Auto) Ogle # (Auto) Eos # (Auto) Baso # (Auto) Total Counted Seg Neutrophils % Band Neutrophils % Lymphocytes % Monocytes % (Manual) Eosinophils % (Manual) Basophils % (Manual) Metamyelocytes % Reactive Lymphocytes Platelet Estimate RBC Morphology POC PT POC INR APTT 29 POC Sodium 129 L Sodium 128 L POC Potassium 3.8 Potassium 3.8 POC Chloride 93 L Chloride 92 L Carbon Dioxide 24 POC Total CO2 23 Anion Gap 12.0 POC BUN 17 BUN 16 Creatinine 0.9 POC Creatinine 0.8 GFR Calculation 62 Glucose 155 H POC Glucose 155 H Uric Acid Calcium 9.5 POC WB Ioniz Calcium 1.13 L Phosphorus Magnesium Total Bilirubin 0.2 Direct Bilirubin GGT AST 24 ALT 15 Alkaline Phosphatase 54 Lactate Dehydrogenase Troponin T < 0.01 Total Protein 7.9 Albumin 4.8 Globulin 3.1 Albumin/Globulin Ratio 1.5 Triglycerides Urine Color Urine Appearance Urine pH Ur Specific [place] Urine Protein Urine Glucose (UA) Urine Ketones Urine Occult Blood Urine Nitrate Urine Bilirubin Urine Urobilinogen Ur Leukocyte Esterase Urine RBC Urine WBC Ur Squamous Epith Cells Urine Bacteria Urine Mucus Ur Culture Indicated? 09/08/18 09/08/18 14:31 14:31 WBC 5.5 RBC 4.00 Hgb 11.8 L Hct 35.0 L POC Hct MCV 87.5 MCH 29.4 MCHC 33.6 RDW 12.6 Plt Count 293 MPV 7.9 Gran % 51.9 Lymph % (Auto) 33.3 Ogle % (Auto) 11.9 Eos % (Auto) 2.4 Baso % (Auto) 0.5 Gran # 2.9 Lymph # (Auto) 1.8 Ogle # (Auto) 0.7 Eos # (Auto) 0.1 Baso # (Auto) 0 Total Counted Seg Neutrophils % Band Neutrophils % Lymphocytes % Monocytes % (Manual) Eosinophils % (Manual) Basophils % (Manual) Metamyelocytes % Reactive Lymphocytes Platelet Estimate RBC Morphology POC PT 11.0 L POC INR 0.9 APTT TNP POC Sodium Sodium POC Potassium Potassium POC Chloride Chloride Carbon Dioxide POC Total CO2 Anion Gap POC BUN BUN Creatinine POC Creatinine GFR Calculation Glucose POC Glucose Uric Acid Calcium POC WB Ioniz Calcium Phosphorus Magnesium Total Bilirubin Direct Bilirubin GGT AST ALT Alkaline Phosphatase Lactate Dehydrogenase Troponin T Total Protein Albumin Globulin Albumin/Globulin Ratio Triglycerides Urine Color Urine Appearance Urine pH Ur Specific [place] Urine Protein Urine Glucose (UA) Urine Ketones Urine Occult Blood Urine Nitrate Urine Bilirubin Urine Urobilinogen Ur Leukocyte Esterase Urine RBC Urine WBC Ur Squamous Epith Cells Urine Bacteria Urine Mucus Ur Culture Indicated? Medical - DS: A/P - Patient/Caregiver Discharge Instructions Activity: as per physical therapy, increase activity as tolerated Diet: Regular Diet Additional Instructions: Follow-up PCP in 5 days follow-up urology Return to ER if worsening weakness or neuro changes Continue antibiotics for 5 days Prescriptions: Ciprofloxacin HCl [Cipro] 500 mg PO BID #10 tablet - Problem Maintenance (1) History of CVA (cerebrovascular accident) Status: Acute - Follow up Plan Follow up with: Isma Alonso MD [Primary Care Provider] - Disposition: Home, Self-Care Prognosis: Fair Rehab Potential: Fair I certify that the patient requires SNF services: No Overall status at discharge: patient is back to baseline Medical - DS: Qual - VTE Deep Vein Thrombosis/Pulmonary Embolism Present on Admission: No
== END 2018-09-09 11:30 | disposition home or self-care (01) ==
LOC: ED 14:21 → ICU 14:21
PROVIDERS: ADMIT Internal Medicine; ATTEND Internal Medicine

== ENCOUNTER 2021-02-22 15:15 | Inpatient (IN) ==
[2021-02-22] MEDS ORDERED: ACETAMINOPHEN 650 MG/65 ML BAG IV PRN (16:48)
[2021-02-22] MEDS ORDERED: guaiFENesin/CODEINE 10 ML UDC PO PRN (16:48)
[2021-02-22] MEDS ORDERED: MELATONIN 3 MG TABLET PO PRN (16:48)
[2021-02-22] MEDS ORDERED: ONDANSETRON 4 MG/2 ML VIAL IV PRN (16:48)
[2021-02-22] MEDS ORDERED: POTASSIUM CHLORIDE 20 MEQ PACKET PO PRN (16:48)
[2021-02-22] MEDS ORDERED: BISACODYL 10 MG SUPP.RECT PR PRN (16:48)
[2021-02-22] MEDS ORDERED: POLYETHYLENE GLYCOL 3350 17 GM PACKET PO PRN (16:48)
[2021-02-22] MEDS ORDERED: ACETAMINOPHEN 325 MG TABLET PO PRN (16:48)
[2021-02-22] MEDS ORDERED: MAGNESIUM SULFATE 2 GM/50 ML BAG IV PRN (16:48)
[2021-02-22] MEDS ORDERED: POTASSIUM CHLORIDE 40 MEQ in DEXTROSE 5% IN WATER 500 ML IV PRN (16:48)
[2021-02-22] MEDS ORDERED: 0.9 % SODIUM CHLORIDE 1,000 ML IV SCH (17:00)
[2021-02-22] MEDS: cefTRIAXone 2 GM in DEXTROSE 5% IN WATER 50 ML IV SCH (17:09)
--- NOTE | 2021-02-22 17:11 | Internal Med History&Physical ---
HPI History of Present Illness Patient information: Note initiated : 02/22/21 at 5:07 pm Service Date, if different from initiated Date: [] Patient: Deepthi Giang a 80 y/o F admitted on 02/22/21 for Hyponatremia. Chief Complaint: History of present illness: Ms. Giang is a 80 year old F with a history of CVA/hypertension/anxiety disorder/GERD who presents to the urgent care on 02/21 with dysuria/ increasing frequency. She was diagnosed with UTI and was started on nitrofurantoin. Patient however failed to improve and developed nausea vomiting following antibiotics. She returns to the urgent care where initial work-up was consistent with hyponatremia 122. Urine culture from the previous day gram- negative lavelle. Hospitalist service was consulted in light of sodium 122 and profound weakness/lethargy. At the time of my evaluation patient is accompanied with her and daughter Christi. She is able to answer most the questions. She denies fever but endorses to shaking chills this morning. She further denies bloody urine/bloody stool, worsening unilateral weakness, photophobia or myalgias but endorses to headache which has been a chronic issue. Review of systems 10 point review system was performed and is negative except as above PFSH PFSH All Active Problems Medicare annual wellness visit, subsequent (Acute) Fatigue (Chronic) Abscess (Acute) Otalgia, left ear (Acute) Postmenopausal atrophic vaginitis (Chronic) Pilonidal cyst without abscess (Acute) Chronic headaches (Chronic) Osteopenia (Chronic) Irritant contact dermatitis due to friction (Acute) Naloxone therapy refused (Chronic) long-term prescription benzodiazepine use (Chronic) Paresthesias (Acute) Facial paresthesia (Chronic) Paresthesia of left arm (Chronic) History of CVA (cerebrovascular accident) (Chronic) Diabetes mellitus type 2, controlled (Chronic) History of craniotomy (Acute) Nocturia (Acute) VSD (ventricular septal defect) (Chronic) Diabetes mellitus type 2 in nonobese (Chronic) Right thalamic infarction (Chronic) CVA (cerebral vascular accident) (Chronic) Subconjunctival hemorrhage of right eye (Acute) Stress (Chronic) Depression (Chronic) MVP (mitral valve prolapse) (Chronic) Pectus excavatum (Chronic) Costochondritis (Chronic) FH: heart disease (Chronic) Environmental allergies (Chronic) Chronic headaches (Chronic) History of recurrent UTIs (Chronic) GERD (gastroesophageal reflux disease) (Chronic) Steroid-induced hyperglycemia (Chronic) Peptic ulcer disease (Chronic) Hypercholesterolemia (Chronic) Cervicalgia (Chronic) Occipital neuralgia (Chronic) Abnormality of gait (Chronic) Insomnia (Chronic) Neck pain (Chronic) Gastric ulcer (Chronic) Lightheadedness (Chronic) Hx SBO (Chronic) Ischial bursitis (Chronic) Inguinal pain (Chronic) Metabolic Syndrome X (Chronic) 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) Cataract of both eyes (Chronic) Drug-induced myopathy (Chronic) Calcific tendinitis of left forearm (Chronic) Carpal tunnel syndrome, unspecified upper limb (Chronic) Trigger finger, left middle finger (Chronic) Monoclonal gammopathy (Chronic) Cervical disc disorder, unspecified, mid-cervical region (Chronic) Primary generalized (osteo)arthritis (Chronic) Other nonthrombocytopenic purpura (Chronic) Dysphagia (Chronic) Cough (Chronic) Diabetes mellitus type 2 in nonobese (Chronic) Hypertension (Chronic) Neuralgia and neuritis (Chronic) Myopathy (Chronic) Muscle weakness (generalized) (Chronic) Monoclonal paraproteinemia (Chronic) Dysmetabolic syndrome X (Chronic) Hypertension, essential (Chronic) Hyperlipidemia (Chronic) Headache (Chronic) Degenerative disc disease (Chronic) Cerebral aneurysm, nonruptured (Chronic) Diabetes mellitus, type II (Chronic) Degenerative joint disease (Chronic) Arteritis (Chronic) Anxiety (Chronic) Paresthesia (Acute) Polymyalgia rheumatica (Chronic) Anemia (Chronic) Medical History Abnormality of gait Abscess Resolved. Patient completed 5 days of Hibiclens wash as recommended by ID. Cultures of the perineum and nasal swabs both negative for MSSA or MRSA. Actinic keratosis Anemia Likely mild iron deficiency. Anxiety Much improved with counseling. Arteritis (02/10/14 Dr Perez) Basal cell carcinoma hx of right posterior thigh Calcific tendinitis of left forearm Carpal tunnel syndrome, unspecified upper limb Cataract of both eyes Cerebral aneurysm, nonruptured remote Cervical disc disorder of mid-cervical region Cervical disc disorder, unspecified, mid-cervical region Cervicalgia Chronic headaches Right parietal and occipital Chronic headaches Partially cervicogenic. Continue acetaminophen with codeine as needed. Precaution advised to not take opiates with benzodiazepines. [employer] reviewed today and no concerns. Pain contract is up-to-date. Costochondritis Cough CVA (cerebral vascular accident) 06/19/2018 Cyst small skin cyst,right popliteal space Degenerative disc disease (02/10/14 Dr Perez)Cervical Degenerative joint disease chronic low back pain secondary to DJD. osteoarthritis of neck. Depression Diabetes mellitus type 2 in nonobese Diabetes mellitus type 2, controlled Diabetes mellitus, type II Well-controlled with metformin 250 mg daily and diet. A1c 6.2% Diabetic diet and exercise also recommended MCGEE (dyspnea on exertion) Drug-induced myopathy Myopathy thought to be due to statin drugs Dysmetabolic syndrome X Dysphagia Dysuria Environmental allergies Exertional chest pain Facial paresthesia Left side Fatigue Lab work-up was unrevealing. Patient is tolerating the fatigue well, and states that exercise is helping. She will increase her activity. 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 Mid jejunal level Hypercholesterolemia Hyperlipidemia Statins caused severe myopathy Continue fenofibrate at current dose Lipid panel pending Hypertension Well-controlled at home on Coreg 6.25 mg twice daily and valsartan 160 mg daily Hypertension, essential Well-controlled at home per patient but she does not bring in logs. Any amount of stress can raise her blood pressure to 170 or 180. Continue Coreg 6.25 mg twice daily and valsartan 160 mg daily. Patient to monitor for the next 2 weeks and will call to get labs. When systolic blood pressure is greater than 170, patient may take a small dose of alprazolam, which brings it down again. Hyponatremia Hyponatremia Inguinal pain bilateral Insomnia Often stress related Ischial bursitis bilateral Late effects of accidental fall sacral and bilateral SIJ pain post fall. Perineal paresthesias. Lightheadedness intermittent long-term current use of non-steroidal anti-inflammatories (NSAID) (02/10/14 Dr Perez) Medicare annual wellness visit, subsequent Metabolic Syndrome X Monoclonal gammopathy Monoclonal paraproteinemia (02/10/14 Dr Perez) Muscle weakness (generalized) Patient underwent extensive work-up between [id number], symptoms eventually started to improve, but etiology was never fully determined. Stopping statin medications and Lyrica helped. Possible PMR. Patient no longer sees Dr. Perez and his symptoms had improved. Will check ESR, CBC, CBC, iron studies, CK and aldolase and TSH. Patient will follow-up in 1 month MVP (mitral valve prolapse) Mild posterior leaflet prolapse Myopathy (04/08/14-[place]) Neck pain Posterior Neuralgia and neuritis Greater occipital neuritis Occipital neuralgia H/O Other nonthrombocytopenic purpura Paresthesia Left side of body and face. She feels it has worsened a little bit in the left hand since her first Covid vaccine about 5 weeks ago We will continue to monitor this for now Paresthesia of left arm Somewhat ulnar pattern. Improved. Pectus excavatum Peptic ulcer disease Pilonidal cyst without abscess Resolved Polymyalgia rheumatica H/O Postmenopausal atrophic vaginitis Continue topical estrogen. Primary generalized (osteo)arthritis Right thalamic infarction 06/19/2018 lacunar Small bowel obstruction Steroid-induced hyperglycemia Stress Tenosynovitis of finger, hand, or wrist right Trigger finger, left middle finger Urinary tract infection recurrent Urinary tract infection VSD (ventricular septal defect) Membranous. Minimal left to right shunt flow. Surgical History History of appendectomy (~1968) History of biopsy (04/20/14) skeletal left thigh History of History of carpal tunnel release left History of colonoscopy (05/10/11) 05/10/11 HP. 04/17/17 WNL. 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 08/23/15 mild gastritis and Schatzki ring dilated. History of exploratory laparotomy 1989*for bowel obstruction History of repair of rotator cuff History of rotator cuff surgery (~1990) Status post [facility] Family History Unknown Asthma Family history of malignant neoplasm Mother Congestive heart failure Diabetes mellitus severe Esophageal varices Father , [id number] dying of coronary artery disease and stroke Cardiac disease CAD (coronary artery disease) Stroke Family/Other , 28-year-old sibling dying of cancer Diabetes mellitus Sibling Cancer Family/Other Cancer Other Kidney stone Social History household members: spouse housing: house lives independently: Yes marital status: education level: college occupational status: retired pets and animals: Yes leisure activities: reading other: 2 sons and 1 daughter & numerous grandchildren well-balanced diet: daily or most days eating out: rarely or never physical activity: walking frequency: 3-4 times per week alcohol intake frequency: does not drink substance use type: does not use domo/alevism: Religion MEDS/ALLERGIES Home Medications and Allergies Home Medications Medication Instructions Recorded Confirmed Type coenzyme Q10 30 mg capsule 300 mg PO QDAY cap 03/30/15 02/22/21 History alpha lipoic acid 300 mg capsule 300 mg PO QDAY 07/31/16 02/22/21 History alprazolam 0.25 mg tablet 0.125 mg PO BID PRN #30 tab 03/02/19 02/22/21 Rx polyethylene glycol 3350 17 17 g PO QDAY 03/02/19 02/22/21 History gram/dose oral powder calcium carbonate 500 mg (1,250 1 tab PO BID 03/18/19 02/22/21 History mg)-vitamin D3 400 unit tablet C-E2 0.2mg/E3 0.8mg/gm 0.5 g VAGINAL .QOD #30 g 06/02/19 02/22/21 Rx ferrous gluconate 324 mg (38 mg 324 mg PO QDAY tab 07/08/19 02/22/21 History iron) tablet lysine 500 mg tablet 500 mg PO BID 07/30/19 02/22/21 History valsartan 160 mg tablet 160 mg PO QDAY #90 tab 02/16/20 02/22/21 Rx metformin 500 mg tablet 250 mg PO QDAY #45 tab 05/23/20 02/22/21 Rx fenofibrate nanocrystallized 145 145 mg PO QDAY #90 tab 07/12/20 02/22/21 Rx mg tablet pantoprazole 40 mg tablet,delayed 40 mg PO QDAY #90 tab 07/12/20 02/22/21 Rx release carvedilol 6.25 mg tablet 6.25 mg PO BID #180 tab 07/27/20 02/22/21 Rx acetaminophen 300 mg-codeine 30 mg 1 tab PO QID PRN #120 tab 11/14/20 02/22/21 Rx tablet clopidogrel 75 mg tablet 75 mg PO DAILY #90 tab 12/14/20 02/22/21 Rx ascorbic acid (vitamin C) 1,000 mg PO BID 02/22/21 02/22/21 History kzsvibfn-qgk-tepro acid-vit K 1 tab PO QDAY 02/22/21 02/22/21 History [TRUEplus Diabetic Multivitamin] Allergies Allergy/AdvReac Type Severity Reaction Status Date / Time fluvastatin [From Lescol] Allergy Severe Weakness Verified 02/22/21 10:38 Moexipril [From Univasc] Allergy Intermediate Unknown Verified 02/22/21 10:38 rosuvastatin [From Crestor] Allergy Intermediate Weakness Verified 02/22/21 10:38 simvastatin [From Vytorin] Allergy Intermediate Weakness Verified 02/22/21 10:38 Tqtduof-Ljr-Hch Reductase Allergy Intermediate Weakness Verified 02/22/21 10:38 Inhibitor Sulfa (Sulfonamide Allergy Intermediate Itching Verified 02/22/21 10:38 Antibiotics) topiramate [From Topamax] Allergy Intermediate Unknown Verified 02/22/21 10:38 nitrofurantoin AdvReac Intermediate nausea Verified 02/22/21 11:03 vomiting ezetimibe [From Vytorin] AdvReac Mild Dark urine Verified 02/22/21 10:38 meperidine [From Demerol] AdvReac Mild Depression Verified 02/22/21 10:38 morphine AdvReac Mild Depression Verified 02/22/21 10:38 pregabalin [From Lyrica] AdvReac Mild Confusion Verified 02/22/21 10:38 quetiapine [From Seroquel] AdvReac Mild Hallucinati Verified 02/22/21 10:38 ng rofecoxib [From Vioxx] AdvReac Mild Other Verified 02/22/21 10:38 tramadol AdvReac Mild Confusion Verified 02/22/21 10:38 EXAM Constitutional Vitals: Temp Resp BP Pulse Ox 97.6 F 18 164/88 97 02/22/21 16:20 02/22/21 16:20 02/22/21 16:20 02/22/21 16:20 Head normocephalic Oral cavity moist No ear or nose discharge Eye no subconjunctival pallor, movement symmetrical Nonlabored breathing Nondistended nontender abdomen Lower extremity no cyanosis clubbing or joint swelling Skin no suspicious lesion Psych anxious but no hallucination Neuro normal higher function on limited neuro exam DATA Data Completed and Pending Labs: Labs from last 24 hours 02/22/21 02/22/21 17:05 17:05 Osmolality Pending Procalcitonin Pending A/P Narrative A/P Narrative: * Complicated GNR UTI-continue antibiotic coverage, de-escalate based on culture sensitivity * Euvolemic hyponatremia unclear etiology. Likely secondary to nausea vomiting and poor p.o. intake. Continue gentle crystalloids. Check every 4 hour sodium. Urine serum osmolarity to rule out SIADH * History of hypertension continue valsartan/Coreg * DM type II continue sliding-scale insulin/CC diet * GERD continue PPI * Prophylaxis Heparin Plan * Inpatient admission * 4 hourly sodium check/urine serum osmolarity * Gentle crystalloids * Antibiotic coverage * Pre-existing medical condition management home medications * PT OT nutrition support * Discharge planning per case management Time Spent With Patient Time: Total time spent is greater than 50% in coordination of care (as documented) at patient's floor/unit and/or counseling patient:
[2021-02-22 18:28] LABS: Appearance,Urine CLEAR (Clear); Bilirubin,Urine Negative (Negative); Color,Urine YELLOW; Culture Indicated,Urine No; Glucose,Urine (UA) Negative (Negative); Ketones,Urine Negative (Negative); Leukocyte Esterase,Urine Negative /ug (Negative); Nitrate,Urine Negative (Negative); Protein,Urine Negative (Negative); Specific Gravity,Urine 1.004 (1.000-1.035); Urine Blood Negative (Negative); Urobilinogen,Urine Negative
[2021-02-22] MEDS ORDERED: ALPRAZolam 0.25 MG TABLET PO PRN (19:20)
[2021-02-22] MEDS: ONDANSETRON 4 MG ODT TABLET SL PRN ×2 (20:20→23:39)
[2021-02-22] MEDS: HEPARIN 5,000 UNIT/ML VIAL SQ SCH (20:25)
[2021-02-22] MEDS: ACETAMINOPHEN W/CODEINE #3 1 TABLET PO PRN (20:28)
[2021-02-22] MEDS: CALCIUM W/VIT D3 500 MG TABLET PO SCH (20:30)
[2021-02-22] MEDS: CARVEDILOL 6.25 MG TABLET PO SCH (20:30)
[2021-02-22] MEDS: DOCUSATE SODIUM 100 MG CAPSULE PO SCH (20:30)
[2021-02-22] MEDS: CYANOCOBALAMIN (VITAMIN B-12) 500 MCG TABLET PO SCH (20:30)
[2021-02-22] MEDS: SENNOSIDES/DOCUSATE SODIUM 1 TAB TABLET PO SCH (20:30)
[2021-02-22] MEDS: 0.9 % SODIUM CHLORIDE 10 ML SYRINGE IV SCH (20:31)
[2021-02-23 04:48] LABS: Basophils # (Auto) 0.03 K/mcL (0.00-0.20); Basophils % (Auto) 0.6 % (0.0-2.0); Eosinophils % (Auto) 1.9 % (0.0-7.0); Hematocrit 31.8 % (36.0-48.0); Hemoglobin 10.9 g/dL (12.0-15.0); Lymphocytes # (Auto) 1.81 K/mcL (1.50-4.80); Lymphocytes % (Auto) 34.9 % (15.0-49.0); Mean Cell Volume 85.7 fL (80.0-100.0); Mean Corpuscular HGB Conc 34.3 g/dL (31.0-36.0); Mean Platelet Volume 10.7 fL (7.4-10.4); Monocytes # (Auto) 0.63 K/mcL (0.10-0.90); Monocytes % (Auto) 12.2 % (1.0-12.0); Neutrophils % (Auto) 50.4 % (38.0-78.0); Platelet Count 225 K/mcL (140-440); RBC 3.71 M/mcL (4.00-5.20); Red Cell Distribution Width 12.5 % (11.5-14.5); WBC 5.2 K/mcL (4.5-11.0)
[2021-02-23 05:00] LABS: ALT/SGPT 16 U/L (<40); AST/SGOT 44 U/L (<32); Albumin 4.3 gm/dL (3.2-5.2); Albumin/Globulin Ratio 1.6 (1.0-2.3); Alkaline Phosphatase 48 U/L (39-117); Bilirubin,Direct < 0.2 mg/dL (0-0.3); Bilirubin,Total 0.2 mg/dL (0.1-1.0); Blood Urea Nitrogen 22 mg/dL (8-23); Calcium 9.7 mg/dL (8.6-10.4); Carbon Dioxide 23 mmol/L (22-30); Chloride 100 mmol/L (96-108); Globulin 2.7 gm/dL (2.2-3.7); Glomerular Filtration Rate 82; Glucose 111 mg/dL (70-105); Lactate Dehydrogenase 204 U/L (135-225); Phosphorous 3.7 mg/dL (2.5-4.5); Triglycerides 98 mg/dL (<150); Uric Acid 1.7 mg/dL (2.5-8.0)
[2021-02-23] MEDS: 0.9 % SODIUM CHLORIDE 10 ML SYRINGE IV SCH ×3 (05:19→20:40)
[2021-02-23] MEDS ORDERED: DEXTROSE 5% IN WATER 500 ML IV SCH (06:15)
[2021-02-23] MEDS ORDERED: DEXTROSE 5% IN WATER 1,000 ML IV SCH (06:30)
[2021-02-23] MEDS: metFORMIN 500 MG TABLET PO SCH (07:32)
[2021-02-23] MEDS: PANTOPRAZOLE 40 MG TABLET PO SCH (07:33)
[2021-02-23] MEDS: CARVEDILOL 6.25 MG TABLET PO SCH ×2 (07:33→18:13)
[2021-02-23] MEDS: FENOFIBRATE 43 MG CAPSULE PO SCH (08:55)
[2021-02-23] MEDS: CYANOCOBALAMIN (VITAMIN B-12) 500 MCG TABLET PO SCH ×2 (08:55→20:40)
[2021-02-23] MEDS: LOSARTAN 50 MG TABLET PO SCH (08:56)
[2021-02-23] MEDS: MULTIVIT,THER IRON,CA,FA & MIN 1 TABLET PO SCH (08:56)
[2021-02-23] MEDS: THIAMINE 100 MG TABLET PO SCH (08:56)
[2021-02-23] MEDS: CLOPIDOGREL 75 MG TABLET PO SCH (08:56)
[2021-02-23] MEDS: FOLIC ACID 1 MG TABLET PO SCH (08:56)
[2021-02-23] MEDS: HEPARIN 5,000 UNIT/ML VIAL SQ SCH ×2 (08:56→20:39)
[2021-02-23] MEDS: DOCUSATE SODIUM 100 MG CAPSULE PO SCH ×2 (08:56→20:39)
[2021-02-23] MEDS: CALCIUM W/VIT D3 500 MG TABLET PO SCH ×2 (08:59→20:39)
[2021-02-23] MEDS: cefTRIAXone 2 GM in DEXTROSE 5% IN WATER 50 ML IV SCH (09:04)
[2021-02-23] MEDS: ACETAMINOPHEN W/CODEINE #3 1 TABLET PO PRN ×2 (09:48→20:19)
[2021-02-23] MEDS: 0.9 % SODIUM CHLORIDE 1,000 ML IV SCH (09:48)
--- NOTE | 2021-02-23 11:21 | Internal Med Progress Note ---
SUBJECTIVE Subjective Patient information: Note initiated : 02/23/21 at 11:15 am Service Date, if different from initiated Date: [] Patient: Deepthi Giang a 80 y/o F admitted on 02/22/21 for Hyponatremia. Chief Complaint: [] Interval history: Ms. Giang is a 80 year old F with a history of CVA/hypertension/anxiety disorder/GERD who presents to the urgent care on 02/21 with dysuria/ increasing frequency. She was diagnosed with UTI and was started on nitrofurantoin. Patient however failed to improve and developed nausea vomiting following antibiotics. She returns to the urgent care where initial work-up was consistent with hyponatremia 122. Urine culture from the previous day gram-negative lavelle. Hospitalist service was consulted in light of sodium 122 and profound weakness/lethargy. At the time of my evaluation patient is accompanied with her and daughter Christi. She is able to answer most the questions. She denies fever but endorses to shaking chills this morning. She further denies bloody urine/bloody stool, worsening unilateral weakness, photophobia or myalgias but endorses to headache which has been a chronic issue. 02/23-patient seen in room along with and daughter. Patient a lot better with improved weakness however not quite at baseline. Continuing PT OT/gentle crystalloids. Sodium improved to 127 from 122. Urine osmolarity suggestive against SIADH and likely secondary to poor solute intake and concurrent nausea. No overnight events including fever chills or seizures. Feels weak but ambulating with assistance. Continue dietary interventions. Anticipate discharge in 24 to 48 hours pending clinical improvement. GNR on cultures sensitivities pending. On antibiotic coverage. Constitutional Vitals: Vital Signs Temp Pulse Resp BP Pulse Ox 96.6 F L 73 18 137/79 96 02/23/21 08:00 02/23/21 08:00 02/23/21 08:00 02/23/21 08:00 02/23/21 08:00 Period Temp Pulse Resp BP Sys/Tay Pulse Ox Last 24 Hr 96.6 F-98.6 F 73-90 11-18 107-164/63-92 93-98 Intake and Output 02/22/21 02/23/21 02/23/21 21:59 05:59 13:59 Intake Total 6472 012 9161 Output Total 9184 418 6957 Balance 110 280 224 Weight 48.58 kg alert oriented Nonlabored breathing No anxiety Nondistended abdomen Intake & Output: Intake & Output 02/22/21 02/23/21 02/23/21 21:59 05:59 13:59 Intake Total 5058 302 4052 Output Total 1707 082 5852 Balance 110 280 224 Weight 48.58 kg Intake: Nourishment/Supplement quantity 315 390 (ml) IV 50 1204 Sodium Chloride 0.9% 1,000 ml @ 654 50 mls/hr IV .Q20H LYN Rx#: [id number] Dextrose 5% in Water 1,000 ml @ 500 500 mls/hr IV .Q2H LYN Rx#: [id number] Rocephin 2 gm In Dextrose 5% in 50 50 Water 50 ml @ 100 mls/hr IV DAILY LYN Rx#:[id number] Oral 795 390 120 Output: Void Amount 9004 202 3633 # of times incontinent of urine 0 Other: Meal Dinner Breakfast Percent of Meal Consumed 100% 100% Feeding Ability Independent Independent Nourishment/Supplement name milk milk Urine Appearance Clear Clear Clear Urine Color Bright Yellow Bright Yellow Bright Yellow Urine Odor Normal Normal Normal # Voids 1 OBJ DATA Labs CBC & Chem 7: 02/23/21 03:45 02/23/21 07:56 Labs: Abnormal Lab Results 02/23/21 02/23/21 02/23/21 07:56 03:45 03:45 RBC 3.71 L Hgb 10.9 L Hct 31.8 L MPV 10.7 H Wake % (Auto) 12.2 H Sodium 127 L Glucose 111 H Osmolality Uric Acid 1.7 L AST 44 H 02/23/21 02/22/21 02/22/21 00:15 20:02 17:05 RBC Hgb Hct MPV Wake % (Auto) Sodium 127 L 126 L Glucose Osmolality 266 L Uric Acid AST Meds: Medications Acetaminophen (Acetaminophen 325 Mg Tablet) 650 mg PO Q4-6HP PRN; Protocol PRN Reason: Per Pain Protocol/Fever > 101 Acetaminophen/Codeine Phosphate (Acetaminophen W/Codeine #3 1 Tablet) 1 tab PO QIDP PRN; Protocol PRN Reason: pain Last Admin: 02/23/21 09:48 Dose: 1 tab Documented by: Alprazolam (Alprazolam 0.25 Mg Tablet) 0.125 mg PO BIDP PRN PRN Reason: anxiety Bisacodyl (Bisacodyl 10 Mg Supp.Rect) 10 mg NE Q2-3DAYS PRN PRN Reason: Constipation Calcium/Vitamin D (Calcium W/Vit D3 500 Mg Tablet) 500 mg PO BID [facility] Last Admin: 02/23/21 08:59 Dose: 500 mg Documented by: Carvedilol (Carvedilol 6.25 Mg Tablet) 6.25 mg PO BIDCC [facility] Last Admin: 02/23/21 07:33 Dose: 6.25 mg Documented by: Clopidogrel Bisulfate (Clopidogrel 75 Mg Tablet) 75 mg PO DAILY [facility] Last Admin: 02/23/21 08:56 Dose: 75 mg Documented by: Cyanocobalamin (Cyanocobalamin (Vitamin B-12) 500 Mcg Tablet) 1,000 mcg PO BID [facility] Stop: 02/27/21 09:01 Last Admin: 02/23/21 08:55 Dose: 1,000 mcg Documented by: Docusate Sodium (Docusate Sodium 100 Mg Capsule) 100 mg PO BID [facility] Last Admin: 02/23/21 08:56 Dose: 100 mg Documented by: Fenofibrate (Fenofibrate 43 Mg Capsule) 129 mg PO DAILY [facility] Last Admin: 02/23/21 08:55 Dose: 129 mg Documented by: Folic Acid (Folic Acid 1 Mg Tablet) 1 mg PO DAILY [facility] Last Admin: 02/23/21 08:56 Dose: 1 mg Documented by: Guaifenesin/Codeine Phosphate (Guaifenesin/Codeine 10 Ml Udc) 10 ml PO Q4HP PRN PRN Reason: Cough Heparin Sodium (Porcine) (Heparin 5,000 Unit/Ml Vial) 5,000 unit SQ Q12 [facility] Last Admin: 02/23/21 08:56 Dose: 5,000 unit Documented by: Potassium Chloride 40 meq/ (Dextrose) 520 mls @ 130 mls/hr IV UD PRN PRN Reason: K+ = or < 3.5 Acetaminophen (Ofirmev) 650 mg in 65 mls @ 130 mls/hr IV Q6HP PRN; Protocol PRN Reason: Per Pain Protocol/Fever > 101 Magnesium Sulfate (Magnesium Sulfate) 2 gm in 50 mls @ 50 mls/hr IV UD PRN PRN Reason: MG = or < 1.7 Ceftriaxone Sodium 2 gm/ (Dextrose) 50 mls @ 100 mls/hr IV DAILY [facility]; Protocol Last Infusion: 02/23/21 09:40 Dose: Infused Documented by: Sodium Chloride (Sodium Chloride 0.9%) 1,000 mls @ 50 mls/hr IV .Q20H [facility] Last Admin: 02/23/21 09:48 Dose: 50 mls/hr Documented by: Iron Carb/Multivit/[place]/Folic Acid (Multivit,Ther Iron,Ca,Fa & Min 1 Tablet) 1 tab PO DAILY [facility] Last Admin: 02/23/21 08:56 Dose: 1 tab Documented by: Losartan Potassium (Losartan 50 Mg Tablet) 100 mg PO DAILY [facility] Last Admin: 02/23/21 08:56 Dose: 100 mg Documented by: Melatonin (Melatonin 3 Mg Tablet) 3 mg PO HSP PRN PRN Reason: Insomnia Metformin HCl ([facility] 500 Mg Tablet) [facility] Admin: 02/23/21 07:32 Dose: 250 mg Documented by: Ondansetron HCl (Ondansetron 4 Mg Odt Tablet) 4 mg SL Q4-6HP PRN; Protocol PRN Reason: Nausea And Vomiting Last Admin: 02/22/21 23:39 Dose: 4 mg Documented by: Ondansetron HCl (Ondansetron 4 Mg/2 Ml Vial) 4 mg IV Q4-6HP PRN; Protocol PRN Reason: Nausea And Vomiting Pantoprazole Sodium (Pantoprazole 40 Mg Tablet) 40 mg PO ACB [facility] Last Admin: 02/23/21 07:33 Dose: 40 mg Documented by: Polyethylene Glycol (Polyethylene Glycol 3350 17 Gm Packet) 17 gm PO DAILYP PRN PRN Reason: Constipation Potassium Chloride (Potassium Chloride 20 Meq Packet) 40 meq PO DAILYP PRN PRN Reason: K+ < 3.5 Senna/Docusate Sodium (Sennosides/Docusate Sodium 1 Tab Tablet) 1 tab PO HS [facility] Last Admin: 02/22/21 20:30 Dose: 1 tab Documented by: Sodium Chloride (0.9 % Sodium Chloride 10 Ml Syringe) 10 ml IV Q8 [facility] Last Admin: 02/23/21 05:19 Dose: Not Given Documented by: Thiamine HCl (Thiamine 100 Mg Tablet) 100 mg PO DAILY [facility] Last Admin: 02/23/21 08:56 Dose: 100 mg Documented by: A/P Narrative A/P Narrative: * Complicated GNR UTI-clinically improving on antibiotic coverage, de-escalate based on culture sensitivity * Euvolemic hyponatremia- Likely secondary to nausea vomiting and poor p.o. intake. Sodium improved from 08 19-08 24. * History of hypertension continue valsartan/Coreg * History of CVA on Plavix * DM type II continue sliding-scale insulin/CC diet/Metformin * GERD continue PPI * Prophylaxis Heparin Plan * 4-hour sodium checks * Gentle crystalloids * Antibiotic coverage to de-escalate based on sensitivities * Pre-existing medical condition management on home medications * Daily PT OT nutrition support * Discharge planning per case management likely in 24 to 48 hours Time Spent With Patient Time: Total time spent is greater than 50% in coordination of care (as documented) at patient's floor/unit and/or counseling patient: QUALITY VTE Deep Vein Thrombosis/Pulmonary Embolism Present on Admission: No
[2021-02-23] MEDS: SENNOSIDES/DOCUSATE SODIUM 1 TAB TABLET PO SCH (20:39)
[2021-02-24] MEDS: 0.9 % SODIUM CHLORIDE 1,000 ML IV SCH (05:34)
[2021-02-24] MEDS: 0.9 % SODIUM CHLORIDE 10 ML SYRINGE IV SCH (05:34)
[2021-02-24 05:51] LABS: Basophils # (Auto) 0.06 K/mcL (0.00-0.20); Basophils % (Auto) 1.1 % (0.0-2.0); Eosinophils # (Auto) 0.41 K/mcL (0.00-0.70); Eosinophils % (Auto) 7.6 % (0.0-7.0); Hematocrit 29.8 % (36.0-48.0); Hemoglobin 10.2 g/dL (12.0-15.0); Lymphocytes % (Auto) 35.4 % (15.0-49.0); Mean Cell Volume 86.1 fL (80.0-100.0); Mean Corpuscular HGB Conc 34.2 g/dL (31.0-36.0); Mean Platelet Volume 10.9 fL (7.4-10.4); Monocytes # (Auto) 0.53 K/mcL (0.10-0.90); Monocytes % (Auto) 9.9 % (1.0-12.0); Platelet Count 199 K/mcL (140-440); RBC 3.46 M/mcL (4.00-5.20); Red Cell Distribution Width 12.8 % (11.5-14.5); WBC 5.4 K/mcL (4.5-11.0)
[2021-02-24 06:25] LABS: ALT/SGPT 14 U/L (<40); AST/SGOT 38 U/L (<32); Albumin 3.9 gm/dL (3.2-5.2); Albumin/Globulin Ratio 1.6 (1.0-2.3); Alkaline Phosphatase 44 U/L (39-117); Bilirubin,Direct < 0.2 mg/dL (0-0.3); Bilirubin,Total 0.2 mg/dL (0.1-1.0); Blood Urea Nitrogen 16 mg/dL (8-23); Calcium 9.2 mg/dL (8.6-10.4); Carbon Dioxide 24 mmol/L (22-30); Chloride 99 mmol/L (96-108); Globulin 2.5 gm/dL (2.2-3.7); Glomerular Filtration Rate 86; Glucose 111 mg/dL (70-105); Lactate Dehydrogenase 199 U/L (135-225); Phosphorous 2.7 mg/dL (2.5-4.5); Triglycerides 91 mg/dL (<150); Uric Acid 1.7 mg/dL (2.5-8.0)
[2021-02-24] MEDS: ACETAMINOPHEN W/CODEINE #3 1 TABLET PO PRN (08:51)
[2021-02-24] MEDS: metFORMIN 500 MG TABLET PO SCH (08:52)
[2021-02-24] MEDS: CARVEDILOL 6.25 MG TABLET PO SCH (08:52)
[2021-02-24] MEDS: CALCIUM W/VIT D3 500 MG TABLET PO SCH (08:52)
[2021-02-24] MEDS: MULTIVIT,THER IRON,CA,FA & MIN 1 TABLET PO SCH (08:53)
[2021-02-24] MEDS: CYANOCOBALAMIN (VITAMIN B-12) 500 MCG TABLET PO SCH (08:53)
[2021-02-24] MEDS: FOLIC ACID 1 MG TABLET PO SCH (08:53)
[2021-02-24] MEDS: DOCUSATE SODIUM 100 MG CAPSULE PO SCH (08:53)
[2021-02-24] MEDS: THIAMINE 100 MG TABLET PO SCH (08:53)
[2021-02-24] MEDS: HEPARIN 5,000 UNIT/ML VIAL SQ SCH (08:53)
[2021-02-24] MEDS: FENOFIBRATE 43 MG CAPSULE PO SCH (08:54)
[2021-02-24] MEDS: cefTRIAXone 2 GM in DEXTROSE 5% IN WATER 50 ML IV SCH (09:07)
[2021-02-24] MEDS: PANTOPRAZOLE 40 MG TABLET PO SCH (09:50)
[2021-02-24] MEDS: LOSARTAN 50 MG TABLET PO SCH (09:50)
[2021-02-24] MEDS: CLOPIDOGREL 75 MG TABLET PO SCH (09:50)
--- NOTE | 2021-02-24 10:18 | Discharge Summary ---
Discharge Provider Provider Patient information: Note initiated : 02/24/21 at 10:15 am Service Date, if different from initiated Date: [] Patient: Deepthi Giang a 80 y/o F admitted on 02/22/21 for Hyponatremia. Discharge diagnosis * Complicated E. coli UTI-clinically improving on antibiotic coverage, pansensitive. Continue additional 5 days oral cefdinir * Euvolemic hyponatremia- Likely secondary to nausea vomiting and poor p.o. intake. Sodium improved to 132 * History of hypertension stable on home dose valsartan/Coreg * History of CVA on Plavix * DM type II managed on sliding-scale insulin/CC diet/Metformin * GERD managed on PPI Brief hospital course Ms. Giang is a 80 year old F with a history of CVA/hypertension/anxiety disorder/GERD who presents to the urgent care on 02/21 with dysuria/ increasing frequency. She was diagnosed with UTI and was started on nitrofurantoin. Patient however failed to improve and developed nausea vomiting following antibiotics. She returns to the urgent care where initial work-up was c onsistent with hyponatremia 122. Urine culture from the previous day gram- negative lavelle. Hospitalist service was consulted in light of sodium 122 and profound weakness/lethargy. At the time of my evaluation patient is accompanied with her and daughter Christi. She is able to answer most the questions. She denies fever but endorses to shaking chills this morning. She further denies bloody urine/bloody stool, worsening unilateral weakness, photophobia or myalgias but endorses to headache which has been a chronic issue. 02/23-patient seen in room along with and daughter. Patient a lot better with improved weakness however not quite at baseline. Continuing PT OT/gentle crystalloids. Sodium improved to 127 from 122. Urine osmolarity suggestive against SIADH and likely secondary to poor solute intake and concurrent nausea. No overnight events including fever chills or seizures. Feels weak but ambulating with assistance. Continue dietary interventions. Anticipate di scharge in 24 to 48 hours pending clinical improvement. GNR on cultures sensitivities pending. On antibiotic coverage. 02/24-patient doing a lot better. Pansensitive E. coli. Responding well to th ird-generation cephalosporin. Transition to oral antibiotic. Sodium 132. Discharging home with advised to follow-up with primary care physician and continue regular salt diet. No overnight events including fever chills nausea vomiting concerns per nursing staff. at bedside. Patient feels ready to be discharged and feels back at baseline Date of admission: 02/22/21 16:10 Discharge date: 02/24/21 Primary care physician: Rocky Silvestre DO Discharge Meds Discharge Medications Home Medications coenzyme Q10 30 mg capsule 300 mg PO QDAY cap 03/30/15 [History Confirmed Last Taken 09/08/18 08:00] alpha lipoic acid 300 mg capsule 300 mg PO QDAY 07/31/16 [History Confirmed 02/22/21 Last Taken 09/08/18 08:00] alprazolam 0.25 mg tablet 0.125 mg PO BID PRN #30 tab 03/02/19 [Rx Confirmed 02/22/21 Last Taken Unknown] polyethylene glycol 3350 17 gram/dose oral powder 17 g PO QDAY 03/02/19 [History Confirmed 02/22/21 Last Taken Unknown] calcium carbonate 500 mg (1,250 mg)-vitamin D3 400 unit tablet 1 tab PO BID 03/18/19 [History Confirmed 02/22/21 Last Taken Unknown] C-E2 0.2mg/E3 0.8mg/gm 0.5 g VAGINAL .QOD #30 g 06/02/19 [Rx Confirmed 02/22/21 Last Taken Unknown] ferrous gluconate 324 mg (38 mg iron) tablet 324 mg PO QDAY tab 07/08/19 [History Confirmed 02/22/21 Last Taken Unknown] lysine 500 mg tablet 500 mg PO BID 07/30/19 [History Confirmed 02/22/21 Last Taken Unknown] valsartan 160 mg tablet 160 mg PO QDAY #90 tab 02/16/20 [Rx Confirmed 02/22/21 Last Taken Unknown] metformin 500 mg tablet 250 mg PO QDAY #45 tab 05/23/20 [Rx Confirmed 02/22/21 Last Taken Unknown] fenofibrate nanocrystallized 145 mg tablet 145 mg PO QDAY #90 tab 07/12/20 [Rx Confirmed 02/22/21 Last Taken Unknown] pantoprazole 40 mg tablet,delayed release 40 mg PO QDAY #90 tab 07/12/20 [Rx Confirmed 02/22/21 Last Taken Unknown] carvedilol 6.25 mg tablet 6.25 mg PO BID #180 tab 07/27/20 [Rx Confirmed 02/22/21 Last Taken Unknown] acetaminophen 300 mg-codeine 30 mg tablet 1 tab PO QID PRN #120 tab 11/14/20 [Rx Confirmed 02/22/21 Last Taken Unknown] clopidogrel 75 mg tablet 75 mg PO DAILY #90 tab 12/14/20 [Rx Confirmed 02/22/21 Last Taken Unknown] ascorbic acid (vitamin C) 1,000 mg PO BID 02/22/21 [History Confirmed 02/22/21 Last Taken Unknown] bytdwbrt-atr-awmpe acid-vit K 1 tab PO QDAY 02/22/21 [History Confirmed 02/22/21 Last Taken Unknown] cefdinir 300 mg PO BID #10 cap 02/24/21 [Rx Last Taken Unknown] COURSE Hospital Course Hospital course: . Discharge diagnosis: , Time Spent with Patient Time attestation: Total time spent providing and/or coordinating discharge services: EXAM Constitutional Vitals: Temp Pulse Resp BP Pulse Ox 97.2 F 61 16 136/76 97 02/24/21 07:29 02/24/21 07:29 02/24/21 07:29 02/24/21 07:29 02/24/21 07:29 Discharge Data Data Completed and Pending Labs on day of discharge: Labs from last 24 hours 02/24/21 02/24/21 02/23/21 04:34 04:34 16:08 WBC 5.4 RBC 3.46 L Hgb 10.2 L Hct 29.8 L MCV 86.1 MCH 29.5 MCHC 34.2 RDW 12.8 Plt Count 199 MPV 10.9 H Neut % (Auto) 46.0 Lymph % (Auto) 35.4 Routt % (Auto) 9.9 Eos % (Auto) 7.6 H Baso % (Auto) 1.1 Lymph # (Auto) 1.90 Routt # (Auto) 0.53 Eos # (Auto) 0.41 Baso # (Auto) 0.06 Absolute Neutrophils 2.47 Sodium 132 L 127 L Potassium 4.0 Chloride 99 Carbon Dioxide 24 Anion Gap 9.0 BUN 16 Creatinine 0.6 GFR Calculation 86 Glucose 111 H Uric Acid 1.7 L Calcium 9.2 Phosphorus 2.7 Magnesium 2.0 Total Bilirubin 0.2 Direct Bilirubin < 0.2 GGT 12 AST 38 H ALT 14 Alkaline Phosphatase 44 Lactate Dehydrogenase 199 Total Protein 6.4 Albumin 3.9 Globulin 2.5 Albumin/Globulin Ratio 1.6 Triglycerides 91 02/23/21 12:00 WBC RBC Hgb Hct MCV MCH MCHC RDW Plt Count MPV Neut % (Auto) Lymph % (Auto) Routt % (Auto) Eos % (Auto) Baso % (Auto) Lymph # (Auto) Routt # (Auto) Eos # (Auto) Baso # (Auto) Absolute Neutrophils Sodium 126 L Potassium Chloride Carbon Dioxide Anion Gap BUN Creatinine GFR Calculation Glucose Uric Acid Calcium Phosphorus Magnesium Total Bilirubin Direct Bilirubin GGT AST ALT Alkaline Phosphatase Lactate Dehydrogenase Total Protein Albumin Globulin Albumin/Globulin Ratio Triglycerides Preliminary micro results at discharge 02/22/21 17:50 Urine Culture - Preliminary Urine - Clean Void Mid-Stream Discharge Plan Patient/Caregiver Discharge Instructions Activity: increase activity as tolerated Diet: Regular Diet Instructions: Hyponatremia (GEN) Activity Restrictions/Additional Instructions: Continue oral cefdinir for 5 days Return to ER worsening fever chills nausea vomiting Regular diet Follow-up PCP in 5 to 7 days Prescriptions: New cefdinir 300 MG capsule 300 mg PO BID Qty: 10 RF: 0 Continued valsartan 160 mg tablet 160 mg PO QDAY Qty: 90 RF: 3 metformin 500 mg tablet 250 mg PO QDAY Qty: 45 RF: 3 fenofibrate nanocrystallized 145 mg tablet 145 mg PO QDAY Qty: 90 RF: 3 pantoprazole [Protonix] 40 mg tablet,delayed release (DR/EC) 40 mg PO QDAY Qty: 90 RF: 3 carvedilol 6.25 mg tablet 6.25 mg PO BID Qty: 180 RF: 3 acetaminophen-codeine 300-30 mg tablet 1 tab PO QID PRN (Reason: pain) Qty: 120 RF: 2 clopidogrel 75 mg tablet 75 mg PO DAILY Qty: 90 RF: 3 coenzyme Q10 30 mg capsule 300 mg PO QDAY RF: 0 alpha lipoic acid 300 mg capsule 300 mg PO QDAY RF: 0 polyethylene glycol 3350 [Miralax] 17 gram/dose powder 17 g PO QDAY RF: 0 alprazolam 0.25 mg tablet 0.125 mg PO BID PRN (Reason: anxiety) Qty: 30 RF: 2 calcium carbonate-vitamin D3 [Calcium 500 + D] 500 mg(1,250mg) -400 unit tablet 1 tab PO BID RF: 0 C-E2 0.2mg/E3 0.8mg/gm 0.5 g VAGINAL .QOD Qty: 30 RF: 5 ferrous gluconate 324 mg (38 mg iron) tablet 324 mg (38 mg iron) tablet 324 mg PO QDAY RF: 0 lysine [L-Lysine] 500 mg tablet 500 mg PO BID RF: 0 lxpwvauf-zhi-ehxqv acid-vit K 500-10 mcg Tablet 1 tab PO QDAY RF: 0 ascorbic acid (vitamin C) 500 mg tablet 1,000 mg PO BID RF: 0 Follow Up Plan Follow up with: Rocky Silvestre DO [Primary Care Provider] - 03/08/21 4:00 pm (Please check in at 3:45) Patient Disposition: Home, Self-Care Rehab Potential: Fair I certify that the patient requires SNF services: No Overall status at discharge: patient is progressing back to baseline Discharge Orders: Discharge Order (Routine); Ordered 02/24/21 Ordered By: Augie ORTIZ VTE Deep Vein Thrombosis/Pulmonary Embolism Present on Admission: No
== END 2021-02-24 10:55 | disposition home or self-care (01) | DRG 690 ==
LOC: ICU 16:17
PROVIDERS: ADMIT Internal Medicine; ATTEND Internal Medicine

== ENCOUNTER 2025-04-04 14:30 | Inpatient (IN) ==
[2025-04-04] MEDS ORDERED: IOPAMIDOL 100 ML BOTTLE IV ONE (14:31)
[2025-04-04] MEDS: ONDANSETRON 4 MG/2 ML VIAL IV ONE (15:12)
[2025-04-04] MEDS: 0.9 % SODIUM CHLORIDE 1,000 ML IV ONE (15:12)
[2025-04-04 15:27] LABS: Basophils # (Auto) 0.02 K/mcL (0.00-0.30); Basophils % (Auto) 0.2 % (0.0-2.0); Eosinophils # (Auto) 0.11 K/mcL (0.00-0.70); Eosinophils % (Auto) 0.9 % (0.0-7.0); Hematocrit 38.2 % (34.1-44.9); Hemoglobin 12.8 g/dL (11.2-15.7); Lymphocytes # (Auto) 1.18 K/mcL (1.50-4.80); Lymphocytes % (Auto) 10.0 % (15.5-49.0); Mean Corpuscular HGB Conc 33.5 g/dL (31.0-36.0); Monocytes # (Auto) 0.67 K/mcL (0.10-0.90); Monocytes % (Auto) 5.7 % (1.0-12.0); Neutrophils % (Auto) 82.4 % (38.0-78.0); Platelet Count 248 K/mcL (140-440); RBC 4.25 M/mcL (3.59-5.38); WBC 11.8 K/mcL (4.5-11.0)
[2025-04-04 15:46] LABS: ALT/SGPT 16 U/L (<40); AST/SGOT 28 U/L (<32); Albumin 4.5 gm/dL (3.2-5.2); Albumin/Globulin Ratio 1.6 (1.0-2.3); Alkaline Phosphatase 65 U/L (39-117); Anion Gap 14.0 (8.0-16.0); Bilirubin,Total 0.4 mg/dL (0.1-1.0); Blood Urea Nitrogen 22 mg/dL (8-23); Calcium 9.8 mg/dL (8.6-10.4); Carbon Dioxide 22 mmol/L (22-30); Chloride 97 mmol/L (96-108); Globulin 2.9 gm/dL (2.2-3.7); Glucose 153 mg/dL (70-105); Potassium 4.4 mmol/L (3.3-5.1); Sodium 133 mmol/L (133-145)
[2025-04-04 15:53] LABS: Bacteria,Urine Few /hpf (0); Bilirubin,Urine Negative (Negative); Color,Urine Yellow; Glucose,Urine (UA) Negative (Negative); Ketones,Urine Negative (Negative); Leukocyte Esterase,Urine Negative /uL (Negative); Mucus,Urine Few /hpf; PH,Urine 6.5 (5.0-9.0); Protein,Urine 30 mg/dL (Negative); Specific Gravity,Urine 1.020 (1.000-1.035); Urobilinogen,Urine Normal
[2025-04-04] MEDS ORDERED: DEXTROSE 50% 50 ML VIAL IV PRN (16:12)
[2025-04-04] MEDS ORDERED: PROMETHAZINE 25 MG/ML VIAL IV PRN (16:12)
[2025-04-04] MEDS ORDERED: DEXTROSE 31 GM ORAL.SUSP PO PRN (16:12)
[2025-04-04] MEDS ORDERED: hydrALAZINE 20 MG/ML VIAL IV PRN ×2 (16:19→18:40)
[2025-04-04] MEDS ORDERED: [UNRECOGNIZED DRUG - OTHER] IV SCH (18:00)
[2025-04-04] MEDS ORDERED: SODIUM CHLORIDE IV SCH (18:00)
[2025-04-04] MEDS ORDERED: fentaNYL 100 MCG/2 ML VIAL IV PRN (18:19)
[2025-04-04] MEDS ORDERED: LORazepam 2 MG/ML VIAL IV PRN (18:23)
[2025-04-04] MEDS: INSULIN LISPRO 1 UNIT/0.01 ML UNIT SQ SCH (18:57)
[2025-04-04] MEDS: 0.9 % SODIUM CHLORIDE 1,000 ML IV SCH (19:31)
[2025-04-04] MEDS: ACETAMINOPHEN 1,000 MG/100 ML BAG IV SCH (19:32)
[2025-04-04] MEDS: CARVEDILOL 12.5 MG TABLET PO SCH (19:33)
[2025-04-04] MEDS: FAMOTIDINE/PF 20 MG/2 ML VIAL IV SCH (21:00)
[2025-04-04] MEDS: SENNOSIDES 1 TABLET PO SCH (21:00)
[2025-04-04] MEDS: CEFUROXIME 500 MG TABLET PO SCH (21:02)
[2025-04-04] MEDS: DOCUSATE SODIUM 100 MG CAPSULE PO SCH (21:02)
[2025-04-04] MEDS: 0.9 % SODIUM CHLORIDE 10 ML SYRINGE IV SCH (21:03)
[2025-04-05 05:45] LABS: Hematocrit 34.3 % (34.1-44.9); Hemoglobin 11.3 g/dL (11.2-15.7); Mean Corpuscular HGB Conc 32.9 g/dL (31.0-36.0); Platelet Count 232 K/mcL (140-440); RBC 3.78 M/mcL (3.59-5.38); WBC 7.1 K/mcL (4.5-11.0)
[2025-04-05 05:54] LABS: ALT/SGPT 10 U/L (<40); AST/SGOT 22 U/L (<32); Albumin 3.7 gm/dL (3.2-5.2); Albumin/Globulin Ratio 1.7 (1.0-2.3); Alkaline Phosphatase 52 U/L (39-117); Anion Gap 11.0 (8.0-16.0); Bilirubin,Total 0.3 mg/dL (0.1-1.0); Blood Urea Nitrogen 10 mg/dL (8-23); Calcium 8.4 mg/dL (8.6-10.4); Carbon Dioxide 21 mmol/L (22-30); Chloride 104 mmol/L (96-108); Globulin 2.2 gm/dL (2.2-3.7); Glucose 113 mg/dL (70-105); Potassium 3.5 mmol/L (3.3-5.1); Sodium 136 mmol/L (133-145)
[2025-04-05] MEDS ORDERED: DICLOFENAC SODIUM 2.5 ML DROPS OP PRN (07:40)
[2025-04-05 08:51] LABS: RBC Morphology NORMAL (Normal)
[2025-04-05] MEDS ORDERED: SPIRONOLACTONE 25 MG TABLET PO SCH (09:00)
[2025-04-05] MEDS: ASPIRIN 81 MG TAB.CHEW CHEWED SCH (09:36)
[2025-04-05] MEDS: ENOXAPARIN 40 MG/0.4 ML SYRINGE SQ SCH (09:37)
[2025-04-05] MEDS: ONDANSETRON 4 MG/2 ML VIAL IV PRN (10:30)
[2025-04-06 07:35] LABS: Basophils # (Auto) 0.05 K/mcL (0.00-0.30); Basophils % (Auto) 0.7 % (0.0-2.0); Eosinophils # (Auto) 0.17 K/mcL (0.00-0.70); Eosinophils % (Auto) 2.2 % (0.0-7.0); Hematocrit 32.5 % (34.1-44.9); Hemoglobin 10.5 g/dL (11.2-15.7); Lymphocytes # (Auto) 1.85 K/mcL (1.50-4.80); Lymphocytes % (Auto) 24.3 % (15.5-49.0); Mean Corpuscular HGB Conc 32.3 g/dL (31.0-36.0); Monocytes # (Auto) 0.81 K/mcL (0.10-0.90); Monocytes % (Auto) 10.7 % (1.0-12.0); Neutrophils % (Auto) 61.4 % (38.0-78.0); Platelet Count 228 K/mcL (140-440); RBC 3.46 M/mcL (3.59-5.38); WBC 7.6 K/mcL (4.5-11.0)
[2025-04-06 07:52] LABS: ALT/SGPT 11 U/L (<40); AST/SGOT 29 U/L (<32); Albumin 3.5 gm/dL (3.2-5.2); Albumin/Globulin Ratio 1.5 (1.0-2.3); Alkaline Phosphatase 46 U/L (39-117); Anion Gap 17.0 (8.0-16.0); Bilirubin,Total 0.3 mg/dL (0.1-1.0); Blood Urea Nitrogen 9 mg/dL (8-23); Calcium 8.3 mg/dL (8.6-10.4); Carbon Dioxide 17 mmol/L (22-30); Chloride 102 mmol/L (96-108); Globulin 2.3 gm/dL (2.2-3.7); Glucose 64 mg/dL (70-105); Potassium 4.0 mmol/L (3.3-5.1); Sodium 136 mmol/L (133-145)
[2025-04-06] MEDS: ESTRADIOL VAG CREAM 42GM TUBE VAG SCH (10:44)
[2025-04-07] MEDS ORDERED: DIATRIZOATE MEGLU/DIATRIZO SOD 120ML BOTTLE PO ONE (11:38)
[2025-04-08 06:32] LABS: Basophils # (Auto) 0.02 K/mcL (0.00-0.30); Basophils % (Auto) 0.3 % (0.0-2.0); Eosinophils # (Auto) 0.28 K/mcL (0.00-0.70); Eosinophils % (Auto) 4.7 % (0.0-7.0); Hematocrit 28.9 % (34.1-44.9); Hemoglobin 9.8 g/dL (11.2-15.7); Lymphocytes # (Auto) 1.33 K/mcL (1.50-4.80); Lymphocytes % (Auto) 22.3 % (15.5-49.0); Mean Corpuscular HGB Conc 33.9 g/dL (31.0-36.0); Monocytes # (Auto) 0.60 K/mcL (0.10-0.90); Monocytes % (Auto) 10.1 % (1.0-12.0); Neutrophils % (Auto) 62.1 % (38.0-78.0); Platelet Count 198 K/mcL (140-440); RBC 3.24 M/mcL (3.59-5.38); WBC 6.0 K/mcL (4.5-11.0)
[2025-04-08 17:18] VITALS: O2SAT 98
[2025-04-08 18:22] VITALS: TEMP 98.6
== END 2025-04-08 18:26 | disposition home or self-care (01) | DRG 389 ==
LOC: ED 14:30 → MEDSUR 14:30
PROVIDERS: ADMIT Surgery; ATTEND Family Medicine Adult Medicine